=== PATIENT | female | born 1975 | race Caucasian/White ===

== ENCOUNTER 2021-02-22 12:15 | Emergency (ER) | payer MEDICARE, OTHER ==
[2021-02-22 12:39] VITALS: TEMP 98.5
[2021-02-22] MEDS ORDERED: SODIUM CHLORIDE 0.9% 1,000 ML IV STA (13:02)
[2021-02-22] MEDS ORDERED: KETOROLAC 15 MG/ML 1 ML VIAL IVP STA (13:16)
--- NOTE | 2021-02-22 13:18 | ED ---
General Adult HPI - General Chief complaint: Abdominal Pain Stated complaint: Abd Pain Time Seen by Provider: 02/22/21 13:02 Source: patient Mode of arrival: ambulatory Limitations: no limitations - History of Present Illness Initial comments: Dictation was produced using [employer] dictation software. please excuse any grammatical, word or spelling errors. Chief Complaint: 46-year-old female past medical history of kidney stones presen ts with left-sided flank pain. History of Present Illness: She is a 46-year-old female she was seen in [facility] emergency department for kidney stone 2 weeks ago. She states that after that appointment and her symptoms improved slowly the days after. She did schedule an appointment with her urologist for tomorrow. This morning her pain came back. She states that it's colicky located to left flank. Patient states that this is typical for her usual kidney stone pain. She was told that 2 weeks ago she had a small 2 mm stone The ROS documented in this emergency department record has been reviewed and confirmed by me. Those systems with pertinent positive or negative responses have been documented in the HPI. All other systems are other negative and/or noncontributory. PHYSICAL EXAM: General Impression: Alert and oriented x3, acute distress secondary to pain HEENT: Normocephalic atraumatic, extra-ocular movements intact, pupils equal and reactive to light bilaterally, mucous membranes moist. Cardiovascular: Heart regular rate and rhythm Chest: Able to complete full sentences, no retractions, no tachypnea Abdomen: abdomen soft, non-tender, non-distended, no organomegaly Musculoskeletal: Pulses present and equal in all extremities, no peripheral edema Motor: no focal deficits noted Neurological: CN II-XII grossly intact, no focal motor or sensory deficits noted Skin: Intact with no visualized rashes Psych: Normal affect and mood ED course: 46-year-old male presents to the emergency department for symptomatic nephrolithiasis. Vital signs upon arrival are within acceptable limits. Laboratory evaluation obtained. CBC, metabolic panel is unremarkable. Urinaly sis is negative. Ultrasound of the kidneys urinary bladder shows 0.5 cm right renal calculus without any bile or hydronephrosis. Patient reports clinically that her symptoms are the left side. At this point patient is well-appearing with stable vital signs and labs. Patient be discharged. She has an appointment with her urologist tomorrow. - Related Data Allergies Allergy/AdvReac Type Severity Reaction Status Date / Time No Known Allergies Allergy Verified 02/22/21 12:38 Review of Systems ROS Statement: Those systems with pertinent positive or pertinent negative responses have been documented in the HPI. ROS Other: All systems not noted in ROS Statement are negative. Past Medical History Additional Past Medical History / Comment(s): kidney stones History of Any Multi-Drug Resistant Organisms: None Reported Past Surgical History: Orthopedic Surgery, Uterine Ablation Additional Past Surgical History / Comment(s): eye surgery, rt foot Past Psychological History: No Psychological Hx Reported Smoking Status: Current every day smoker Past Alcohol Use History: None Reported Past Drug Use History: None Reported General Exam Limitations: no limitations Course Vital Signs 02/22/21 12:35 Temperature 98.5 F Pulse Rate 77 Respiratory 20 Rate Blood Pressure 129/73 O2 Sat by Pulse 97 Oximetry Medical Decision Making - Lab Data Result diagrams: 02/22/21 13:26 02/22/21 13:26 Lab Results 02/22/21 02/22/21 02/22/21 Range/Units 13:26 13:26 13:26 WBC 10.0 (3.8-10.6) k/uL RBC 4.23 (3.80-5.40) m/uL Hgb 13.2 (11.4-16.0) gm/dL Hct 38.7 (34.0-46.0) % MCV 91.5 (80.0-100.0) fL MCH 31.1 (25.0-35.0) pg MCHC 34.0 (31.0-37.0) g/dL RDW 12.9 (11.5-15.5) % Plt Count 290 (150-450) k/uL MPV 6.4 Neutrophils % 56 % Lymphocytes % 32 % Monocytes % 6 % Eosinophils % 4 % Basophils % 1 % Neutrophils # 5.6 (1.3-7.7) k/uL Lymphocytes # 3.2 (1.0-4.8) k/uL Monocytes # 0.6 (0-1.0) k/uL Eosinophils # 0.4 (0-0.7) k/uL Basophils # 0.1 (0-0.2) k/uL Sodium 139 (137-145) mmol/L Potassium 4.5 (3.5-5.1) mmol/L Chloride 110 H (98-107) mmol/L Carbon Dioxide 24 (22-30) mmol/L Anion Gap 5 mmol/L BUN 17 (7-17) mg/dL Creatinine 0.81 (0.52-1.04) mg/dL Est GFR (CKD-EPI)AfAm >90 (>60 ml/min/1.73 sqM) Est GFR (CKD-EPI)NonAf 89 (>60 ml/min/1.73 sqM) Glucose 89 (74-99) mg/dL Calcium 8.4 (8.4-10.2) mg/dL Urine Color Yellow Urine Appearance Clear (Clear) Urine pH 6.5 (5.0-8.0) Ur Specific [place] 1.024 (1.001-1.035) Urine Protein Negative (Negative) Urine Glucose (UA) Negative (Negative) Urine Ketones Negative (Negative) Urine Blood Negative (Negative) Urine Nitrite Negative (Negative) Urine Bilirubin Negative (Negative) Urine Urobilinogen <2.0 (<2.0) mg/dL Ur Leukocyte Esterase Negative (Negative) Disposition Clinical Impression: Kidney stone Disposition: HOME SELF-CARE Condition: Good Is patient prescribed a controlled substance at d/c from ED?: No Referrals: None,Stated [Primary Care Provider] - 1-2 days Time of Disposition: 15:43
[2021-02-22 13:49] LABS: Basophils # (A) 0.1 k/uL (0-0.2); Basophils % (A) 1 %; Eosinophils # (A) 0.4 k/uL (0-0.7); Eosinophils % (A) 4 %; HCT 38.7 % (34.0-46.0); HGB 13.2 gm/dL (11.4-16.0); Lymphocytes # (A) 3.2 k/uL (1.0-4.8); Lymphocytes % (A) 32 %; MCH 31.1 pg (25.0-35.0); MCV 91.5 fL (80.0-100.0); Mean Platelet Volume 6.4; Monocytes # (A) 0.6 k/uL (0-1.0); Monocytes % (A) 6 %; Neutrophils # (A) 5.6 k/uL (1.3-7.7); Neutrophils % (A) 56 %; Platelet Count 290 k/uL (150-450); RBC 4.23 m/uL (3.80-5.40); RDW 12.9 % (11.5-15.5)
[2021-02-22 13:59] LABS: African American GFR (CKD) >90 (>60 ml/min/1.73 sqM); Anion Gap 5 mmol/L; Blood Urea Nitrogen 17 mg/dL (7-17); Calcium 8.4 mg/dL (8.4-10.2); Carbon Dioxide 24 mmol/L (22-30); Chloride 110 mmol/L (98-107); Glucose 89 mg/dL (74-99); Non-African American GFR(CKD) 89 (>60 ml/min/1.73 sqM); Potassium 4.5 mmol/L (3.5-5.1); Sodium 139 mmol/L (137-145)
--- NOTE | 2021-02-22 14:10 | US ---
EXAMINATION TYPE: US kidneys/renal and bladder DATE OF EXAM: 02/22/2021 COMPARISON: NONE CLINICAL HISTORY: kidney stone pain. Right flank pain, midline pelvic and lower right pelvic pain; cailin lata stated has had prior renal stones EXAM MEASUREMENTS: Right Kidney: 10.9 x 6.2 x 4.9 cm Left Kidney: 11.4 x 5.6 x 6.4 cm Post Void Residual Volume: not assessed on EC patient Right Kidney: hyperechoic focus with posterior shadowing is noted mid pole = 0.4 x 0.5 x 0.3cm and co mpatible with renal calculus. No significant hydronephrosis. Left Kidney: No hydronephrosis or masses seen Bladder: wnl Bilateral Jets seen: yes IMPRESSION: 0.5 cm right renal calculus. No significant bilateral hydronephrosis.
[2021-02-22] MEDS ORDERED: MORPHINE SULFATE 4 MG/ML SYRINGE IVP STA (14:20)
[2021-02-22 15:38] LABS: Appearance,Urine Clear (Clear); Bilirubin,Urine Negative (Negative); Blood,Urine Negative (Negative); Color,Urine Yellow; Glucose,Urine (UA) Negative (Negative); Ketones,Urine Negative (Negative); Leukocyte Esterase,Urine Negative (Negative); Nitrite,Urine Negative (Negative); PH, Urine 6.5 (5.0-8.0); Protein,Urine Negative (Negative); Specific Gravity,Urine 1.024 (1.001-1.035); Urobilinogen,Urine <2.0 mg/dL (<2.0)
[2021-02-22 16:09] VITALS: BP 120/83; PULSE 74; RESP 16
== END 2021-02-22 16:09 | disposition home or self-care (01) ==
LOC: EC 12:15
DX: N20.0 Calculus of kidney (principal); F17.200 Nicotine dependence, unspecified, uncomplicated
CPT/HCPCS: 99284 ×2; 36415; 80048; 85025; 81003; 76770; J2270; J1885

== ENCOUNTER 2022-05-27 23:45 | Emergency (ER) | payer MEDICARE, OTHER ==
--- NOTE | 2022-05-28 00:18 | XR ---
EXAMINATION TYPE: XR KUB DATE OF EXAM: 05/28/2022 COMPARISON: NONE HISTORY: Left lower quadrant pain TECHNIQUE: 2 views FINDINGS: 2 views upright were obtained. No sign of intestinal obstruction or pneumoperitoneum. Fecal pattern is normal. No evidence of a mass. There are no pathologic calcifications over the kidneys. IMPRESSION: No acute
[2022-05-28 00:30] LABS: Basophils # (A) 0.1 k/uL (0-0.2); Basophils % (A) 1 %; Eosinophils # (A) 0.4 k/uL (0-0.7); Eosinophils % (A) 2 %; HCT 43.1 % (34.0-46.0); HGB 14.1 gm/dL (11.4-16.0); Lymphocytes # (A) 3.6 k/uL (1.0-4.8); Lymphocytes % (A) 21 %; MCH 30.4 pg (25.0-35.0); MCHC 32.6 g/dL (31.0-37.0); MCV 93.2 fL (80.0-100.0); Mean Platelet Volume 6.6; Monocytes % (A) 6 %; Neutrophils # (A) 11.5 k/uL (1.3-7.7); Neutrophils % (A) 69 %; Platelet Count 312 k/uL (150-450); RBC 4.63 m/uL (3.80-5.40); RDW 13.3 % (11.5-15.5); WBC 16.8 k/uL (3.8-10.6)
[2022-05-28 00:49] LABS: Albumin 4.3 g/dL (3.5-5.0); Potassium 4.5 mmol/L (3.5-5.1); Total Bilirubin 0.2 mg/dL (0.2-1.3); Total Protein 6.8 g/dL (6.3-8.2)
[2022-05-28] MEDS ORDERED: MORPHINE SULFATE 4 MG/ML SYRINGE IV STA ×2 (02:43→03:48)
--- NOTE | 2022-05-28 02:47 | ED ---
Abdominal Pain HPI - General Chief Complaint: Nausea/Vomiting/Diarrhea Stated Complaint: poss blockage Time Seen by Provider: 05/28/22 02:20 Source: patient Mode of arrival: ambulatory Limitations: no limitations - History of Present Illness MD Complaint: abdominal pain Onset/Timin -: hour(s) Location: [facility] Radiation: none Migration to: no migration Severity: moderate Quality: cramping, sharp Consistency: colicky Improves With: nothing Worsens With: nothing Associated Symptoms: nausea - Related Data Previous Rx's Medication Instructions Recorded Amoxic-Pot Clav 875-125Mg 1 tab PO Q12HR 1 Days #14 tab 05/28/22 [Augmentin 875-125] HYDROcodone/APAP 5-325MG [[place] 1 tab PO Q4HR PRN 3 Days #18 tab 05/28/22 5-325] Ondansetron Odt [Zofran ODT] 4 mg PO Q8HR PRN #10 tab 05/28/22 Allergies Allergy/AdvReac Type Severity Reaction Status Date / Time adhesive tape Allergy Unknown Verified 05/27/22 23:57 bacitracin Allergy Unknown Verified 05/27/22 23:57 [From Neosporin ([id number])] bee venom protein (honey bee) Allergy Unknown Verified 05/27/22 23:57 neomycin Allergy Unknown Verified 05/27/22 23:57 [From Neosporin ([id number])] polymyxin B Allergy Unknown Verified 05/27/22 23:57 [From Neosporin ([id number])] Review of Systems ROS Statement: Those systems with pertinent positive or pertinent negative responses have been documented in the HPI. ROS Other: All systems not noted in ROS Statement are negative. Constitutional: Denies: fever, chills Respiratory: Denies: cough, dyspnea Cardiovascular: Denies: chest pain, palpitations, edema Gastrointestinal: Reports: abdominal pain, nausea. Denies: vomiting, diarrhea, constipation, melena, hematochezia Genitourinary: Denies: dysuria, hematuria, abnormal menses Musculoskeletal: Denies: back pain Skin: Denies: rash Neurological: Denies: headache Past Medical History Additional Past Medical History / Comment(s): kidney stones, DIVERTICULITIS History of Any Multi-Drug Resistant Organisms: None Reported Past Surgical History: Orthopedic Surgery, Uterine Ablation Additional Past Surgical History / Comment(s): eye surgery, rt foot Past Psychological History: No Psychological Hx Reported Smoking Status: Current every day smoker Past Alcohol Use History: None Reported Past Drug Use History: None Reported General Exam Limitations: no limitations General appearance: alert, in no apparent distress Head exam: Present: atraumatic, normocephalic Eye exam: Present: normal appearance. Absent: scleral icterus, conjunctival injection Neck exam: Present: normal inspection Respiratory exam: Present: normal lung sounds bilaterally. Absent: respiratory distress, wheezes, rales, rhonchi, stridor Cardiovascular Exam: Present: regular rate, normal rhythm, normal heart sounds. Absent: systolic murmur, diastolic murmur, rubs, gallop GI/Abdominal exam: Present: soft, tenderness, normal bowel sounds. Absent: distended, guarding, rebound, rigid, mass, pulsatile mass, hernia Extremities exam: Present: normal inspection, normal capillary refill. Absent: pedal edema, calf tenderness Back exam: Present: normal inspection. Absent: CVA tenderness (R), CVA tenderness (L) Neurological exam: Present: alert Skin exam: Present: warm, dry, intact, normal color. Absent: rash Course Vital Signs 05/27/22 23:55 Temperature 98.0 F Pulse Rate 74 Respiratory 16 Rate Blood Pressure 104/64 O2 Sat by Pulse 98 Oximetry Medical Decision Making - Lab Data Result diagrams: 05/28/22 00:05 05/28/22 00:05 Lab Results 05/28/22 05/28/22 05/28/22 Range/Units 00:05 00:05 02:57 WBC 16.8 H (3.8-10.6) k/uL RBC 4.63 (3.80-5.40) m/uL Hgb 14.1 (11.4-16.0) gm/dL Hct 43.1 (34.0-46.0) % MCV 93.2 (80.0-100.0) fL MCH 30.4 (25.0-35.0) pg MCHC 32.6 (31.0-37.0) g/dL RDW 13.3 (11.5-15.5) % Plt Count 312 (150-450) k/uL MPV 6.6 Neutrophils % 69 % Lymphocytes % 21 % Monocytes % 6 % Eosinophils % 2 % Basophils % 1 % Neutrophils # 11.5 H (1.3-7.7) k/uL Lymphocytes # 3.6 (1.0-4.8) k/uL Monocytes # 1.0 (0-1.0) k/uL Eosinophils # 0.4 (0-0.7) k/uL Basophils # 0.1 (0-0.2) k/uL Sodium 136 L (137-145) mmol/L Potassium 4.5 (3.5-5.1) mmol/L Chloride 104 (98-107) mmol/L Carbon Dioxide 19 L (22-30) mmol/L Anion Gap 13 mmol/L BUN 18 H (7-17) mg/dL Creatinine 0.99 (0.52-1.04) mg/dL Est GFR (CKD-EPI)AfAm 79 (>60 ml/min/1.73 sqM) Est GFR (CKD-EPI)NonAf 69 (>60 ml/min/1.73 sqM) Glucose 84 (74-99) mg/dL Calcium 9.0 (8.4-10.2) mg/dL Total Bilirubin 0.2 (0.2-1.3) mg/dL AST 19 (14-36) U/L ALT 12 (4-34) U/L Alkaline Phosphatase 80 (38-126) U/L Total Protein 6.8 (6.3-8.2) g/dL Albumin 4.3 (3.5-5.0) g/dL Amylase 54 (30-110) U/L Lipase 175 (23-300) U/L Urine Color Yellow Urine Appearance Cloudy H (Clear) Urine pH 6.0 (5.0-8.0) Ur Specific [place] 1.032 (1.001-1.035) Urine Protein Trace H (Negative) Urine Glucose (UA) Negative (Negative) Urine Ketones Negative (Negative) Urine Blood Negative (Negative) Urine Nitrite Negative (Negative) Urine Bilirubin Negative (Negative) Urine Urobilinogen <2.0 (<2.0) mg/dL Ur Leukocyte Esterase Negative (Negative) Urine RBC 1 (0-5) /hpf Urine WBC 3 (0-5) /hpf Ur Squamous Epith Cells 5 H (0-4) /hpf Urine Bacteria Rare H (None) /hpf Urine Mucus Moderate H (None) /hpf Urine HCG, Qual (Not Detectd) 05/28/22 Range/Units 02:57 WBC (3.8-10.6) k/uL RBC (3.80-5.40) m/uL Hgb (11.4-16.0) gm/dL Hct (34.0-46.0) % MCV (80.0-100.0) fL MCH (25.0-35.0) pg MCHC (31.0-37.0) g/dL RDW (11.5-15.5) % Plt Count (150-450) k/uL MPV Neutrophils % % Lymphocytes % % Monocytes % % Eosinophils % % Basophils % % Neutrophils # (1.3-7.7) k/uL Lymphocytes # (1.0-4.8) k/uL Monocytes # (0-1.0) k/uL Eosinophils # (0-0.7) k/uL Basophils # (0-0.2) k/uL Sodium (137-145) mmol/L Potassium (3.5-5.1) mmol/L Chloride (98-107) mmol/L Carbon Dioxide (22-30) mmol/L Anion Gap mmol/L BUN (7-17) mg/dL Creatinine (0.52-1.04) mg/dL Est GFR (CKD-EPI)AfAm (>60 ml/min/1.73 sqM) Est GFR (CKD-EPI)NonAf (>60 ml/min/1.73 sqM) Glucose (74-99) mg/dL Calcium (8.4-10.2) mg/dL Total Bilirubin (0.2-1.3) mg/dL AST (14-36) U/L ALT (4-34) U/L Alkaline Phosphatase (38-126) U/L Total Protein (6.3-8.2) g/dL Albumin (3.5-5.0) g/dL Amylase (30-110) U/L Lipase (23-300) U/L Urine Color Urine Appearance (Clear) Urine pH (5.0-8.0) Ur Specific [place] (1.001-1.035) Urine Protein (Negative) Urine Glucose (UA) (Negative) Urine Ketones (Negative) Urine Blood (Negative) Urine Nitrite (Negative) Urine Bilirubin (Negative) Urine Urobilinogen (<2.0) mg/dL Ur Leukocyte Esterase (Negative) Urine RBC (0-5) /hpf Urine WBC (0-5) /hpf Ur Squamous Epith Cells (0-4) /hpf Urine Bacteria (None) /hpf Urine Mucus (None) /hpf Urine HCG, Qual Not Detected (Not Detectd) Disposition Clinical Impression: Diverticulitis Disposition: HOME SELF-CARE Condition: Good Instructions (If sedation given, give patient instructions): Diverticulitis ( ED) Prescriptions: Amoxic-Pot Clav 875-125Mg [Augmentin 875-125] 1 tab PO Q12HR 1 Days #14 tab HYDROcodone/APAP 5-325MG [[place] 5-325] 1 tab PO Q4HR PRN 3 Days #18 tab PRN Reason: Pain Ondansetron Odt [Zofran ODT] 4 mg PO Q8HR PRN #10 tab PRN Reason: Nausea Is patient prescribed a controlled substance at d/c from ED?: Yes When asked, does pt state using other controlled substances?: No If prescribed controlled substance>3 days was MAPS reviewed?: Prescribed <3 Days If opioid is for acute pain is fill amount 7 days or less?: Yes If Rx opioid, was Start Talking consent form obtained?: Yes Referrals: Ileana Rouse MD [Primary Care Provider] - 1-2 days Time of Disposition: 03:45
--- NOTE | 2022-05-28 03:39 | CT ---
EXAMINATION TYPE: CT abdomen pelvis wo con DATE OF EXAM: 05/28/2022 COMPARISON: None HISTORY: LLQ pain/ nausea CT DLP: 914.9 mGycm Automated exposure control for dose reduction was used. Images obtained from the diaphragm to the floor the pelvis with no contrast. Lung bases are clear. No pleural effusion. Heart size is normal. No pericardial effusion. Liver splee n and stomach pancreas appear intact. Gallbladder is contracted. The bile ducts are not dilated. There is no adrenal mass. Kidneys have normal size. There is no hydronephrosis. Ureters are not dilat ed. No retroperitoneal adenopathy. There is 1 mm calculus lateral left kidney. The bladder distends s moothly. No inguinal hernia. No free fluid in the pelvis. Uterus is anteverted. There is 4.8 cm cyst on the left ovary. Appendix not clearly seen. No sign of thickened appendix. There is some fat stranding and wall thickening of the proximal sigmoid colon. There are multiple sig moid diverticula. The lumbar vertebrae have normal alignment. No compression fracture. Bony pelvis is intact. The hip joints are intact. IMPRESSION: There is sigmoid diverticulitis. There are numerous colonic diverticula. No drainable fluid collectio n. Left ovarian cyst.
[2022-05-28 03:40] LABS: Appearance,Urine Cloudy (Clear); Bacteria,Urine Rare /hpf; Bilirubin,Urine Negative (Negative); Blood,Urine Negative (Negative); Color,Urine Yellow; Glucose,Urine (UA) Negative (Negative); Ketones,Urine Negative (Negative); Leukocyte Esterase,Urine Negative (Negative); Mucus,Urine Moderate /hpf; Nitrite,Urine Negative (Negative); Protein,Urine Trace (Negative); RBC,Urine 1 /hpf (0-5); Specific Gravity,Urine 1.032 (1.001-1.035); Squamous Epithelial Cell,Urine 5 /hpf (0-4); Urobilinogen,Urine <2.0 mg/dL (<2.0); WBC,Urine 3 /hpf (0-5)
[2022-05-28] MEDS ORDERED: AMOXIC-POT CLAV 875-125MG 1 EACH TAB PO STA (03:45)
[2022-05-28 03:56] VITALS: BP 133/83; PULSE 79; RESP 18; TEMP 98.7
== END 2022-05-28 04:08 | disposition home or self-care (01) ==
LOC: EC 23:45
DX: K57.92 Diverticulitis of intestine, part unspecified, without perforation or abscess without bleeding (principal); F17.200 Nicotine dependence, unspecified, uncomplicated; Z91.040 Latex allergy status; Z88.7 Allergy status to serum and vaccine; Z91.030 Bee allergy status; Z88.3 Allergy status to other anti-infective agents; Z88.8 Allergy status to other drugs, medicaments and biological substances
CPT/HCPCS: 36415; 80053; 82150; 83690; 85025; 81001; 81025; 74018; 74176; 99284; 96374; 96376; J2270

== ENCOUNTER 2022-08-06 14:26 | Emergency (ER) | payer MEDICARE, OTHER ==
[2022-08-06 14:30] VITALS: TEMP 98.4
--- NOTE | 2022-08-06 17:44 | US ---
EXAMINATION TYPE: US venous doppler duplex LE LT DATE OF EXAM: 08/06/2022 5:25 PM COMPARISON: NONE CLINICAL HISTORY: pain r/o dvt. Left lateral thigh pain. No redness or swelling. No hx dvt. Not on blood thinners. Patient states she had some veins cauterized. SIDE PERFORMED: Left TECHNIQUE: The lower extremity deep venous system is examined utilizing real time linear array sonog jonas with graded compression, doppler sonography and color-flow sonography. VESSELS IMAGED: Common Femoral Vein Deep Femoral Vein Greater Saphenous Vein * Femoral Vein Popliteal Vein Small Saphenous Vein * Proximal Calf Veins (* superficial vessels) Left Leg: Negative for DVT Grayscale, color doppler, spectral doppler imaging performed of the deep veins of the lower extremiti es. There is normal flow, compressibility, vascular waveforms. IMPRESSION: No evidence of deep vein thrombosis of the left lower extremity.
[2022-08-06] MEDS ORDERED: DEXAMETHASONE SOD PHOSPHATE 10 MG/ML 1 ML VIAL IM STA (18:06)
--- NOTE | 2022-08-06 18:16 | ED ---
Lower Extremity Injury HPI - General Chief Complaint: Extremity Injury, Lower Stated Complaint: DVT L leg-sent by PCP Time Seen by Provider: 08/06/22 17:53 Source: patient, RN notes reviewed, old records reviewed Mode of arrival: ambulatory Limitations: no limitations - History of Present Illness Initial Comments: Well-appearing 47-year-old female presents to the emergency room sent by her primary care doctor to rule out DVT left leg. Patient states she has a dull constant ache deep to the bone on her left thigh for past couple days, worse today. She states that she has had previous episodes of this pain months ago that resolved on its own. She has been using ice with some relief. Denies any fevers, swelling or injury. MD Complaint: other (left thigh pain) -: days(s) (2) Severity scale (1-10): 6 Treatments Prior to Arrival: cold therapy - Related Data Previous Rx's Medication Instructions Recorded Amoxic-Pot Clav 875-125Mg 1 tab PO Q12HR 1 Days #14 tab 05/28/22 [Augmentin 875-125] HYDROcodone/APAP 5-325MG [[place] 1 tab PO Q4HR PRN 3 Days #18 tab 05/28/22 5-325] Ondansetron Odt [Zofran ODT] 4 mg PO Q8HR PRN #10 tab 05/28/22 Allergies Allergy/AdvReac Type Severity Reaction Status Date / Time adhesive tape Allergy Unknown Verified 08/06/22 14:29 bacitracin Allergy Unknown Verified 08/06/22 14:29 [From Neosporin ([id number])] bee venom protein (honey bee) Allergy Unknown Verified 08/06/22 14:29 neomycin Allergy Unknown Verified 08/06/22 14:29 [From Neosporin ([id number])] polymyxin B Allergy Unknown Verified 08/06/22 14:29 [From Neosporin ([id number])] Review of Systems ROS Statement: Those systems with pertinent positive or pertinent negative responses have been documented in the HPI. ROS Other: All systems not noted in ROS Statement are negative. Past Medical History Past Medical History: Thyroid Disorder Additional Past Medical History / Comment(s): kidney stones, DIVERTICULITIS History of Any Multi-Drug Resistant Organisms: None Reported Past Surgical History: Orthopedic Surgery, Uterine Ablation Additional Past Surgical History / Comment(s): eye surgery, rt foot Past Psychological History: No Psychological Hx Reported Smoking Status: Current every day smoker Past Alcohol Use History: None Reported Past Drug Use History: None Reported General Exam Limitations: no limitations General appearance: alert, in no apparent distress Head exam: Present: atraumatic Eye exam: Present: normal appearance. Absent: scleral icterus, conjunctival in jection Neck exam: Present: full ROM. Absent: meningismus Respiratory exam: Absent: respiratory distress, accessory muscle use Cardiovascular Exam: Present: regular rate Left Hip exam: Absent: tenderness, swelling Upper Leg exam: Present: tenderness (Left lateral thigh). Absent: swelling, abrasion, ecchymosis, deformity, erythema Knee exam: Absent: tenderness, swelling Lower Leg exam: Absent: tenderness, swelling Ankle exam: Absent: tenderness, swelling Foot/Toe exam: Absent: tenderness, swelling Neurovascular tendon exam: Present: no vascular compromise. Absent: abnormal cap refill, motor deficit, sensory deficit, extremity cold to touch, pallor, abnormal 2-point discrimination, foot drop Gait: observed and normal Neurological exam: Present: alert, oriented X3, normal gait Psychiatric exam: Present: normal affect, normal mood Skin exam: Present: warm, dry, intact, normal color. Absent: cyanosis, diaphoretic Course Vital Signs 08/06/22 08/06/22 14:28 18:42 Temperature 98.4 F Pulse Rate 75 74 Respiratory 20 18 Rate Blood Pressure 120/74 122/74 O2 Sat by Pulse 98 96 Oximetry Medical Decision Making - Medical Decision Making Patient states has had similar mid lateral thigh pain in the past several months ago that resolved on its own. Pain returned two days ago and worse today. She denies any swelling. No injury. She is ambulatory with steady gait. No bowel or bladder incontinence. She does state she has occasional low back and left hip pain. She was sent from PCP office to rule out DVT. Ultrasound negative for DVT. Symptoms are more consistent with L4 radiculopathy. She was directed to take Tylenol and or Motrin as needed for pain, use topical pain relievers. She was given Decadron in the ER. Discharged to followup with primary care doctor for continuation of care. She is agreeable to this plan. Disposition Clinical Impression: Left thigh pain Disposition: HOME SELF-CARE Condition: Good Instructions (If sedation given, give patient instructions): Leg Pain (ED) Additional Instructions: Tylenol and Motrin for pain or discomfort. You can use topical pain relievers like icy hot or Biofreeze. Follow-up with your primary care doctor next week for continuation of care. Is patient prescribed a controlled substance at d/c from ED?: No Referrals: Ileana Rouse MD [Primary Care Provider] - 1-2 days Time of Disposition: 18:17
[2022-08-06 18:45] VITALS: BP 122/74; PULSE 74; RESP 18
== END 2022-08-06 18:45 | disposition home or self-care (01) ==
LOC: EC 14:26
DX: M79.652 Pain in left thigh (principal); E07.9 Disorder of thyroid, unspecified; F17.200 Nicotine dependence, unspecified, uncomplicated; L23.1 Allergic contact dermatitis due to adhesives; Z88.1 Allergy status to other antibiotic agents; Z91.030 Bee allergy status
CPT/HCPCS: 93971; 99283; 96372; J1100

== ENCOUNTER → 2022-08-18 | Outpatient (CLI) | payer MEDICARE, OTHER ==
--- NOTE | 2022-08-18 17:15 | P.HPBAR ---
Bariatric H&P - History & Physicial H&P Date: 08/18/22 History & Physicial: Visit/CC: Patient initial contact: Initial weight: Initial weight in pounds: Height: Initial BMI: Last weight: Current weight: Current weight in pounds: Current BMI: [place] body weight (based on NIH guidelines): Excess body weight loss: The patient is a 47 year-old F who presents for Bariatric Assessment. She wants to lose more weight. She is looking into the sleeve or the gastric bypass. She has tried adipex and working out. Highest weight is 235 pounds. She has lost up to 15 pounds in the past. She has family history of weight problems in entire family. She has history of ulcers and had emergency surgery for ulcers she was septic. Was laparoscopic surgery. She takes ibuprofen for arthritis. She has back pain, hip pain, and knees, ankle, and feet. She has rheumatoid arthritis. No family history of bloods. No heartburn. No dysphagia. No stomach or esophageal. No colon cancer. She has diverticulitis and had colonoscopy, 6 months ago. Colonscopy was done in [place]. EGD advised. Review CT scan with pandiverticulosis and recent itis from May. Past Medical History Past Medical History: Thyroid Disorder Additional Past Medical History / Comment(s): kidney stones, DIVERTICULITIS History of Any Multi-Drug Resistant Organisms: None Reported Past Surgical History: Orthopedic Surgery, Uterine Ablation Additional Past Surgical History / Comment(s): eye surgery, rt foot Past Psychological History: No Psychological Hx Reported Smoking Status: Current every day smoker Past Alcohol Use History: None Reported Past Drug Use History: None Reported Bariatric Checklist Checklist: Plan: Checklist: EGD: 1. Hiatal hernia: 2. H. Pylori: HgbA1c: Vitamin D: Smoking: Primary care physician referral: Psychiatry clearance: Cardiology clearance: Sleep study: Diet journal: VTE risk score: VTE risk level: Rehab needs at discharge:
[2022-08-18 17:31] VITALS: BP 118/79; PULSE 88; RESP 16; TEMP 98.9; BMI 37.5
== END | disposition home or self-care (01) ==
LOC: BARWHC3 16:22
PROVIDERS: ATTEND Surgery Plastic and Reconstructive Surgery
DX: Z48.815 Encounter for surgical aftercare following surgery on the digestive system (principal)
CPT/HCPCS: 99202

== ENCOUNTER → 2022-09-03 | Outpatient (CLI) | payer MEDICARE, OTHER ==
[2022-09-03 09:45] LABS: INR 0.9 (<1.2); Partial Thromboplastin Time 23.5 sec (22.0-30.0); Prothrombin Time 9.5 sec (9.0-12.0)
[2022-09-03 14:30] LABS: HCT 43.1 % (37.2-46.3); HGB 14.3 g/dL (12.0-15.0); MCH 30.6 pg (27.0-32.0); MCHC 33.2 g/dL (32.0-37.0); MCV 92.3 fL (80.0-97.0); NRBC Per 100 WBC 0 /100 WBCS (0.0-0.0); Platelet Count 396 X 10*3/uL (140-440); RBC 4.67 X 10*6/uL (4.10-5.20); RDW 13.2 % (11.5-14.5); WBC 14.83 X 10*3/uL (4.50-10.00)
[2022-09-03 15:37] LABS: Chol/HDL Ratio 3.84 Ratio; LDL Cholesterol,Calculated 160.4 mg/dL (0.0-131.0); Prealbumin 25.3 mg/dL (18.0-42.0); VLDL Calculation 19.34 mg/dL (5.00-40.00)
[2022-09-03 15:47] LABS: % Iron Saturation 18.53 (12.00-45.00); ALT 27 U/L (8-44); AST 62 U/L (13-35); Albumin 4.9 g/dL (3.8-4.9); Albumin/Globulin Ratio 1.58 (1.60-3.17); Alkaline Phosphatase 82 U/L (41-126); BUN/Creat Ratio 19.87 Ratio (12.00-20.00); Blood Urea Nitrogen 18.2 mg/dL (9.0-27.0); Calcium 10.1 mg/dL (8.7-10.3); Carbon Dioxide 21.9 mmol/L (20.0-27.5); Chloride 102 mmol/L (96-109); Globulin 3.1 g/dL (1.6-3.3); Glucose 84 mg/dL (70-110); Iron 68 ug/dL (50-170); Magnesium 2.2 mg/dL (1.5-2.4); Non-African American GFR(CKD) 75.1 (60.0-200.0); Phosphorus 4.6 mg/dL (2.4-5.1); Sodium 138 mmol/L (135-145); Total Iron Binding Capacity 365 ug/dL (228-460); Total Protein 7.9 g/dL (6.2-8.2)
== END | disposition home or self-care (01) ==
LOC: LABWHC1 07:45
PROVIDERS: ATTEND Surgery Plastic and Reconstructive Surgery
DX: E66.01 Morbid (severe) obesity due to excess calories (principal); E89.1 Postprocedural hypoinsulinemia; D50.8 Other iron deficiency anemias; K91.2 Postsurgical malabsorption, not elsewhere classified; E44.0 Moderate protein-calorie malnutrition; E45 Retarded development following protein-calorie malnutrition; E55.9 Vitamin D deficiency, unspecified; K74.1 Hepatic sclerosis; N19 Unspecified kidney failure; T56.894A Toxic effect of other metals, undetermined, initial encounter; K50.90 Crohn's disease, unspecified, without complications
CPT/HCPCS: 84255; 84134; 84425; 80061; 80053; 82607; 82728; 82525; 82746; 83540; 83550; 83735; 84100; 84443; 84590; 84630; 85027; 85610; 85730; 82306; 83970; 83036; 80307; 93005; 36415; G0480; G0482; 80323

== ENCOUNTER 2022-09-13 08:48 | Day surgery (SDC) | payer MEDICARE, OTHER ==
--- NOTE | 2022-09-13 08:43 | P.GSHP ---
History of Present Illness H&P Date: 09/13/22 CHIEF COMPLAINT: GERD HISTORY OF PRESENT ILLNESS: The patient is a 47-year-old female who presents reports gastroesophageal reflux disease. Upper endoscopy was offered for further evaluation and management. PAST MEDICAL HISTORY: Please see list. PAST SURGICAL HISTORY: Please see list. MEDICATIONS: Please see list. ALLERGIES: Please see list. SOCIAL HISTORY: No illicit drug use FAMILY HISTORY: No reports of Crohn disease or ulcerative colitis. REVIEW OF ORGAN SYSTEMS: CONSTITUTIONAL: No reports of fevers or chills. GI: Denies any blood in stools or constipation. PHYSICAL EXAM: VITAL SIGNS: Stable GENERAL: Well-developed and pleasant in no acute distress. HEENT: No scleral icterus. Extraocular movements grossly intact. Moist buccal mucosa. NECK: Supple without lymphadenopathy. CHEST: Unlabored respirations. Equal bilateral excursions. CARDIOVASCULAR: Regular rate and rhythm. Distal 2+ pulses. ABDOMEN: Soft, nondistended. MUSCULOSKELETAL: No clubbing, cyanosis, or edema. ASSESSMENT: 1. Gastroesophageal reflux disease PLAN: 1. Recommend proceeding with an upper endoscopy Past Medical History Past Medical History: Asthma, GERD/Reflux, Rheumatoid Arthritis (RA), Thyroid Disorder Additional Past Medical History / Comment(s): kidney stones, DIVERTICULITIS . low BP, recent upper stomach pain, POTS, sharp pains occasionally to ruq, seen in bariatric center History of Any Multi-Drug Resistant Organisms: None Reported Past Surgical History: Section, Orthopedic Surgery, Uterine Ablation Additional Past Surgical History / Comment(s): eye surgery, rt foot, colonoscopy Past Anesthesia/Blood Transfusion Reactions: Postoperative Nausea & Vomiting (PONV) Additional Past Anesthesia/Blood Transfusion Reaction / Comment(s): no blood transfusions Smoking Status: Vaper - Past Family History Father Family Medical History: Congestive Heart Failure (CHF) Mother Family Medical History: Rheumatoid Arthritis (RA), Thyroid Disorder Medications and Allergies Home Medications Medication Instructions Recorded Confirmed Type Ondansetron Odt [Zofran ODT] 4 mg PO Q8HR PRN #10 tab 05/28/22 09/10/22 Rx Albuterol Sulfate [Ventolin HFA] 2 puff INHALATION Q4H PRN 09/08/22 09/10/22 History Dextroamphetamine/Amphetamine 60 mg PO DAILY 09/08/22 09/10/22 History [Dextroamp-Amphetamin 15 mg Tab] Ibuprofen 800 mg PO Q8H PRN 09/08/22 09/10/22 History Midodrine HCl [ProAmantine] 2.5 mg PO BID 09/08/22 09/10/22 History Dicyclomine [Bentyl] 10 mg PO BID 09/10/22 09/10/22 History Levothyroxine Sodium [Synthroid] 125 mcg PO DAILY 09/10/22 09/10/22 History Metoprolol Tartrate [Lopressor] 12.5 mg PO DAILY 09/10/22 09/10/22 History lamoTRIgine 150 mg PO DAILY 09/10/22 09/10/22 History Allergies Allergy/AdvReac Type Severity Reaction Status Date / Time adhesive tape Allergy Unknown Verified 09/08/22 12:01 bacitracin Allergy Unknown Verified 09/08/22 12:01 [From Neosporin ([id number])] bee venom protein (honey bee) Allergy Swelling Verified 09/08/22 12:01 neomycin Allergy Rash/Hives Verified 09/08/22 12:01 [From Neosporin ([id number])] polymyxin B Allergy Rash/Hives Verified 09/08/22 12:01 [From Neosporin ([id number])]
[2022-09-13] MEDS ORDERED: LACTATED RINGERS 1,000 ML IV SCH (09:02)
[2022-09-13 09:17] VITALS: RESP 16; TEMP 98.7
[2022-09-13] MEDS ORDERED: LIDOCAINE 2% INJ 20 MG/ML (2 ML VIAL) ONE (10:01)
[2022-09-13] MEDS ORDERED: PROPOFOL 10 MG/ML 20 ML VIAL IV ONE (10:01)
--- NOTE | 2022-09-13 10:22 | P.PCN ---
Date of Procedure: 09/13/22 Description of Procedure: PREOPERATIVE DIAGNOSIS: Gastroesophageal reflux disease. Morbid obesity. POSTOPERATIVE DIAGNOSIS: Gastroesophageal reflux disease. Morbid obesity. Gastritis. OPERATION: Esophagogastroduodenoscopy with biopsies along antrum and duodenum SURGEON: Rosa Edwards MD ANESTHESIA: MAC. INDICATIONS: The patient is a 47-year-old female who presents with reflux disease. Benefits and risks of the procedure were described. Informed consent was obtained. DESCRIPTION: The patient was brought into the endoscopy suite and laid in the left lateral decubitus position. An Olympus gastroscope was passed along the posterior oropharynx down to the distal esophagus where the squamocolumnar junction was encountered at 40 cm from the incisors. The stomach was entered and no bile reflux was found. Additional findings are listed below. Biopsies with cold forceps were obtained of the antrum. The first through third portion of the duodenum was examined. Retroflexion of the scope confirmed Hill grade 2 lower esophageal valve. The squamocolumnar junction demonstrated LA grade A erosive esophagitis. The stomach was desufflated. The patient tolerated the procedure well. FINDINGS: Squamocolumnar junction 40 cm from the incisors. Diaphragmatic hiatus at 40 cm. Hill grade 2 lower esophageal valve. LA grade A erosive esophagitis. No active duodenitis. Chronic gastritis RECOMMENDATIONS: Upper endoscopy as needed. Plan - Discharge Summary Discharge Rx Participant: No New Discharge Prescriptions: Continue Ibuprofen 800 mg PO Q8H PRN PRN Reason: Pain Midodrine HCl [ProAmantine] 2.5 mg PO BID Dicyclomine [Bentyl] 10 mg PO BID Levothyroxine Sodium [Synthroid] 125 mcg PO DAILY lamoTRIgine 150 mg PO DAILY Ondansetron Odt [Zofran ODT] 4 mg PO Q8HR PRN #10 tab PRN Reason: Nausea Dextroamphetamine/Amphetamine [Dextroamp-Amphetamin 15 mg Tab] 60 mg PO DAILY Albuterol Sulfate [Ventolin HFA] 2 puff INHALATION Q4H PRN PRN Reason: Wheezing Metoprolol Tartrate [Lopressor] 12.5 mg PO DAILY Discharge Medication List Ondansetron Odt [Zofran ODT] 4 mg PO Q8HR PRN #10 tab 05/28/22 [Rx] Albuterol Sulfate [Ventolin HFA] 2 puff INHALATION Q4H PRN 09/08/22 [History] Dextroamphetamine/Amphetamine [Dextroamp-Amphetamin 15 mg Tab] 60 mg PO DAILY 09/08/22 [History] Ibuprofen 800 mg PO Q8H PRN 09/08/22 [History] Midodrine HCl [ProAmantine] 2.5 mg PO BID 09/08/22 [History] Dicyclomine [Bentyl] 10 mg PO BID 09/10/22 [History] Levothyroxine Sodium [Synthroid] 125 mcg PO DAILY 09/10/22 [History] Metoprolol Tartrate [Lopressor] 12.5 mg PO DAILY 09/10/22 [History] lamoTRIgine 150 mg PO DAILY 09/10/22 [History] Follow up Appointment(s)/Referral(s): Roas Edwards MD [STAFF PHYSICIAN] - 09/22/22 Patient Instructions/Handouts: Gastritis (DC), Diet for Stomach Ulcers and Gastritis (GEN) Discharge Disposition: HOME SELF-CARE
[2022-09-13 10:42] VITALS: PULSE 66
[2022-09-13 10:53] VITALS: BP 110/71
== END 2022-09-13 11:45 | disposition home or self-care (01) ==
LOC: ORWHC2ENDO 08:48
PROVIDERS: ATTEND Surgery Plastic and Reconstructive Surgery
DX: K29.50 Unspecified chronic gastritis without bleeding (principal); K21.9 Gastro-esophageal reflux disease without esophagitis; K31.89 Other diseases of stomach and duodenum; E66.01 Morbid (severe) obesity due to excess calories; J45.909 Unspecified asthma, uncomplicated; K20.80 Other esophagitis without bleeding; Z79.51 Long term (current) use of inhaled steroids; Z79.899 Other long term (current) drug therapy; Z79.890 Hormone replacement therapy; Z79.2 Long term (current) use of antibiotics; Z79.891 Long term (current) use of opiate analgesic; Z87.442 Personal history of urinary calculi; Z98.890 Other specified postprocedural states
CPT/HCPCS: 81025; 88305; 43239; J2704; J2001

== ENCOUNTER → 2022-10-11 | Outpatient (CLI) | payer MEDICARE, OTHER ==
[2022-10-11 11:19] VITALS: BMI 43.5
== END ==
LOC: BARWHC3 08:46
PROVIDERS: ATTEND Surgery Plastic and Reconstructive Surgery
DX: E66.01 Morbid (severe) obesity due to excess calories (principal); Z71.3 Dietary counseling and surveillance; Z68.41 Body mass index [BMI] 40.0-44.9, adult; Z91.048 Other nonmedicinal substance allergy status; Z88.1 Allergy status to other antibiotic agents; Z91.030 Bee allergy status
CPT/HCPCS: 97804

== ENCOUNTER 2022-12-13 07:30 | Inpatient (IN) | payer MEDICARE, OTHER ==
[~2022-12-13 07:30] MED LIST: CHLORHEXIDINE GLUCONATE 15 ML CUP MUCOUS MEM PRN; DEXAMETHASONE SOD PHOSPHATE 4 MG/ML 1 ML VIAL IV ONE; ENOXAPARIN 40 MG/0.4 ML SYRINGE SQ PRN; LIDOCAINE 1% (10MG/ML) FOR IV START INTRADERMA PRN; ONDANSETRON 4 MG/2 ML VIAL IVP PRN; PANTOPRAZOLE 40 MG/10 ML VIAL IVP PRN; SCOPOLAMINE 1 MG/72 HR PATCH TRANSDERM ONE
--- NOTE | 2022-12-13 09:36 | P.GSHP ---
History of Present Illness H&P Date: 12/13/22 CHIEF COMPLAINT: Morbid obesity HISTORY OF PRESENT ILLNESS: The patient is a 47-year-old female who comes with lifelong morbid obesity. As result of morbid obesity, she has developed hypertensive heart disease, osteoarthritis of the hips and knees. She has completed medical supervised weight loss. She completed medical including cardiac assessment. She has completed psychological risk assessment. All surgical options were reviewed. She elected for sleeve gastrectomy. At height of 5 feet 6 inches, her ideal body weight is 154 pounds. She comes in 230 pounds. Her body mass index is 37.1 She is 76 pounds overweight. PAST MEDICAL HISTORY: 1. Morbid obesity due to excess calories 2. Body mass index of 37.1 3. Osteoarthritis of the knees. 4. Osteoarthritis of the lower back. 5. Hypertensive heart disease. 6. Depressive disorder 7. Generalized anxiety disorder 8. Postoperative nausea or vomiting PAST SURGICAL HISTORY: Reviewed HOME MEDICATIONS: Reviewed ALLERGIES: Reviewed SOCIAL HISTORY: Reviewed FAMILY HISTORY: No family history of ulcerative colitis disease or Crohn's disease. Family history of morbid obesity. No lupus in the family. No reports of stomach or esophageal cancer. REVIEW OF ORGAN SYSTEMS: CONSTITUTIONAL: Height 5 foot 6 inches, weight 104.3 pounds. BMI 37.1 HEENT: Denies any active troubles with vision or hearing. ENDOCRINE: Denies diabetes. Denies hypothyroidism. CARDIOVASCULAR: Past reports of palpitations or heart attacks or chest pain. RESPIRATORY: Has daytime somnolence. GASTROINTESTINAL: Denies any bright red blood per rectum. Has gastroesophageal reflux disease. MUSCULOSKELETAL: Has lower back pain and joint pain. Has osteoarthritis of the knees. NEURO: No headaches. No seizure disorders. PSYCH: Has depression. No suicidal ideation. RHEUMATOLOGIC: No lupus. No rheumatoid arthritis. HEMATOLOGIC: Denies any abnormal bleeding or bruising. No personal history of DVTs. SKIN: Has rash. No skin cancer. PHYSICAL EXAM: VITAL SIGNS: Height 5 foot 6 inches, weight 104.3 pounds. BMI 37.1 GENERAL: Well-developed in no acute distress. HEENT: No scleral icterus. Extraocular movements grossly intact. Hears conversational speech. No nasal drainage. NECK: Supple without lymphadenopathy. CHEST: Nonlabored respirations with equal bilateral excursions. CARDIOVASCULAR: Regular rate and regular rhythm. Distal 2+ pulses. ABDOMEN: Obese, soft, nontender, nondistended. MUSCULOSKELETAL: No clubbing, cyanosis. NEURO: No focal or lateralizing signs. Cranial nerves 2 through 12 grossly within normal limits. PSYCH: Appropriate affect. Alert and oriented to person, place and time. SKIN: Good skin turgor. Well perfused. ASSESSMENT: 1. Morbid obesity due to excess calories 2. Body mass index of 37.1 3. Osteoarthritis of the knees. 4. Osteoarthritis of the lower back. 5. Hypertensive heart disease. 6. Depressive disorder 7. Generalized anxiety disorder 8. Postoperative nausea or vomiting PLAN: 1. Bariatric options between a sleeve, band and a Nina-en-Y gastric bypass were reviewed in detail. The patient elected for sleeve gastrectomy. Robotic assisted approach described. 2. The [place] [facility] Data was also reviewed with benefits and risks as described. 3. An 8 page second-generation bariatric consent form was reviewed in detail including potential of bleeding, infection, leaks, adequate weight loss, nutritional deficiencies which the patient demonstrated understanding of the risks. 4. A 2 week high-protein low caloric 800 kcal diet described to address hepatomegaly. 5. Preoperative labs including complete metabolic panel and CBC with type and screen recommended. 6. DVT prophylaxis per [place] [facility] collaborative. 7. Antibiotic prophylaxis. 8. Inpatient hospitalization anticipated for more than 2 nights. 9. All questions and concerns were addressed with the patient. 10. She is at elevated risk for perioperative complications secondary positive nausea or vomiting 11. Overall, patient has expressed understanding of bariatric care including postoperative diet and commitment of lifestyle. Patient should benefit from surgical intervention for correction of her morbid obesity. Past Medical History Past Medical History: Asthma, Osteoarthritis (OA), Thyroid Disorder Additional Past Medical History / Comment(s): kidney stones, DIVERTICULITIS. 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 POTS History of Any Multi-Drug Resistant Organisms: None Reported Past Surgical History: Section, Orthopedic Surgery, Tonsillectomy, Uterine Ablation Additional Past Surgical History / Comment(s): eye surgery, rt foot Past Anesthesia/Blood Transfusion Reactions: Postoperative Nausea & Vomiting (PONV) Smoking Status: Former smoker - Past Family History Sister(s) Family Medical History: Cancer Additional Family Medical History / Comment(s): uterine Mother Family Medical History: Cancer Additional Family Medical History / Comment(s): skin Medications and Allergies Home Medications Medication Instructions Recorded Confirmed Type Hilarioetron Odt [Zofran ODT] 4 mg PO Q8HR PRN #10 tab 05/28/22 12/07/22 Rx Albuterol Sulfate [Ventolin HFA] 2 puff INHALATION Q4H PRN 09/08/22 12/07/22 History Dextroamphetamine/Amphetamine 60 mg PO DAILY 09/08/22 12/07/22 History [Dextroamp-Amphetamin 15 mg Tab] Ibuprofen 800 mg PO Q8H PRN 09/08/22 12/07/22 History Midodrine HCl [ProAmantine] 2.5 mg PO BID 09/08/22 12/07/22 History Levothyroxine Sodium [Synthroid] 125 mcg PO DAILY 09/10/22 12/07/22 History Metoprolol Tartrate [Lopressor] 12.5 mg PO DAILY 09/10/22 12/07/22 History lamoTRIgine 150 mg PO DAILY 09/10/22 12/07/22 History Allergies Allergy/AdvReac Type Severity Reaction Status Date / Time adhesive tape Allergy Unknown Verified 12/07/22 13:37 bacitracin Allergy Unknown Verified 12/07/22 13:37 [From Neosporin ([id number])] bee venom protein (honey bee) Allergy Swelling Verified 12/07/22 13:37 neomycin Allergy Rash/Hives Verified 12/07/22 13:37 [From Neosporin ([id number])] polymyxin B Allergy Rash/Hives Verified 12/07/22 13:37 [From Neosporin ([id number])]
[2022-12-13] MEDS: LACTATED RINGERS 1,000 ML IV SCH (13:17)
[2022-12-13] MEDS ORDERED: LIDOCAINE 1% (10MG/ML) FOR IV START INTRADERMA ONE (13:31)
[2022-12-13 13:51] LABS: Basophils # (A) 0.1 k/uL (0-0.2); Basophils % (A) 1 %; Eosinophils # (A) 0.2 k/uL (0-0.7); Eosinophils % (A) 2 %; HCT 43.3 % (34.0-46.0); HGB 15.4 gm/dL (11.4-16.0); Lymphocytes # (A) 2.4 k/uL (1.0-4.8); Lymphocytes % (A) 22 %; MCH 31.9 pg (25.0-35.0); MCHC 35.6 g/dL (31.0-37.0); MCV 89.5 fL (80.0-100.0); Monocytes # (A) 0.5 k/uL (0-1.0); Monocytes % (A) 5 %; Neutrophils # (A) 7.8 k/uL (1.3-7.7); Neutrophils % (A) 70 %; Platelet Count 325 k/uL (150-450); RBC 4.84 m/uL (3.80-5.40); RDW 13.3 % (11.5-15.5); WBC 11.2 k/uL (3.8-10.6)
[2022-12-13 14:06] LABS: Albumin 4.6 g/dL (3.5-5.0); Calcium 8.9 mg/dL (8.4-10.2); Potassium 4.2 mmol/L (3.5-5.1); Total Bilirubin 0.6 mg/dL (0.2-1.3); Total Protein 7.7 g/dL (6.3-8.2)
[2022-12-13] MEDS ORDERED: HYDROmorphone (PF) 1 MG/ML ONE (14:09)
[2022-12-13] MEDS ORDERED: LIDOCAINE 2% INJ 20 MG/ML (2 ML VIAL) ONE (14:09)
[2022-12-13] MEDS ORDERED: SUCCINYLCHOLINE CHLORIDE 200 MG/10 ML VIAL IV ONE (14:09)
[2022-12-13] MEDS ORDERED: MIDAZOLAM 2 MG/2 ML VIAL ONE (14:09)
[2022-12-13] MEDS ORDERED: GLYCOPYRROLATE 0.2 MG/ML 2 ML VIAL ONE (14:09)
[2022-12-13] MEDS ORDERED: ROCURONIUM 10 MG/ML (5 ML VIAL) IV ONE (14:09)
[2022-12-13] MEDS ORDERED: NEOSTIGMINE 1 MG/ML 10 ML VIAL ONE (14:09)
[2022-12-13] MEDS ORDERED: fentaNYL (PF) 50 MCG/ML 2 ML AMP ONE (14:09)
[2022-12-13] MEDS ORDERED: KETOROLAC 15 MG/ML 1 ML VIAL ONE (14:09)
[2022-12-13] MEDS ORDERED: PROPOFOL 10 MG/ML 20 ML VIAL IV ONE (14:09)
[2022-12-13] MEDS ORDERED: BUPIVACAIN-EPI 0.25%-1:200,000 30 ML VIAL SQ ONE (14:14)
[2022-12-13] MEDS ORDERED: LACTATED RINGERS 1,000 ML IV ONE (15:15)
[2022-12-13] MEDS ORDERED: ALBUTEROL HFA INHALER INHALATION PRN (16:04)
[2022-12-13] MEDS ORDERED: HYOSCYAMINE ORAL DROPS 1.875 MG/15 ML BOTTLE PO PRN (16:04)
[2022-12-13] MEDS ORDERED: diphenhydrAMINE 50 MG/ML 1 ML VIAL IVP PRN (16:04)
[2022-12-13] MEDS ORDERED: NALOXONE 0.4 MG/ML 1 ML VIAL IV PRN ×2 (16:04→19:24)
[2022-12-13] MEDS ORDERED: HYDROmorphone 1 MG/ML 1 ML SYRINGE IVP PRN (16:04)
--- NOTE | 2022-12-13 16:10 | P.OP ---
Date of Procedure: 12/13/22 Description of Procedure: SURGEON: JUSTINO MALLOY MD PREOPERATIVE DIAGNOSES: 1. Morbid obesity due to excess calories 2. Body mass index of 37.1 3. Osteoarthritis of the knees. 4. Osteoarthritis of the lower back. 5. Hypertensive heart disease. 6. Depressive disorder 7. Generalized anxiety disorder 8. Postoperative nausea or vomiting 9. Pre-existing persistent leukocytosis POSTOPERATIVE DIAGNOSES: 1. Morbid obesity due to excess calories 2. Body mass index of 37.1 3. Osteoarthritis of the knees. 4. Osteoarthritis of the lower back. 5. Hypertensive heart disease. 6. Depressive disorder 7. Generalized anxiety disorder 8. Postoperative nausea or vomiting 9. Pre-existing persistent leukocytosis OPERATION: 1. Robotic assisted daVinci Xi laparoscopic sleeve gastrectomy with 40-Tongan bougie, multiport. 2. Intraoperative esophagogastroduodenoscopy. ANESTHESIA: Gen. local anesthetic ESTIMATED BLOOD LOSS: 5 mL SPECIMENS REMOVED: Sleeve gastrectomy COMPLICATIONS: None. FINDINGS: 1. Negative intraoperative esophagogastrojejunoscopy leak test. 2. No hepatomegaly and no large hiatus hernia. 3. Total of 6 staplers used including 2 - 60 mm green robot denisse and 4 - 60 mm blue robot loads used to create the gastric sleeve. 4. Sleeve gastrectomy, 27 x 6 cm INDICATIONS: The patient is a 47-year-old female who comes with lifelong morbid obesity. She is looking into the sleeve gastrectomy. She has comorbidities including hypertensive heart disease, osteoarthritis of the knees and back All surgical options for morbid obesity had been described using the [place] [facility]ariat[facility] collaborative comorbidity resolution including complication risk score. A second-generation bariatric consent form was described in detail including the possibility of protein malnutrition, leaks, gastric stricture, venous thrombosis, gastroesophageal reflux disease, need for further surgery for which she demonstrated understanding. Benefits and risks of the procedure were described at length. Informed consent was obtained. DESCRIPTION: The patient was brought into the operating room theater. Preoperatively she had received Lovenox subcutaneously for DVT prophylaxis. Additionally she had Peridex oral solution as an oral decontaminant. After general induction, the abdomen was prepped and draped in standard sterile fashion. An Ioban draping was placed along the abdomen. A robotic da Nina Xi system was prepped and primed. At 15 cm from the xiphoid, proposed port sites were marked with indelible marker along the anterior axillary line bilaterally, mid axillary line bilaterally with each ports were marked 10 to 15 cm from each other. The robotic stapler port was marked for the right midclavicular line. A 5 mm 0 degrees laparoscopic trocar entry was performed along the left upper quadrant. The abdomen was insufflated to 15 mmHg pressure was tolerated well. Diagnostic laparoscopy demonstrated no injury to bowel, viscera, or mesentery. No evidence of large hiatus hernia was identified. The liver edge was sharp consistent with 2 week low-carb high-protein diet. A 8 mm port was placed along the left upper abdominal wall after exchanging the 5 mm port. A separate 8 mm port was placed along the left lateral abdominal wal l. Please note that the ports were placed at least 20 cm away from the target anatomy. Care was taken to check each robotic arms were safely away from collision with the bed or the patient. At the epigastrium, a medium sized Barney liver retractor was placed under direct visualization with the Iron Gravity Prospector placed under the right shoulder of the patient. Next, 12-mm robot stapler port was placed along the right upper quadrant. The camera 8-mm port was maintained along the epigastrium. The patient was repositioned in reverse Trendelenburg position at 21-degrees after lowering the bed. The robot was docked along the left side of the patient. Using a grasper for arm 4, a vessel sealer for arm 3, including grasper for arm 1, the robotic system was docked and primed as described. Instruments were interchanged by the career services assistant for stapler loads. The camera was placed at 30- degrees down. I had sat at the console. The pylorus was identified and 6 cm proximally along the greater curvature of the stomach, the short gastrics were mobilized upwards to the angle of His using a vessel sealer. Hemostasis was excellent during this portion of the procedure. Next, the upper pole of the stomach was adherent to the left philip, which was gently dissected free using atraumatic grasper. I went to the head of the bed and placed 40-Tongan blunt bougie into the stomach. The bougie was readjusted by the nurse jai alai player. Robotic stapler green load 60 mm 2 followed by blue 60 mm x 4 loads were used to create the sleeve. Initial firing was across the antrum of the stomach towards the angle of His. The staple line was linear without corkscrewing. The space from the angularis incisura of the sleeve was approximately 4 cm. I then went to the head of the bed to perform the intraoperative esophagogastroduodenoscopy leak test. The bougie was withdrawn. The upper pole of the stomach was bathed using normal saline solution. The scope was withdrawn with careful inspection along the staple line for which no leaks were found along the entire length. Additionally,the sleeve was completely hemostatic without any encroachment along the angularis incisura. Its topology was a soft "J". No stricture was encountered upon placement of the scope. The GI tract was desufflated. The patient tolerated this portion of the procedure well. The scope was completely withdrawn. The robot was undocked. I then rescrubbed into case, whereby the irrigation fluid was aspirated from the abdominal cavity. Tisseel fibrin sealant was placed along the entire staple length. Once dried the Barney liver retractor was removed. Attention was now brought to removal of the specimen. The distal end of the sleeve gastrectomy specimen was brought out through the 12 mm port at the left upper quadrant. The specimen was gently removed en total. No contamination had occurred during this process. All instruments and pneumoperitoneum including irrigation fluid was removed from the abdominal cavity. The 12 mm port site was closed using 0-Vicryl and Christian Schwartz and irrigated with diluted hydrogen peroxide. The final incisions were closed using subcuticular interrupted suture of 4-0 Monocryl. Exofin was applied to the skin once the skin had been cleansed. OptiFoam dressing was placed along the stomach extraction site. The sleeve specimen was measured and checked also for leaks which none were found. At the end of the procedure, needle, sponge, and instrument count was verified correct by the audiology technician. The patient was taken to the postanesthesia care unit in stable condition. She had tolerated the procedure well. Intraoperative films and findings were reviewed with the patient's family.
[2022-12-13] MEDS: HYDROmorphone 0.5 MG/0.5 ML SYRINGE IVP PRN ×2 (16:32→17:15)
[2022-12-13] MEDS: KETOROLAC 15 MG/ML 1 ML VIAL IVP SCH ×2 (17:42→23:48)
[2022-12-13] MEDS: ACETAMINOPHEN IV (For NPO) 1,000 MG in EMPTY BAG 1 BAG IVPB SCH ×2 (18:18→23:17)
[2022-12-13] MEDS: 0.9% NACL WITH KCL 20 MEQ/L 1,000 ML IV SCH ×2 (18:18→23:49)
[2022-12-13] MEDS: ONDANSETRON 4 MG/2 ML VIAL IVP SCH ×2 (18:18→23:48)
[2022-12-13] MEDS: MIDODRINE 5 MG TAB PO SCH (18:19)
[2022-12-13] MEDS: SIMETHICONE 40 MG/0.6 ML DROPS 2,000 MG/30 ML BOTTLE PO SCH ×2 (18:29→21:54)
[2022-12-13] MEDS ORDERED: SODIUM CHLORIDE 0.9% 2,000 ML IV ONE (19:27)
[2022-12-13] MEDS: DEXAMETHASONE SOD PHOSPHATE 4 MG/ML 1 ML VIAL IVP SCH ×2 (19:54→23:48)
[2022-12-13] MEDS: PANTOPRAZOLE 40 MG/10 ML VIAL IV SCH (19:56)
[2022-12-13] MEDS ORDERED: ALBUTEROL HFA INHALER INHALATION SCH ×2 (20:00)
[2022-12-13] MEDS ORDERED: ALBUTEROL NEBULIZED 2.5 MG/3 ML INHALATION SCH (20:00)
[2022-12-13] MEDS: ALBUTEROL HFA INHALER INHALATION SCH (20:12)
[2022-12-13] MEDS: fentaNYL PCA 500 MCG/50 ML BAG IV SCH (20:47)
[2022-12-13] MEDS ORDERED: DEXAMETHASONE SOD PHOSPHATE 10 MG/ML 1 ML VIAL IVP ONE (21:00)
[2022-12-14] MEDS: KETOROLAC 15 MG/ML 1 ML VIAL IVP SCH ×3 (05:47→17:03)
[2022-12-14] MEDS: DEXAMETHASONE SOD PHOSPHATE 4 MG/ML 1 ML VIAL IVP SCH ×3 (05:47→17:04)
[2022-12-14] MEDS: ACETAMINOPHEN IV (For NPO) 1,000 MG in EMPTY BAG 1 BAG IVPB SCH ×3 (05:49→17:03)
[2022-12-14] MEDS: SIMETHICONE 40 MG/0.6 ML DROPS 2,000 MG/30 ML BOTTLE PO SCH ×5 (05:49→20:22)
[2022-12-14] MEDS: ONDANSETRON 4 MG/2 ML VIAL IVP SCH ×3 (05:49→17:04)
[2022-12-14] MEDS: 0.9% NACL WITH KCL 20 MEQ/L 1,000 ML IV SCH (05:50)
[2022-12-14] MEDS: LACTATED RINGERS 1,000 ML IV SCH (06:24)
[2022-12-14] MEDS: MIDODRINE 5 MG TAB PO SCH ×2 (07:26→17:00)
[2022-12-14] MEDS: PANTOPRAZOLE 40 MG/10 ML VIAL IV SCH ×2 (07:27→20:22)
[2022-12-14] MEDS: LEVOTHYROXINE 125 MCG TAB PO SCH (07:27)
[2022-12-14] MEDS: METOPROLOL TARTRATE 12.5 MG TAB PO SCH (07:27)
[2022-12-14] MEDS: ENOXAPARIN 40 MG/0.4 ML SYRINGE SQ SCH (07:28)
[2022-12-14] MEDS ORDERED: 0.9% NACL WITH KCL 20 MEQ/L 1,000 ML IV SCH (08:00)
[2022-12-14 09:13] LABS: Basophils # (A) 0.01 X 10*3/uL (0.00-0.10); Basophils % (A) 0.1 %; Eosinophils # (A) 0 X 10*3/uL (0.04-0.35); Eosinophils % (A) 0 %; HGB 13.9 g/dL (12.0-15.0); Immature Grans, Automated 0.4 %; Lymphocytes # (A) 0.94 X 10*3/uL (0.90-5.00); Lymphocytes % (A) 7.6 %; MCHC 32.3 g/dL (32.0-37.0); MCV 92.7 fL (80.0-97.0); Monocytes # (A) 0.11 X 10*3/uL (0.20-1.00); Monocytes % (A) 0.9 %; NRBC Per 100 WBC 0 /100 WBCS (0.0-0.0); Neutrophils # (A) 11.18 X 10*3/uL (1.80-7.70); Platelet Count 296 X 10*3/uL (140-440); RBC 4.64 X 10*6/uL (4.10-5.20); RDW 12.9 % (11.5-14.5); WBC 12.29 X 10*3/uL (4.50-10.00)
[2022-12-14] MEDS: ALBUTEROL HFA INHALER INHALATION SCH ×4 (09:23→20:35)
[2022-12-14 10:13] LABS: African American GFR (CKD) 102.5 (60.0-200.0); Anion Gap 16.1 mmol/L (10.00-18.00); Blood Urea Nitrogen 12.6 mg/dL (9.0-27.0); Calcium 8.3 mg/dL (8.7-10.3); Carbon Dioxide 15.9 mmol/L (20.0-27.5); Non-African American GFR(CKD) 88.4 (60.0-200.0); Phosphorus 4.1 mg/dL (2.4-5.1); Potassium 5.1 mmol/L (3.5-5.5)
[2022-12-14 10:38] LABS: Magnesium 2.1 mg/dL (1.5-2.4)
--- NOTE | 2022-12-14 12:03 | FL ---
EXAMINATION TYPE: FL UGI DATE OF EXAM: 12/14/2022 COMPARISON: CT abdomen pelvis 05/28/2022 HISTORY: Postoperative gastric sleeve TECHNIQUE: A single contrast UGI study is performed. Isovue-370 utilized. A total of 42 seconds of fluoroscopic time was utilized during procedure and 36 images obtained. FINDINGS: The esophagus shows normal motility and emptying into the stomach. No evidence of hiatal hernia or s tricture noted. Postsurgical changes from gastric sleeve. No evidence for obstruction or leak. Spontaneous gastroesop hageal reflux demonstrated. IMPRESSION: 1. Postsurgical changes from gastric sleeve without evidence for obstruction or leak. 2. Gastroesophageal reflux.
[2022-12-14 14:12] VITALS: BMI 36.6
--- NOTE | 2022-12-14 14:41 | P.PN ---
Subjective Progress Note Date: 12/14/22 CHIEF COMPLAINT: Morbid obesity HISTORY OF PRESENT ILLNESS: Patient's postop day #1 status post robotic-assisted laparoscopic sleeve gastrectomy. Patient is complaining that the liquids sit heavy and she has pain after drinking. She does report occasional nausea. No vomiting. She did have a small amount of flatus. She has been up and ambulating. Upper GI shows no evidence of leak or obstruction. Afebrile. WBC 11.2 up to 12.29 Hgb 13.9 platelets 296 sodium 137 potassium is 5.1 and creatinine 0.8 and he seemed to 0.1 phosphorus 4.1 PHYSICAL EXAM: VITAL SIGNS: Reviewed GENERAL: Well-developed in no acute distress. HEENT: No sclera icterus. Extraocular movements grossly intact. Moist buccal mucosa. Head is atraumatic, normocephalic. Hears conversational speech. No nasal drainage. NECK: Supple without lymphadenopathy. CHEST: Non-labored respirations and equal bilateral excursions. CARDIOVASCULAR: Palpable 2+ radial pulses. ABDOMEN: Soft. Nondistended. Abdominal binder in place MUSCULOSKELETAL: No clubbing or cyanosis. NEUROLOGIC: No focal or lateralizing signs. Cranial nerves II through XII grossly intact. PSYCH: Appropriate affect. Alert and oriented to person, place and time. SKIN: Well perfused. Good skin turgor. ASSESSMENT: 1. Morbid obesity due to excess calories 2. Body mass index of 37.1 3. Osteoarthritis of the knees. 4. Osteoarthritis of the lower back. 5. Hypertensive heart disease. 6. Depressive disorder 7. Generalized anxiety disorder 8. Postoperative nausea or vomiting 9. Pre-existing persistent leukocytosis PLAN: -Continue Bariatric clear liquid diet -Encouraged patient to take smaller sips over a longer period of time -Continue IV fluids. We'll remove potassium from IV fluids due to elevated potassium -Continue IV Decadron -Continue pain management -Encouraged patient ambulates -Encouraged patient to use incentive spirometer -GI prophylaxis Protonix and DVT prophylaxis Lovenox Physician Call Center Representative note has been reviewed by physician. Signing provider agrees with the documented findings, assessment, and plan of care. Objective - Vital Signs Vital signs: Vital Signs Temp 97.9 F 12/14/22 13:17 Pulse 58 L 12/14/22 13:17 Resp 16 12/14/22 13:17 BP 99/62 12/14/22 13:17 Pulse Ox 96 12/14/22 13:17 FiO2 Intake & Output 12/13/22 12/14/22 12/14/22 18:59 06:59 18:59 Intake Total 1600 Output Total 5 Balance 1595 Weight 102.9 kg 102.9 kg Intake: IV 1600 Output: Estimated Blood Loss 5 Other: # Voids 1 1 - Labs CBC & Chem 7: 12/14/22 04:48 12/14/22 04:48 Labs: Abnormal Lab Results - Last 24 Hours (Table) 12/14/22 12/14/22 Range/Units 04:48 04:48 WBC 12.29 H (4.50-10.00) X 10*3/uL Immature Gran # 0.05 H (0.00-0.04) X 10*3/uL Neutrophils # 11.18 H (1.80-7.70) X 10*3/uL Monocytes # 0.11 L (0.20-1.00) X 10*3/uL Eosinophils # 0 L (0.04-0.35) X 10*3/uL Carbon Dioxide 15.9 L (20.0-27.5) mmol/L Calcium 8.3 L (8.7-10.3) mg/dL
[2022-12-14] MEDS: SODIUM CHLORIDE 0.9% 1,000 ML IV SCH (14:52)
[2022-12-14] MEDS: fentaNYL PCA 500 MCG/50 ML BAG IV SCH (14:53)
--- NOTE | 2022-12-14 15:17 | P.DS ---
Providers Date of admission: 12/13/22 13:04 Expected date of discharge: 12/14/22 Attending physician: Rosa Edwards Consults: 12/13/22 09:36 Consult Physician Routine Consulting Provider: [facility] Consult Reason/Comments: Regional abdominal block Do you want consulting provider notified?: Yes Primary care physician: Davon Rouse MD Hospital Course: Discharge diagnosis 1. Morbid obesity due to excess calories 2. Body mass index of 37.1 3. Osteoarthritis of the knees. 4. Osteoarthritis of the lower back. 5. Hypertensive heart disease. 6. Depressive disorder 7. Generalized anxiety disorder 8. Postoperative nausea or vomiting 9. Pre-existing persistent leukocytosis Hospital course The patient is a 47-year-old female who comes with lifelong morbid obesity. Patient is status post robotic-assisted laparoscopic sleeve gastrectomy. She tolerated surgery well. She does report that the liquids sit heavy after drinking. But she is able to tolerate the liquids. Upper GI shows no evidence of leak or obstruction. Did reveal GERD. Patient is having flatus. She has been up and ambulating. Her pain is controlled. She is afebrile. Patient educated to take smaller sips of liquids and spread out over a longer time frame. Continue antiacid medication and Mylicon gas drops. She is stable for discharge. 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 Signing provider agrees with the documented findings, assessment, and plan of care. Patient Condition at Discharge: Stable Plan - Discharge Summary Discharge Rx Participant: No New Discharge Prescriptions: New bisacodyL [Dulcolax] 5 mg PO DAILY PRN #10 tab PRN Reason: Constipation Simethicone 40 mg/0.6 ml Drops [Mylicon Drops] 40 mg PO PCHS PRN #30 ml PRN Reason: Gas Omeprazole [PriLOSEC] 40 mg PO DAILY #30 cap Ondansetron Odt [Zofran Odt] 4 mg PO Q8HR PRN #9 tab PRN Reason: Nausea Acetaminophen Tab [Tylenol] 1,000 mg PO Q6HR PRN #30 tablet PRN Reason: Pain Continue Midodrine HCl [ProAmantine] 2.5 mg PO BID Levothyroxine Sodium [Synthroid] 125 mcg PO DAILY lamoTRIgine 150 mg PO DAILY Dextroamphetamine/Amphetamine [Dextroamp-Amphetamin 15 mg Tab] 60 mg PO DAILY Albuterol Sulfate [Ventolin HFA] 2 puff INHALATION Q4H PRN PRN Reason: Wheezing Metoprolol Tartrate [Lopressor] 12.5 mg PO DAILY Discontinued Ibuprofen 800 mg PO Q8H PRN PRN Reason: Pain No Action Ondansetron Odt [Zofran ODT] 4 mg PO Q8HR PRN #10 tab PRN Reason: Nausea Discharge Medication List Ondansetron Odt [Zofran ODT] 4 mg PO Q8HR PRN #10 tab 05/28/22 [Rx] Albuterol Sulfate [Ventolin HFA] 2 puff INHALATION Q4H PRN 09/08/22 [History] Dextroamphetamine/Amphetamine [Dextroamp-Amphetamin 15 mg Tab] 60 mg PO DAILY 09/08/22 [History] Midodrine HCl [ProAmantine] 2.5 mg PO BID 09/08/22 [History] Levothyroxine Sodium [Synthroid] 125 mcg PO DAILY 09/10/22 [History] Metoprolol Tartrate [Lopressor] 12.5 mg PO DAILY 09/10/22 [History] lamoTRIgine 150 mg PO DAILY 09/10/22 [History] Acetaminophen Tab [Tylenol] 1,000 mg PO Q6HR PRN #30 tablet 12/14/22 [Rx] Omeprazole [PriLOSEC] 40 mg PO DAILY #30 cap 12/14/22 [Rx] Ondansetron Odt [Zofran Odt] 4 mg PO Q8HR PRN #9 tab 12/14/22 [Rx] Simethicone 40 mg/0.6 ml Drops [Mylicon Drops] 40 mg PO PCHS PRN #30 ml 12/14/22 [Rx] bisacodyL [Dulcolax] 5 mg PO DAILY PRN #10 tab 12/14/22 [Rx] [facility]ment(s[facility] [place] [facility] [place] 12[facility]17/22 9:00 am Patient Instructions/Handouts: Nutrition after Bariatric Surgery (DC), Nutrition after Bariatric Surgery (GEN), Laparoscopic Sleeve Gastrectomy (DC), Laparoscopic Sleeve Gastrectomy (GEN) Activity/Diet/Wound Care/Special Instructions: Liquid diet only for 2 weeks No lifting over 4 pounds in 4 weeks May Shower. No soaking in bath tubs for 2 weeks Please notify your surgeon if you develop nausea and vomiting including new onset of abdominal pain. Continue to use incentive spirometry to prevent pneumonias. Please continue to ambulate at home to prevent blood clots in legs. Follow-up at the bariatric center. May shower. Dressings to be discontinued by surgeon in the office. Drink 64 oz of fluid daily. Start protein shakes on . Notify bariatric center for temp over 101.0, increased pain, drainage from incisions. No straws or carbonated beverages. Liquid diet only. Sugar content should be less than 6 g to avoid dumping syndrome. Take MOM for constipation. CRUSH, OPEN, OR CUT TABLETS LARGER THAN A SIZE OF A TIC TAC Discharge Disposition: HOME SELF-CARE
[2022-12-14] MEDS: HYOSCYAMINE ORAL DROPS 1.875 MG/15 ML BOTTLE PO SCH (18:59)
--- NOTE | 2022-12-14 20:35 | P.PN ---
Progress Note - Text Progress Note Date: 12/14/22 She reports persistent epigastric pain and pressure despite protonix and simethicone. Recommend Levsin and scheduled increased dose of simethicone due to severe epigastric pain. Recommend continued hospitalization.
[2022-12-15] MEDS: KETOROLAC 15 MG/ML 1 ML VIAL IVP SCH ×2 (00:18→06:17)
[2022-12-15] MEDS: DEXAMETHASONE SOD PHOSPHATE 4 MG/ML 1 ML VIAL IVP SCH ×2 (00:19→06:17)
[2022-12-15] MEDS: ACETAMINOPHEN IV (For NPO) 1,000 MG in EMPTY BAG 1 BAG IVPB SCH ×2 (00:19→06:18)
[2022-12-15] MEDS: HYOSCYAMINE ORAL DROPS 1.875 MG/15 ML BOTTLE PO SCH ×2 (00:19→06:22)
[2022-12-15] MEDS: ONDANSETRON 4 MG/2 ML VIAL IVP SCH ×2 (00:19→06:17)
[2022-12-15] MEDS: SODIUM CHLORIDE 0.9% 1,000 ML IV SCH (00:24)
[2022-12-15 07:31] VITALS: BP 97/59; PULSE 55; RESP 16; TEMP 98.1
[2022-12-15] MEDS: ALBUTEROL HFA INHALER INHALATION SCH (07:45)
[2022-12-15] MEDS ORDERED: bisacodyL 5 MG TABLET.DR PO PRN (08:00)
[2022-12-15] MEDS: SIMETHICONE 40 MG/0.6 ML DROPS 2,000 MG/30 ML BOTTLE PO SCH (08:42)
[2022-12-15] MEDS: METOPROLOL TARTRATE 12.5 MG TAB PO SCH (08:43)
[2022-12-15] MEDS: ENOXAPARIN 40 MG/0.4 ML SYRINGE SQ SCH (08:43)
[2022-12-15] MEDS: LEVOTHYROXINE 125 MCG TAB PO SCH (08:43)
[2022-12-15] MEDS: PANTOPRAZOLE 40 MG/10 ML VIAL IV SCH (08:43)
[2022-12-15] MEDS: MIDODRINE 5 MG TAB PO SCH (08:43)
--- NOTE | 2022-12-15 10:31 | P.DS ---
Providers Date of admission: 12/13/22 13:04 Expected date of discharge: 12/15/22 Attending physician: Rosa Edwards Consults: 12/13/22 09:36 Consult Physician Routine Consulting Provider: [facility] Consult Reason/Comments: Regional abdominal block Do you want consulting provider notified?: Yes Primary care physician: Davon Rouse MD Hospital Course: Patient clinically doing better. Expected postoperative symptoms reviewed. Patient stable for discharge. Patient Condition at Discharge: Stable Plan - Discharge Summary Discharge Rx Participant: Yes New Discharge Prescriptions: New bisacodyL [Dulcolax] 5 mg PO DAILY PRN #10 tab PRN Reason: Constipation Simethicone 40 mg/0.6 ml Drops [Mylicon Drops] 40 mg PO PCHS PRN #30 ml PRN Reason: Gas Omeprazole [PriLOSEC] 40 mg PO DAILY #30 cap Hyoscyamine Oral Drops [Levsin Drops] 0.125 mg PO Q6HR ml Ondansetron Odt [Zofran Odt] 4 mg PO Q8HR PRN #9 tab PRN Reason: Nausea Acetaminophen Tab [Tylenol] 1,000 mg PO Q6HR PRN #30 tablet PRN Reason: Pain Simethicone 40 mg/0.6 ml Drops [Mylicon Drops] 80 mg PO QID ml Continue Midodrine HCl [ProAmantine] 2.5 mg PO BID Levothyroxine Sodium [Synthroid] 125 mcg PO DAILY lamoTRIgine 150 mg PO DAILY Ondansetron Odt [Zofran ODT] 4 mg PO Q8HR PRN #10 tab PRN Reason: Nausea Dextroamphetamine/Amphetamine [Dextroamp-Amphetamin 15 mg Tab] 60 mg PO DAILY Albuterol Sulfate [Ventolin HFA] 2 puff INHALATION Q4H PRN PRN Reason: Wheezing Metoprolol Tartrate [Lopressor] 12.5 mg PO DAILY Discontinued Ibuprofen 800 mg PO Q8H PRN PRN Reason: Pain Discharge Medication List Ondansetron Odt [Zofran ODT] 4 mg PO Q8HR PRN #10 tab 05/28/22 [Rx] Albuterol Sulfate [Ventolin HFA] 2 puff INHALATION Q4H PRN 09/08/22 [History] Dextroamphetamine/Amphetamine [Dextroamp-Amphetamin 15 mg Tab] 60 mg PO DAILY 09/08/22 [History] Midodrine HCl [ProAmantine] 2.5 mg PO BID 09/08/22 [History] Levothyroxine Sodium [Synthroid] 125 mcg PO DAILY 09/10/22 [History] Metoprolol Tartrate [Lopressor] 12.5 mg PO DAILY 09/10/22 [History] lamoTRIgine 150 mg PO DAILY 09/10/22 [History] Acetaminophen Tab [Tylenol] 1,000 mg PO Q6HR PRN #30 tablet 12/14/22 [Rx] Omeprazole [PriLOSEC] 40 mg PO DAILY #30 cap 12/14/22 [Rx] Ondansetron Odt [Zofran Odt] 4 mg PO Q8HR PRN #9 tab 12/14/22 [Rx] Simethicone 40 mg/0.6 ml Drops [Mylicon Drops] 40 mg PO PCHS PRN #30 ml 12/14/22 [Rx] bisacodyL [Dulcolax] 5 mg PO DAILY PRN #10 tab 12/14/22 [Rx] Hyoscyamine Oral Drops [Levsin Drops] 0.125 mg PO Q6HR ml 12/15/22 [Rx] Simethicone 40 mg/0.6 ml Drops [Mylicon Drops] 80 mg PO QID ml 12/15/22 [Rx] Follow up Appointment(s[facility] [place] [facility] - 12/17/22 9:00 am Patient Instructions/Handouts: Nutrition after Bariatric Surgery (DC), Laparoscopic Sleeve Gastrectomy (DC) Activity/Diet/Wound Care/Special Instructions: Liquid diet only for 2 weeks until December 27 May Shower. No soaking in bath tubs 2 weeks until December 27 Continue to use incentive spirometry to prevent pneumonias. Please continue to ambulate at home to prevent blood clots in legs. Please notify your surgeon if you develop nausea and vomiting including new onset of abdominal pain. No lifting over 4 pounds in 4 weeks, January 13 Drink 64 oz of fluid daily. Start protein shakes on . Notify bariatric center for temp over 101.0, increased pain, drainage from incisions. No straws or carbonated beverages. Liquid diet only. Sugar content should be less than 6 g to avoid dumping syndrome. Take MOM for constipation. CRUSH, OPEN, OR CUT TABLETS LARGER THAN A SIZE OF A TIC TAC Discharge Disposition: HOME SELF-CARE
== END 2022-12-15 11:00 | disposition home or self-care (01) | DRG 621 ==
LOC: 2ORMAIN 13:04 → 4SSUR 17:08
PROVIDERS: ADMIT Surgery Plastic and Reconstructive Surgery; ATTEND Surgery Plastic and Reconstructive Surgery
PROC: 8E0W4CZ Robotic Assisted Procedure of Trunk Region, Percutaneous Endoscopic Approach (ICD-10-PCS; 2022-12-13)
PROC: 0DJ08ZZ Inspection of Upper Intestinal Tract, Via Natural or Artificial Opening Endoscopic (ICD-10-PCS; 2022-12-13)
PROC: 0DB64Z3 Excision of Stomach, Percutaneous Endoscopic Approach, Vertical (ICD-10-PCS; principal; 2022-12-13 14:45)
DX: E66.01 Morbid (severe) obesity due to excess calories (principal); Z68.41 Body mass index [BMI] 40.0-44.9, adult; M16.0 Bilateral primary osteoarthritis of hip; M17.0 Bilateral primary osteoarthritis of knee; F32.A Depression, unspecified; F41.1 Generalized anxiety disorder; I10 Essential (primary) hypertension; Z68.37 Body mass index [BMI] 37.0-37.9, adult; D72.829 Elevated white blood cell count, unspecified; R11.2 Nausea with vomiting, unspecified; J45.909 Unspecified asthma, uncomplicated; K21.9 Gastro-esophageal reflux disease without esophagitis; M47.9 Spondylosis, unspecified; Z79.890 Hormone replacement therapy; Z79.899 Other long term (current) drug therapy; Z87.891 Personal history of nicotine dependence; Z87.442 Personal history of urinary calculi; Z91.041 Radiographic dye allergy status; Z91.030 Bee allergy status; Z88.1 Allergy status to other antibiotic agents
CPT/HCPCS: 74240; 80051; 80053; 81025; 82310; 82565; 83735; 84100; 84520; 85025; 86850; 86900; 86901; 88307; 94640; 94760

== ENCOUNTER → 2022-12-17 | Outpatient (CLI) | payer MEDICARE, OTHER ==
[2022-12-17 09:15] VITALS: BP 129/79; PULSE 65; TEMP 97.9; BMI 38.2
--- NOTE | 2022-12-17 12:43 | P.BASOAP ---
Subjective Progress Note Date: 12/17/22 Patient reports chronic dehydration with dark urine and moderately decreased urine output and oral intake. Findings consistent with dehydration. Recommend IV fluid hydration. Incisions clean intact without infection. Recommend IV fluids today. Possible repeat IV fluid hydration Tuesday. Dietary guidelines reviewed with start her protein shakes. Objective - Vital Signs Vital signs: Vital Signs Temp 97.9 F 12/17/22 09:09 Pulse 65 12/17/22 09:09 Resp BP 129/79 12/17/22 09:09 Pulse Ox FiO2 Intake & Output 12/16/22 12/17/22 12/17/22 18:59 06:59 18:59 Weight 105.233 kg Assessment/Plan Plan: Date: 12/17/22 Initial Weight: 102.965 kg Initial BMI: 37.5 Current Weight: 105.233 kg Current BMI: 38.2 Type of Surgery: Total Volume in Band: Previous Volume: Volume Removed: Volume Added: Band Size:
== END ==
LOC: BARWHC3 08:58
PROVIDERS: ATTEND Surgery Plastic and Reconstructive Surgery
DX: E66.01 Morbid (severe) obesity due to excess calories (principal); Z71.3 Dietary counseling and surveillance; Z68.38 Body mass index [BMI] 38.0-38.9, adult; Z91.048 Other nonmedicinal substance allergy status; Z88.1 Allergy status to other antibiotic agents; Z91.02 Food additives allergy status
CPT/HCPCS: 99211

== ENCOUNTER → 2022-12-22 | Outpatient (CLI) | payer MEDICARE, OTHER ==
[2022-12-22 14:47] VITALS: BP 112/75; PULSE 86; TEMP 98.4; BMI 36.3
--- NOTE | 2022-12-22 15:13 | P.BASOAP ---
Subjective Progress Note Date: 12/22/22 She is having dehydration. She has epigastric pain. She has dehydration. She has omeprazole bid now and reports some improvement. Recommend gas drops. She reports pre-existing gallbladder problems. Recommend US and HIDA Objective - Vital Signs Vital signs: Vital Signs Temp 98.4 F 12/22/22 14:42 Pulse 86 12/22/22 14:42 Resp BP 112/75 12/22/22 14:42 Pulse Ox FiO2 Intake & Output 12/21/22 12/22/22 12/22/22 18:59 06:59 18:59 Weight 99.79 kg Assessment/Plan Plan: Date: 12/22/22 Initial Weight: 102.965 kg Initial BMI: 37.5 Current Weight: 99.79 kg Current BMI: 36.3 Type of Surgery: Total Volume in Band: Previous Volume: Volume Removed: Volume Added: Band Size:
== END ==
LOC: BARWHC3 13:34
PROVIDERS: ATTEND Surgery Plastic and Reconstructive Surgery
DX: E66.01 Morbid (severe) obesity due to excess calories (principal); Z68.36 Body mass index [BMI] 36.0-36.9, adult; Z91.048 Other nonmedicinal substance allergy status; Z88.1 Allergy status to other antibiotic agents; Z91.030 Bee allergy status
CPT/HCPCS: 97802; G0463; 99211

== ENCOUNTER → 2022-12-24 | Outpatient (CLI) | payer MEDICARE, OTHER ==
[~2022-12-24] MED LIST changes: -CHLORHEXIDINE GLUCONATE 15 ML CUP MUCOUS MEM PRN; -DEXAMETHASONE SOD PHOSPHATE 4 MG/ML 1 ML VIAL IV ONE; -ENOXAPARIN 40 MG/0.4 ML SYRINGE SQ PRN; -LIDOCAINE 1% (10MG/ML) FOR IV START INTRADERMA PRN; -ONDANSETRON 4 MG/2 ML VIAL IVP PRN; -PANTOPRAZOLE 40 MG/10 ML VIAL IVP PRN; -SCOPOLAMINE 1 MG/72 HR PATCH TRANSDERM ONE; +SODIUM CHLORIDE 0.9% 2,000 ML IV SCH; +SODIUM CHLORIDE 0.9% 500 ML 500 ML in EMPTY BAG 1 BAG IV PRN
[2022-12-24 10:49] VITALS: BP 114/78; PULSE 83; RESP 15; TEMP 97.5
== END ==
LOC: PROCWHC3 10:43
PROVIDERS: ATTEND Surgery Plastic and Reconstructive Surgery
DX: E86.0 Dehydration (principal); Z91.048 Other nonmedicinal substance allergy status; Z88.1 Allergy status to other antibiotic agents; Z88.8 Allergy status to other drugs, medicaments and biological substances; Z91.02 Food additives allergy status
CPT/HCPCS: 96360; 96361

== ENCOUNTER → 2022-12-28 | Outpatient (CLI) | payer MEDICARE, OTHER ==
[~2022-12-28] MED LIST changes: -SODIUM CHLORIDE 0.9% 2,000 ML IV SCH
[2022-12-28] MEDS: SODIUM CHLORIDE 0.9% 1,000 ML IV SCH ×2 (08:15→09:15)
[2022-12-28 08:22] VITALS: BP 97/62; PULSE 80; RESP 16; TEMP 98.1
== END ==
LOC: PROCWHC3 08:02
PROVIDERS: ATTEND Surgery Plastic and Reconstructive Surgery
DX: E86.0 Dehydration (principal); Z91.048 Other nonmedicinal substance allergy status; Z88.1 Allergy status to other antibiotic agents; Z91.02 Food additives allergy status
CPT/HCPCS: 96360; 96361

== ENCOUNTER → 2022-12-31 | Outpatient (CLI) | payer MEDICARE, OTHER ==
[2022-12-31 09:00] VITALS: BP 106/75; PULSE 87; RESP 16; TEMP 98.1
[2022-12-31] MEDS: SODIUM CHLORIDE 0.9% 1,000 ML IV SCH ×2 (09:01→10:03)
== END ==
LOC: PROCWHC3 08:35
PROVIDERS: ATTEND Surgery Plastic and Reconstructive Surgery
DX: E86.0 Dehydration (principal); Z91.048 Other nonmedicinal substance allergy status; Z88.1 Allergy status to other antibiotic agents; Z91.02 Food additives allergy status
CPT/HCPCS: 96360; 96361

== ENCOUNTER → 2022-12-31 | Outpatient (CLI) | payer MEDICARE, OTHER ==
[2022-12-31 12:47] LABS: Partial Thromboplastin Time 24.2 sec (22.0-30.0); Prothrombin Time 10.2 sec (9.0-12.0)
[2022-12-31 18:53] LABS: HCT 44.1 % (37.2-46.3); HGB 14.3 g/dL (12.0-15.0); MCH 30.3 pg (27.0-32.0); MCHC 32.4 g/dL (32.0-37.0); MCV 93.4 fL (80.0-97.0); Mean Platelet Volume 9.8 fL (9.5-12.2); NRBC Per 100 WBC 0 /100 WBCS (0.0-0.0); Platelet Count 336 X 10*3/uL (140-440); RBC 4.72 X 10*6/uL (4.10-5.20); RDW 13.4 % (11.5-14.5); WBC 10.65 X 10*3/uL (4.50-10.00)
[2022-12-31 19:40] LABS: % Iron Saturation 27.04 (12.00-45.00); ALT 20 U/L (8-44); AST 13 U/L (13-35); African American GFR (CKD) 95.6 (60.0-200.0); Albumin 4.2 g/dL (3.8-4.9); Albumin/Globulin Ratio 1.93 (1.60-3.17); Alkaline Phosphatase 67 U/L (41-126); BUN/Creat Ratio 20.19 Ratio (12.00-20.00); Blood Urea Nitrogen 17.1 mg/dL (9.0-27.0); Calcium 8.7 mg/dL (8.7-10.3); Carbon Dioxide 22.7 mmol/L (20.0-27.5); Chloride 110 mmol/L (96-109); Ferritin 76.5 ng/mL (10.0-291.0); Globulin 2.2 g/dL (1.6-3.3); Glucose 89 mg/dL (70-110); Iron 80 ug/dL (50-170); Magnesium 2.1 mg/dL (1.5-2.4); Non-African American GFR(CKD) 82.5 (60.0-200.0); Phosphorus 3.6 mg/dL (2.4-5.1); Potassium 4.5 mmol/L (3.5-5.5); Sodium 141 mmol/L (135-145); Total Iron Binding Capacity 294 ug/dL (228-460); Total Protein 6.4 g/dL (6.2-8.2)
[2022-12-31 19:42] LABS: LDL Cholesterol,Calculated 124.3 mg/dL (0.0-131.0); Prealbumin 24.8 mg/dL (18.0-42.0)
== END | disposition home or self-care (01) ==
LOC: LABWHC1 11:10
PROVIDERS: ATTEND Surgery Plastic and Reconstructive Surgery
DX: E66.01 Morbid (severe) obesity due to excess calories (principal); E89.1 Postprocedural hypoinsulinemia; D50.8 Other iron deficiency anemias; K91.2 Postsurgical malabsorption, not elsewhere classified; E44.0 Moderate protein-calorie malnutrition; E44.1 Mild protein-calorie malnutrition; E45 Retarded development following protein-calorie malnutrition; E55.9 Vitamin D deficiency, unspecified; K74.1 Hepatic sclerosis; N19 Unspecified kidney failure; T56.894A Toxic effect of other metals, undetermined, initial encounter; K50.90 Crohn's disease, unspecified, without complications
CPT/HCPCS: 36415; 80053; 80061; 82306; 82525; 82607; 82728; 82746; 83540; 83550; 83735; 83970; 84100; 84134; 84255; 84425; 84443; 84590; 84630; 85027; 85610; 85730

== ENCOUNTER → 2023-01-03 | Outpatient (CLI) | payer MEDICARE, OTHER ==
--- NOTE | 2023-01-03 08:53 | US ---
EXAMINATION TYPE: US gallbladder DATE OF EXAM: 01/03/2023 COMPARISON: CT, Renal US CLINICAL HISTORY: R10.11 EPIGASTRIC PAIN. Epigastric and RUQ pain. Hx Chron's disease, recent bariatr ic surgery, diverticulitis. TECHNIQUE: Multiple sonographic images of the right upper quadrant are obtained. 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 Pancreas: Not well seen Liver: *Measures mildly prominent. Gallbladder: Appears anechoic. Evidence for sonographic Whiteside's sign: No CBD: Portions seen appear wnl Right Kidney: Complex cystic area seen: 1.8 x 1.6 x 1.6 cm. Mid inferior pole right kidney IMPRESSION: 1. 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 2. Mild hepatomegaly
== END | disposition home or self-care (01) ==
LOC: RADUSWWP 08:10
PROVIDERS: ATTEND Surgery Plastic and Reconstructive Surgery
DX: N28.1 Cyst of kidney, acquired (principal); R16.0 Hepatomegaly, not elsewhere classified; R10.13 Epigastric pain
CPT/HCPCS: 76705

== ENCOUNTER → 2023-01-04 | Outpatient (CLI) | payer MEDICARE, OTHER ==
--- NOTE | 2023-01-04 10:08 | NM ---
EXAMINATION TYPE: NM hepatobiliary w EF DATE OF EXAM: 01/04/2023 COMPARISON: NONE HISTORY: R10.13 TECHNIQUE: After the intravenous administration of 4.9 mCi Tc 99m Mebrofenin hepatobiliary scintigrap hy is performed. Immediate images post injection. FINDINGS: There is satisfactory initial accumulation of tracer by the liver. The gallbladder is visualized wit hin 24 minutes. The small bowel activity is noted within 16 minutes. At one hour 8 ounces of oral e nsure plus is given to mimic CCK and gallbladder ejection fraction is calculated at 87%. IMPRESSION: Elevated ejection fraction may reflect hypercontractile state
== END | disposition home or self-care (01) ==
LOC: RADNMMAIN 06:58
PROVIDERS: ATTEND Surgery Plastic and Reconstructive Surgery
DX: R10.13 Epigastric pain (principal)
CPT/HCPCS: 78226; A9537

== ENCOUNTER → 2023-01-26 | Outpatient (CLI) | payer MEDICARE, OTHER ==
[2023-01-26 15:44] VITALS: BP 114/73; PULSE 80; TEMP 98.1; BMI 34.4
--- NOTE | 2023-01-26 15:58 | P.BASOAP ---
Subjective Progress Note Date: 01/26/23 SHe has troubles with drinking liquids. She SHe needs sips to do okay. She has troubles with drinking and has constant dehydration. She had symptoms prior to sleeve. Recommend yogurts. She can tolerates soap and pureed. Chilis. REcommd labs. Objective - Vital Signs Vital signs: Vital Signs Temp 98.1 F 01/26/23 15:40 Pulse 80 01/26/23 15:40 Resp BP 114/73 01/26/23 15:40 Pulse Ox FiO2 Intake & Output 01/25/23 01/26/23 01/26/23 18:59 06:59 18:59 Weight 94.801 kg Assessment/Plan Plan: Date: 01/26/23 Initial Weight: 102.965 kg Initial BMI: 37.5 Current Weight: 94.801 kg Current BMI: 34.4 Type of Surgery: Total Volume in Band: Previous Volume: Volume Removed: Volume Added: Band Size:
[2023-01-26 17:40] LABS: INR 0.9 (<1.2); Partial Thromboplastin Time 24.2 sec (22.0-30.0); Prothrombin Time 9.6 sec (9.0-12.0)
[2023-01-27 01:15] LABS: HCT 44.6 % (37.2-46.3); HGB 14.5 g/dL (12.0-15.0); MCH 29.9 pg (27.0-32.0); MCHC 32.5 g/dL (32.0-37.0); Mean Platelet Volume 9.9 fL (9.5-12.2); NRBC Per 100 WBC 0 /100 WBCS (0.0-0.0); Platelet Count 328 X 10*3/uL (140-440); RBC 4.85 X 10*6/uL (4.10-5.20); RDW 13.7 % (11.5-14.5); WBC 9.24 X 10*3/uL (4.50-10.00)
[2023-01-27 03:59] LABS: % Iron Saturation 16.06 (12.00-45.00); ALT 11 U/L (8-44); AST 15 U/L (13-35); Albumin 4.6 g/dL (3.8-4.9); Alkaline Phosphatase 78 U/L (41-126); BUN/Creat Ratio 19.81 Ratio (12.00-20.00); Blood Urea Nitrogen 16.3 mg/dL (9.0-27.0); Calcium 9.1 mg/dL (8.7-10.3); Chloride 106 mmol/L (96-109); Ferritin 97.8 ng/mL (10.0-291.0); Globulin 2.2 g/dL (1.6-3.3); Glucose 87 mg/dL (70-110); Iron 46 ug/dL (50-170); Magnesium 2.4 mg/dL (1.5-2.4); Non-African American GFR(CKD) 85.4 (60.0-200.0); Phosphorus 3.5 mg/dL (2.4-5.1); Potassium 4.5 mmol/L (3.5-5.5); Sodium 142 mmol/L (135-145); Total Iron Binding Capacity 287 ug/dL (228-460); Total Protein 6.8 g/dL (6.2-8.2)
[2023-01-27 04:42] LABS: Chol/HDL Ratio 3.54 Ratio; LDL Cholesterol,Calculated 117.2 mg/dL (0.0-131.0); Prealbumin 23.3 mg/dL (18.0-42.0); VLDL Calculation 19.82 mg/dL (5.00-40.00)
[2023-01-28 11:50] LABS: Vitamin A 53 ug/dL (38-106)
== END ==
LOC: BARWHC3 14:33
PROVIDERS: ATTEND Surgery Plastic and Reconstructive Surgery
DX: E66.01 Morbid (severe) obesity due to excess calories (principal); E89.1 Postprocedural hypoinsulinemia; D50.8 Other iron deficiency anemias; D50.9 Iron deficiency anemia, unspecified; E44.0 Moderate protein-calorie malnutrition; E44.1 Mild protein-calorie malnutrition; E46 Unspecified protein-calorie malnutrition; E45 Retarded development following protein-calorie malnutrition; E55.9 Vitamin D deficiency, unspecified; K74.1 Hepatic sclerosis; N19 Unspecified kidney failure; T56.894A Toxic effect of other metals, undetermined, initial encounter; Z68.34 Body mass index [BMI] 34.0-34.9, adult; Z91.048 Other nonmedicinal substance allergy status; Z88.1 Allergy status to other antibiotic agents; Z88.8 Allergy status to other drugs, medicaments and biological substances; Z91.02 Food additives allergy status
CPT/HCPCS: 84255; 84134; 84425; 80061; 80053; 82607; 82728; 82525; 82746; 83540; 83550; 83735; 84100; 84443; 84590; 84630; 85027; 85610; 85730; 82306; 83970; 97803; G0463; 83036; 99211

== ENCOUNTER → 2023-03-16 | Outpatient (CLI) | payer MEDICARE, OTHER ==
[2023-03-16 15:18] VITALS: BP 126/77; PULSE 79; TEMP 98.7; BMI 32.7
--- NOTE | 2023-03-16 15:52 | P.BASOAP ---
Subjective Progress Note Date: 03/16/23 She has fatigue. She has easy brusing. Keep it 80! Proten 70 g. Get down to 150. TSH is needing help. Iron correct for fatigue. No moderate dysphagia. Cannot tolerate diary. Meats hurts her stomach. Objective - Vital Signs Vital signs: Vital Signs Temp 98.7 F 03/16/23 15:13 Pulse 79 03/16/23 15:13 Resp BP 126/77 03/16/23 15:13 Pulse Ox FiO2 Intake & Output 03/15/23 03/16/23 03/16/23 18:59 06:59 18:59 Weight 89.811 kg Assessment/Plan Plan: Date: 03/16/23 Initial Weight: 102.965 kg Initial BMI: 37.5 Current Weight: 89.811 kg Current BMI: 32.7 Type of Surgery: Total Volume in Band: Previous Volume: Volume Removed: Volume Added: Band Size:
[2023-03-16 17:48] LABS: INR 0.9 (<1.2); Partial Thromboplastin Time 23.8 sec (22.0-30.0)
[2023-03-17 02:03] LABS: Prealbumin 24.8 mg/dL (18.0-42.0)
[2023-03-17 02:56] LABS: % Iron Saturation 18.15 (12.00-45.00); ALT 15 U/L (8-44); AST 17 U/L (13-35); Albumin 4.8 d/dL (3.8-4.9); Alkaline Phosphatase 92 U/L (41-126); BUN/Creat Ratio 18.62 Ratio (12.00-20.00); Blood Urea Nitrogen 14.9 mg/dL (9.0-27.0); Carbon Dioxide 23.3 mmol/L (21.6-31.8); Chloride 105 mmol/L (96-109); Chol/HDL Ratio 4.61 Ratio; Ferritin 83.7 ng/mL (10.0-291.0); Globulin 2.4 d/dL (1.6-3.3); Glucose 88 mg/dL (70-110); Iron 59 UG/DL (50-170); LDL Cholesterol,Calculated 150.2 mg/dL (0.0-131.0); Magnesium 2.4 mg/dL (1.5-2.4); Phosphorus 3.7 mg/dL (2.4-5.1); Potassium 4.2 mmol/L (3.5-5.5); Sodium 143 mmol/L (135-145); Total Bilirubin 0.3 mg/dL (0.3-1.2); Total Iron Binding Capacity 325 UG/DL (228-460); Total Protein 7.2 d/dL (6.2-8.2)
[2023-03-17 03:20] LABS: HCT 47.3 % (37.2-46.3); HGB 15.2 d/dL (12.0-15.0); MCH 29.6 pg (27.0-32.0); MCHC 32.1 d/dL (32.0-37.0); MCV 92.2 FL (80.0-97.0); Mean Platelet Volume 9.5 FL (9.5-12.2); NRBC Per 100 WBC 0 X 10*3/uL (0.00-0.01); Platelet Count 358 X 10*3/uL (140-440); RBC 5.13 X 10*6/uL (4.10-5.20); RDW 14.4 % (11.5-14.5); WBC 11.86 X 10*3/uL (4.50-10.00)
[2023-03-18 07:07] LABS: Vit B1(Thiamine) 98 ug/L (38-122)
[2023-03-18 07:56] LABS: Vitamin A 43 ug/dL (38-106)
== END ==
LOC: BARWHC3 14:29
PROVIDERS: ATTEND Surgery Plastic and Reconstructive Surgery
DX: E66.01 Morbid (severe) obesity due to excess calories (principal); E89.1 Postprocedural hypoinsulinemia; D50.8 Other iron deficiency anemias; E44.0 Moderate protein-calorie malnutrition; E44.1 Mild protein-calorie malnutrition; E45 Retarded development following protein-calorie malnutrition; E46 Unspecified protein-calorie malnutrition; E55.9 Vitamin D deficiency, unspecified; K74.1 Hepatic sclerosis; N19 Unspecified kidney failure; T56.894A Toxic effect of other metals, undetermined, initial encounter; Z68.32 Body mass index [BMI] 32.0-32.9, adult; Z91.048 Other nonmedicinal substance allergy status; Z88.1 Allergy status to other antibiotic agents; Z91.030 Bee allergy status; Z88.8 Allergy status to other drugs, medicaments and biological substances
CPT/HCPCS: 84255; 84134; 84425; 80061; 80053; 82607; 82728; 82525; 82746; 83540; 83550; 83735; 84100; 84443; 84590; 84630; 85027; 85610; 85730; 82306; 83970; 83036; 97803; G0463; 99211

== ENCOUNTER 2023-10-04 00:14 | Observation (INO) | payer MEDICARE, OTHER ==
[2023-10-04] MEDS ORDERED: SODIUM CHLORIDE 0.9% 1,000 ML IV ONE (00:45)
--- NOTE | 2023-10-04 01:03 | ED ---
General Adult HPI - General Chief complaint: Neuro Symptoms/Deficit Stated complaint: Dizziness Time Seen by Provider: 10/04/23 00:31 Source: patient, RN notes reviewed, old records reviewed Mode of arrival: wheelchair Limitations: no limitations - History of Present Illness Initial comments: 48 yo female with symptoms of fatigue, lightheadedness, over the past one week. Patient has history of pots syndrome. She denies central chest pain. Denies me asured fever. She's had some associated nausea. No focal numbness or weakness. Patient states she is confused at times over the past week. Patient slow to respond during history. Denies illicit drugs. - Related Data Home Medications Medication Instructions Recorded Confirmed Albuterol Sulfate [Ventolin HFA] 2 puff INHALATION Q4H PRN 09/08/22 03/16/23 Dextroamphetamine/Amphetamine 60 mg PO DAILY 09/08/22 03/16/23 [Dextroamp-Amphetamin 15 mg Tab] Levothyroxine Sodium [Synthroid] 125 mcg PO DAILY 09/10/22 03/16/23 lamoTRIgine 150 mg PO DAILY 09/10/22 03/16/23 Ergocalciferol [Vitamin D2 (1250 50,000 unit PO WEEKLY 02/01/23 03/16/23 Mcg = 32170 Iu)] Previous Rx's Medication Instructions Recorded Omeprazole [PriLOSEC] 40 mg PO DAILY #30 cap 12/14/22 Hyoscyamine Elixir [Levsin 0.125 mg PO Q6HR PRN #10 ml 12/22/22 0.125MG/ML Drops] Levothyroxine Sodium 150 mcg PO DAILY #90 tab 03/31/23 Allergies Allergy/AdvReac Type Severity Reaction Status Date / Time adhesive tape Allergy Unknown Verified 10/04/23 00:25 bacitracin Allergy Unknown Verified 10/04/23 00:25 [From Neosporin ([id number])] bee venom protein (honey bee) Allergy Swelling Verified 10/04/23 00:25 neomycin Allergy Rash/Hives Verified 10/04/23 00:25 [From Neosporin ([id number])] polymyxin B Allergy Rash/Hives Verified 10/04/23 00:25 [From Neosporin ([id number])] Review of Systems ROS Statement: Those systems with pertinent positive or pertinent negative responses have been documented in the HPI. ROS Other: All systems not noted in ROS Statement are negative. Past Medical History Past Medical History: Asthma, Osteoarthritis (OA), Thyroid Disorder Additional Past Medical History / Comment(s): kidney stones, DIVERTICULITIS. 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 POTS History of Any Multi-Drug Resistant Organisms: None Reported Past Surgical History: Bariatric Surgery, Section, Orthopedic Surgery, Tonsillectomy, Uterine Ablation Additional Past Surgical History / Comment(s): eye surgery, rt foot, gastric sleeve 12/14/22 Past Anesthesia/Blood Transfusion Reactions: Postoperative Nausea & Vomiting (PONV) Past Psychological History: Anxiety, Depression Smoking Status: Former smoker, Vaper Past Alcohol Use History: None Reported Past Drug Use History: None Reported - Past Family History Father Family Medical History: Congestive Heart Failure (CHF) Mother Family Medical History: Rheumatoid Arthritis (RA), Thyroid Disorder Sister(s) Family Medical History: Cancer Additional Family Medical History / Comment(s): uterine General Exam Limitations: no limitations General appearance: in no apparent distress, lethargic Head exam: Present: atraumatic, normocephalic Eye exam: Present: normal appearance, PERRL ENT exam: Present: normal exam Neck exam: Present: normal inspection. Absent: tenderness, meningismus Respiratory exam: Present: normal lung sounds bilaterally. Absent: respiratory distress, wheezes Cardiovascular Exam: Present: regular rate, normal rhythm GI/Abdominal exam: Present: soft. Absent: distended, tenderness, guarding Extremities exam: Present: normal inspection, normal capillary refill. Absent: pedal edema Back exam: Present: normal inspection Neurological exam: Present: alert, oriented X3 Psychiatric exam: Present: flat affect Skin exam: Present: warm, dry, intact Course Vital Signs 10/04/23 10/04/23 00:22 02:20 Temperature 99 F Pulse Rate 75 61 Respiratory 18 18 Rate Blood Pressure 124/85 120/82 O2 Sat by Pulse 99 97 Oximetry Medical Decision Making - Medical Decision Making Was pt. sent in by a medical professional or institution (, PA, [employer], urgent care, hospital, or fpc...) When possible be specific @ -No Did you speak to anyone other than the patient for history (EMS, parent, family, police, friend...)? What history was obtained from this source @ -No Did you review nursing and triage notes (agree or disagree)? Why? @ -I reviewed and agree with nursing and triage notes Were old charts reviewed (outside hosp., previous admission, EMS record, old EKG, old radiological studies, urgent care reports/EKG's, fpc records)? Report findings @ -No old charts were reviewed Differential Diagnosis (chest pain, altered mental status, abdominal pain women, abdominal pain men, vaginal bleeding, weakness, fever, dyspnea, syncope, headache, dizziness, GI bleed, back pain, seizure, CVA, palpatations, mental health, musculoskeletal)? @ -[Differential Altered Mental Status: Hypoglycemia, DKA, hypercapnia, ETOH, overdose, CO poisoning, trauma, myxedema coma, HTN encephalopathy, infection, encephalitis, psychosis, intercranial hemorrhage, hepatic encephalopathy, meningitis, CVA, this is not meant to be an all-inclusive list EKG interpreted by me (3pts min.). @ -Sinus rhythm rate of 68, CT interval 129, QRS duration 86, QTC 4:[address] segment elevation. X-rays interpreted by me (1pt min.). @Chest x-ray negative for acute cardiopulmonary findings CT interpreted by me (1pt min.). @ -None done U/S interpreted by me (1pt. min.). @ -None done What testing was considered but not performed or refused? (CT, X-rays, U/S, labs)? Why? @ -None What meds were considered but not given or refused? Why? @ -None Did you discuss the management of the patient with other professionals (professionals i.e. , PA, [employer], lab, RT, psych nurse, social sciences professor, frame opener, teacher, production officer, case preparer and liner)? Give summary @ -EMH Was smoking cessation discussed for >3mins.? @ -No Was critical care preformed (if so, how long)? @ -No Were there social determinants of health that impacted care today? How? (Homelessness, low income, unemployed, alcoholism, drug addiction, transportation, low edu. Level, literacy, decrease access to med. care, usp, rehab)? @ -No Was there de-escalation of care discussed even if they declined (Discuss DNR or withdrawal of care, Hospice)? DNR status @ -No What co-morbidities impacted this encounter? (DM, HTN, Smoking, COPD, CAD, Cancer, CVA, ARF, Chemo, Hep., AIDS, mental health diagnosis, sleep apnea, morbid obesity)? @ Hypothyroidism Was patient admitted / discharged? Hospital course, mention meds given and route, prescriptions, significant lab abnormalities, going to OR and other pertinent info. @ -48-year-old female presenting with lightheadedness, dizziness, confusion. Patient has a very flat affect and is slow to respond. She denies alcohol or illicit drugs. Denies focal numbness or weakness. Patient is in sinus rhythm with stable vitals. She has normal CBC, normal CMP, normal TSH, negative troponin. Urinalysis and urine drug screen is pending. Head CT is negative for intracranial hemorrhage or mass effect. This patient is reporting an acute change although the cause has not been identified in the emergency department she will benefit from monitoring on telemetry and neurology consultation. Undiagnosed new problem with uncertain prognosis? @ -No Drug Therapy requiring intensive monitoring for toxicity (Heparin, Nitro, Insulin, Cardizem)? @ -No Were any procedures done? @ -No Diagnosis/symptom? @ Dizziness, confusion Acute, or Chronic, or Acute on Chronic? @ -acute Uncomplicated (without systemic symptoms) or Complicated (systemic symptoms)? @ -default Side effects of treatment? @ -No Exacerbation, Progression, or Severe Exacerbation? @ -No Poses a threat to life or bodily function? How? (Chest pain, [place], [place], pneumonia, PE, COPD, DKA, ARF, appy, cholecystitis, CVA, Diverticulitis, Homicidal, Suicidal, threat to staff... and all critical care pts) @ -Moderate risk - Lab Data Result diagrams: 10/04/23 01:02 10/04/23 01:02 Lab Results 10/04/23 10/04/23 10/04/23 Range/Units 01:02 01:02 01:02 WBC 10.0 (3.8-10.6) k/uL RBC 4.47 (3.80-5.40) m/uL Hgb 13.9 (11.4-16.0) gm/dL Hct 41.0 (34.0-46.0) % MCV 91.6 (80.0-100.0) fL MCH 31.1 (25.0-35.0) pg MCHC 33.9 (31.0-37.0) g/dL RDW 13.7 (11.5-15.5) % Plt Count 343 (150-450) k/uL MPV 7.4 Neutrophils % 56 % Lymphocytes % 34 % Monocytes % 5 % Eosinophils % 2 % Basophils % 1 % Neutrophils # 5.6 (1.3-7.7) k/uL Lymphocytes # 3.4 (1.0-4.8) k/uL Monocytes # 0.5 (0-1.0) k/uL Eosinophils # 0.2 (0-0.7) k/uL Basophils # 0.1 (0-0.2) k/uL PT 9.8 L (10.0-12.5) sec INR 0.9 (<1.2) APTT 25.5 (22.0-30.0) sec Sodium 141 (137-145) mmol/L Potassium 4.1 (3.5-5.1) mmol/L Chloride 105 (98-107) mmol/L Carbon Dioxide 23 (22-30) mmol/L Anion Gap 13 mmol/L BUN 18 H (7-17) mg/dL Creatinine 0.77 (0.52-1.04) mg/dL Est GFR (CKD-EPI)AfAm >90 (>60 ml/min/1.73 sqM) Est GFR (CKD-EPI)NonAf >90 (>60 ml/min/1.73 sqM) Glucose 104 H (74-99) mg/dL Plasma Lactic Acid Rajeev (0.7-2.0) mmol/L Calcium 8.8 (8.4-10.2) mg/dL Magnesium 2.1 (1.6-2.3) mg/dL Total Bilirubin 0.3 (0.2-1.3) mg/dL AST 29 (14-36) U/L ALT 24 (4-34) U/L Alkaline Phosphatase 78 (38-126) U/L Troponin I (0.000-0.034) ng/mL Total Protein 6.6 (6.3-8.2) g/dL Albumin 4.0 (3.5-5.0) g/dL TSH 3.700 (0.465-4.680) mIU/L Serum Alcohol <10 mg/dL Influenza Type A (PCR) (Not Detectd) Influenza Type B (PCR) (Not Detectd) RSV (PCR) (Not Detectd) SARS-CoV-2 (PCR) (Not Detectd) 10/04/23 10/04/23 10/04/23 Range/Units 01:02 01:02 01:02 WBC (3.8-10.6) k/uL RBC (3.80-5.40) m/uL Hgb (11.4-16.0) gm/dL Hct (34.0-46.0) % MCV (80.0-100.0) fL MCH (25.0-35.0) pg MCHC (31.0-37.0) g/dL RDW (11.5-15.5) % Plt Count (150-450) k/uL MPV Neutrophils % % Lymphocytes % % Monocytes % % Eosinophils % % Basophils % % Neutrophils # (1.3-7.7) k/uL Lymphocytes # (1.0-4.8) k/uL Monocytes # (0-1.0) k/uL Eosinophils # (0-0.7) k/uL Basophils # (0-0.2) k/uL PT (10.0-12.5) sec INR (<1.2) APTT (22.0-30.0) sec Sodium (137-145) mmol/L Potassium (3.5-5.1) mmol/L Chloride (98-107) mmol/L Carbon Dioxide (22-30) mmol/L Anion Gap mmol/L BUN (7-17) mg/dL Creatinine (0.52-1.04) mg/dL Est GFR (CKD-EPI)AfAm (>60 ml/min/1.73 sqM) Est GFR (CKD-EPI)NonAf (>60 ml/min/1.73 sqM) Glucose (74-99) mg/dL Plasma Lactic Acid Rajeev 1.1 (0.7-2.0) mmol/L Calcium (8.4-10.2) mg/dL Magnesium (1.6-2.3) mg/dL Total Bilirubin (0.2-1.3) mg/dL AST (14-36) U/L ALT (4-34) U/L Alkaline Phosphatase (38-126) U/L Troponin I <0.012 (0.000-0.034) ng/mL Total Protein (6.3-8.2) g/dL Albumin (3.5-5.0) g/dL TSH (0.465-4.680) mIU/L Serum Alcohol mg/dL Influenza Type A (PCR) Not Detected (Not Detectd) Influenza Type B (PCR) Not Detected (Not Detectd) RSV (PCR) Not Detected (Not Detectd) SARS-CoV-2 (PCR) Not Detected (Not Detectd) Disposition Clinical Impression: AMS (altered mental status), Dizziness Disposition: ADMITTED IP TO THIS HOSP Condition: Stable Is patient prescribed a controlled substance at d/c from ED?: No Referrals: Dayana Rouse MD [Primary Care Provider] - 1-2 days Time of Disposition: 03:20
[2023-10-04 01:14] LABS: Basophils # (A) 0.1 k/uL (0-0.2); Basophils % (A) 1 %; Eosinophils # (A) 0.2 k/uL (0-0.7); Eosinophils % (A) 2 %; HGB 13.9 gm/dL (11.4-16.0); Lymphocytes # (A) 3.4 k/uL (1.0-4.8); Lymphocytes % (A) 34 %; MCH 31.1 pg (25.0-35.0); MCHC 33.9 g/dL (31.0-37.0); MCV 91.6 fL (80.0-100.0); Mean Platelet Volume 7.4; Monocytes # (A) 0.5 k/uL (0-1.0); Monocytes % (A) 5 %; Neutrophils # (A) 5.6 k/uL (1.3-7.7); Neutrophils % (A) 56 %; Platelet Count 343 k/uL (150-450); RBC 4.47 m/uL (3.80-5.40); RDW 13.7 % (11.5-15.5)
[2023-10-04 01:24] LABS: ALT 24 U/L (4-34); AST 29 U/L (14-36); African American GFR (CKD) >90 (>60 ml/min/1.73 sqM); Alcohol <10 mg/dL; Alkaline Phosphatase 78 U/L (38-126); Anion Gap 13 mmol/L; Blood Urea Nitrogen 18 mg/dL (7-17); Calcium 8.8 mg/dL (8.4-10.2); Carbon Dioxide 23 mmol/L (22-30); Chloride 105 mmol/L (98-107); Glucose 104 mg/dL (74-99); Magnesium 2.1 mg/dL (1.6-2.3); Non-African American GFR(CKD) >90 (>60 ml/min/1.73 sqM); Potassium 4.1 mmol/L (3.5-5.1); Sodium 141 mmol/L (137-145); Total Bilirubin 0.3 mg/dL (0.2-1.3); Total Protein 6.6 g/dL (6.3-8.2)
[2023-10-04 01:32] LABS: INR 0.9 (<1.2); Partial Thromboplastin Time 25.5 sec (22.0-30.0); Prothrombin Time 9.8 sec (10.0-12.5)
--- NOTE | 2023-10-04 03:09 | CT ---
EXAM: CT Head Without Intravenous Contrast CLINICAL HISTORY: ITS.REASON CT Reason: weakness TECHNIQUE: Axial computed tomography images of the head/brain without intravenous contrast. CTDI is 49.2 mGy and DLP is 1153.4 mGy-cm. This CT exam was performed using one or more of the following dose reduction techniques: automated exposure control, adjustment of the mA and/or kV according to patient size, and/or use of iterative reconstruction technique. COMPARISON: No relevant prior studies available. FINDINGS: Brain: No hemorrhage or mass effect. Ventricles: No hydrocephalus. Bones/joints: Unremarkable. Soft tissues: Unremarkable. Sinuses: No air fluid level. Mastoid air cells: Clear. IMPRESSION: No acute hemorrhage, hydrocephalus, or mass effect.
[2023-10-04] MEDS ORDERED: ACETAMINOPHEN TAB 325 MG TAB PO PRN (03:15)
[2023-10-04] MEDS ORDERED: NALOXONE 0.4 MG/ML 1 ML VIAL IV PRN (03:15)
[2023-10-04] MEDS ORDERED: ASPIRIN 325 MG TAB PO STA (03:21)
--- NOTE | 2023-10-04 03:22 | XR ---
EXAM: XR Chest, 2 Views CLINICAL HISTORY: ITS.REASON XR Reason: Weakness TECHNIQUE: Frontal and lateral views of the chest. COMPARISON: No relevant prior studies available. FINDINGS: Lungs: No consolidation or mass. Pleural space: No effusion. Heart: No cardiomegaly. Bones/joints: No acute findings. IMPRESSION: No acute cardiopulmonary process.
[2023-10-04] MEDS: SODIUM CHLORIDE 0.9% 1,000 ML IV SCH ×2 (03:25→18:06)
[2023-10-04 06:01] LABS: Amorphous Sediment,Urine Few /hpf; Appearance,Urine Cloudy (Clear); Bilirubin,Urine Negative (Negative); Blood,Urine Negative (Negative); Color,Urine Yellow; Glucose,Urine (UA) Negative (Negative); Ketones,Urine Negative (Negative); Leukocyte Esterase,Urine Negative (Negative); Mucus,Urine Many /hpf; Nitrite,Urine Negative (Negative); PH, Urine 6.5 (5.0-8.0); Protein,Urine Negative (Negative); RBC,Urine 2 /hpf (0-5); Specific Gravity,Urine 1.028 (1.001-1.035); Squamous Epithelial Cell,Urine 5 /hpf (0-4); Urobilinogen,Urine <2.0 mg/dL (<2.0); WBC,Urine 1 /hpf (0-5)
[2023-10-04 06:33] LABS: Amphetamine Screen,Urine Detected (NotDetected); Cocaine Screen,Urine Not Detected (NotDetected); Opiate Screen,Urine Not Detected (NotDetected); Phencyclidine Screen,Urine Not Detected (NotDetected); Urn Cannabinoid Scrn Detected (NotDetected)
[2023-10-04 06:34] LABS: Barbiturate Screen,Urine Not Detected (NotDetected); Benzodiazepines Screen,Urine Not Detected (NotDetected); Methadone Screen, Urine Not Detected (NotDetected); Oxycodone Screen, Urine Not Detected (NotDetected); Tricyclic Antidepressant,Urine Not Detected (NotDetected)
[2023-10-04] MEDS: lamoTRIgine 100 MG TAB PO SCH (09:14)
[2023-10-04] MEDS: METOPROLOL TARTRATE 12.5 MG TAB PO SCH ×2 (09:14→21:32)
[2023-10-04] MEDS: PANTOPRAZOLE 40 MG TABLET PO SCH (09:14)
[2023-10-04] MEDS: LEVOTHYROXINE 137 MCG TAB PO SCH (09:15)
--- NOTE | 2023-10-04 10:37 | P.HPIM ---
History of Present Illness H&P Date: 10/04/23 Patient is a 48-year-old female with history of POTS, bipolar disorder, GERD, ADHD, Graves' disease status post thyroidectomy, presenting with weakness, lightheadedness, altered mentation. She claims that she has not been feeling "well" over the last 1 week. She claims that she's been feeling weak. Has not been eating well. She has also been having abdominal pain with occasional nausea. She also has occasional urinary symptoms including urinary frequency. However, yesterday evening she felt even more lethargic, lightheaded, and her son noticed speech changes including slurring of words. She denies any recent fevers, chills, palpitations, chest pain. She denies any recent medication changes. She denies any recent sick contacts or travel history. She claims that it is very similar to her POTS flare up. She denies any alcohol use, but smokes cigs 3 packs/week, smokes marijuana. In the ED, temperature was 99, pulse 75, respiratory rate 18, blood pressure 124/85, saturating at 99% on room air. WBC 10, hemoglobin 13.9, creatinine 0.77, glucose 104, troponin negative, TSH 2.7, urinalysis negative, toxicology positive for amphetamine and marijuana. Respiratory viral panel negative. EKG independently interpreted, shows sinus rhythm. Brain CT does not show any acute process. Chest x-ray was interpreted, no opacities. Patient admitted for further workup. Neurology consulted. Pertinent positives and negatives as discussed in HPI, a complete review of systems was performed and all other systems are negative. Patient seen and examined at bedside. Vital signs reviewed General: nontoxic, no distress, appears at stated age, appears lethargic Derm: warm, dry Head: atraumatic, normocephalic, symmetric Eyes: EOMI, no lid lag, anicteric sclera, pupils equal round reactive to light ENT: Nose and ears atraumatic Neck: No thyromegaly, supple Mouth: no lip lesion, mucus membranes moist Cardiovascular: S1S2 reg, no murmur, no edema Lungs: clear to auscultation bilateral, no rhonchi, no rales, no wheeze, no accessory muscle use Abdominal: soft, nontender to palpation, no guarding, no appreciable organomegaly Ext: no gross muscle atrophy, muscle strength muscle strength 5 out of 5 in all 4 extremities, no contractures Neuro: CN II-XII grossly intact Psych: Alert, oriented, appropriate affect Assessment/Plan: Active: Generalized weakness Acute metabolic encephalopathy - unlikle to be related to POTS as symptoms were not secondary to postural changes, and are too persistent - possible dehydration - continue NS 75 cc/hr, encourage oral intake - check orthostatic vitals - continue tele - TSH normal, UA unremarkable - no recent medications changes - pending neurology consult - PT/OT Bipolar - continue lamictal 150 daily Hx of Graves, s/p thyroidectomy, now hypothyroid - continue synthroid 137 mcg daily POTS - on metoprolol 12.5 BID, continue The patient is admitted with an anticipated less than 2 midnight stay as observation status for evaluation of encephalopathy. Surrogate decision-maker: sibling CODE STATUS:FC DVT prophylaxis: lovenox Anticipated discharge date: 1-[address]: pending clinical course A total of 55 minutes was spent on the care of this complex patient more than 50% of the time was spent in counseling and care coordination. Past Medical History Past Medical History: Asthma, Osteoarthritis (OA), Thyroid Disorder Additional Past Medical History / Comment(s): kidney stones, DIVERTICULITIS. 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 POTS History of Any Multi-Drug Resistant Organisms: None Reported Past Surgical History: Bariatric Surgery, Section, Orthopedic Surgery, Tonsillectomy, Uterine Ablation Additional Past Surgical History / Comment(s): eye surgery, rt foot, gastric sleeve 12/14/22 Past Anesthesia/Blood Transfusion Reactions: Postoperative Nausea & Vomiting (PONV) Past Psychological History: Anxiety, Depression Smoking Status: Former smoker, Vaper Past Alcohol Use History: None Reported Past Drug Use History: None Reported - Past Family History Father Family Medical History: Congestive Heart Failure (CHF) Mother Family Medical History: Rheumatoid Arthritis (RA), Thyroid Disorder Sister(s) Family Medical History: Cancer Additional Family Medical History / Comment(s): uterine Medications and Allergies Home Medications Medication Instructions Recorded Confirmed Type Albuterol Sulfate [Ventolin HFA] 2 puff INHALATION RT-Q4H PRN 09/08/22 10/04/23 History lamoTRIgine 150 mg PO DAILY 09/10/22 10/04/23 History Dextroamphetamine/Amphetamine 30 mg PO BID 10/04/23 10/04/23 History [Adderall] Ibuprofen [Motrin] 800 mg PO TID PRN 10/04/23 10/04/23 History Levothyroxine Sodium [Synthroid] 137 mcg PO DAILY 10/04/23 10/04/23 History Metoprolol Tartrate [Lopressor] 12.5 mg PO BID 10/04/23 10/04/23 History Pantoprazole [Protonix] 40 mg PO DAILY 10/04/23 10/04/23 History Pnv,Calcium 72/Iron/Folic Acid 1 tab PO DAILY 10/04/23 10/04/23 History [[place] Plus Tablet] Allergies Allergy/AdvReac Type Severity Reaction Status Date / Time adhesive tape Allergy Unknown Verified 10/04/23 07:09 bacitracin Allergy Unknown Verified 10/04/23 07:09 [From Neosporin ([id number])] bee venom protein (honey bee) Allergy Swelling Verified 10/04/23 07:09 neomycin Allergy Rash/Hives Verified 10/04/23 07:09 [From Neosporin ([id number])] polymyxin B Allergy Rash/Hives Verified 10/04/23 07:09 [From Neosporin ([id number])] Physical Exam Vitals: Vital Signs Temp Pulse Resp BP Pulse Ox 10/04/23 06:04 64 18 127/79 97 10/04/23 02:20 61 18 120/82 97 10/04/23 00:22 99 F 75 18 124/85 99 Intake and Output 10/03/23 10/04/23 10/04/23 22:59 06:59 14:59 Other: Weight 74.843 kg Results CBC & Chem 7: 10/04/23 01:02 10/04/23 01:02 Labs: Abnormal Lab Results - Last 24 Hours (Table) 10/04/23 10/04/23 10/04/23 Range/Units 01:02 01:02 01:02 PT 9.8 L (10.0-12.5) sec BUN 18 H (7-17) mg/dL Glucose 104 H (74-99) mg/dL Urine Appearance Cloudy H (Clear) Ur Squamous Epith Cells 5 H (0-4) /hpf Amorphous Sediment Few H (None) /hpf Urine Mucus Many H (None) /hpf Ur Amphetamines Screen (NotDetected) U Marijuana (THC) Screen (NotDetected) 10/04/23 Range/Units 03:17 PT (10.0-12.5) sec BUN (7-17) mg/dL Glucose (74-99) mg/dL Urine Appearance (Clear) Ur Squamous Epith Cells (0-4) /hpf Amorphous Sediment (None) /hpf Urine Mucus (None) /hpf Ur Amphetamines Screen Detected H (NotDetected) U Marijuana (THC) Screen Detected H (NotDetected)
--- NOTE | 2023-10-04 17:13 | P.CNNES ---
History of Present Illness Consult date: 10/04/23 Requesting physician: Don Bueno Reason for Consult: dizzy, confusion History of Present Illness: This is a 48-year-old woman who presented emergency department because of episode of confusion bilateral jaw pain, generalized weakness. She dates that since yesterday p.m. she's been confused with jaw numbness blurry vision both eyes lately. She notified me that the she is on distress. It seems that she notified the primary team that she has generalized weakness for the last 1 week. She'll notify me that that she is on Adderall for ADHD. She was notified that she has early onset MS while she was living in [place] and has not followed up with a neurologist in 5 years. She notes that she had MRI the brain in the past but does not remember what other neurological workup for MS she had. She was not sure on the disease modifying therapy and again as stated the she has not followed up with a neurologist in 5 years. She was notified the nurse that she lost custody of her grandchild that she was taking care of for 18 months as well as she is under a lot of stress. She stated that she has POTS syndrome. Some of the workup during his hospital visit consisted of: CBC with differential is unremarkable Chemistry panel seems unremarkable TSH is 3.70.. UDS is positive for amphetamine and marijuana. CT of the head is reported as no acute hemorrhage, hydrocephalus or mass effect. I personally reviewed the CT and agree with the report. Review of Systems Review of system: The 12 point system was reviewed and apparent positive and negative per HPI. Past Medical History Past Medical History: Asthma, Osteoarthritis (OA), Thyroid Disorder Additional Past Medical History / Comment(s): kidney stones, DIVERTICULITIS. 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 POTS History of Any Multi-Drug Resistant Organisms: None Reported Past Surgical History: Bariatric Surgery, Section, Orthopedic Surgery, Tonsillectomy, Uterine Ablation Additional Past Surgical History / Comment(s): eye surgery, rt foot, gastric sleeve 12/14/22 Past Anesthesia/Blood Transfusion Reactions: Postoperative Nausea & Vomiting (PONV) Past Psychological History: Anxiety, Depression Smoking Status: Former smoker, Vaper Past Alcohol Use History: None Reported Past Drug Use History: None Reported - Past Family History Father Family Medical History: Congestive Heart Failure (CHF) Mother Family Medical History: Rheumatoid Arthritis (RA), Thyroid Disorder Sister(s) Family Medical History: Cancer Additional Family Medical History / Comment(s): uterine Medications and Allergies Home Medications Medication Instructions Recorded Confirmed Type Albuterol Sulfate [Ventolin HFA] 2 puff INHALATION RT-Q4H PRN 09/08/22 10/04/23 History lamoTRIgine 150 mg PO DAILY 09/10/22 10/04/23 History Dextroamphetamine/Amphetamine 30 mg PO BID 10/04/23 10/04/23 History [Adderall] Ibuprofen [Motrin] 800 mg PO TID PRN 10/04/23 10/04/23 History Levothyroxine Sodium [Synthroid] 137 mcg PO DAILY 10/04/23 10/04/23 History Metoprolol Tartrate [Lopressor] 12.5 mg PO BID 10/04/23 10/04/23 History Pantoprazole [Protonix] 40 mg PO DAILY 10/04/23 10/04/23 History Pnv,Calcium 72/Iron/Folic Acid 1 tab PO DAILY 10/04/23 10/04/23 History [Westab Plus Tablet] Allergies Allergy/AdvReac Type Severity Reaction Status Date / Time adhesive tape Allergy Unknown Verified 10/04/23 07:09 bacitracin Allergy Unknown Verified 10/04/23 07:09 [From Neosporin ([id number])] bee venom protein (honey bee) Allergy Swelling Verified 10/04/23 07:09 neomycin Allergy Rash/Hives Verified 10/04/23 07:09 [From Neosporin ([id number])] polymyxin B Allergy Rash/Hives Verified 10/04/23 07:09 [From Neosporin ([id number])] Physical Examination - Vital Signs Vital Signs: Vital Signs Temp Pulse Pulse Pulse Pulse Pulse Resp 10/04/23 14:21 97.5 F L 54 L 16 10/04/23 11:00 54 L 54 L 44 L 10/04/23 07:25 97.7 F 54 L 16 10/04/23 06:04 64 18 10/04/23 02:20 61 18 10/04/23 00:22 99 F 75 18 BP BP BP BP BP Pulse Ox 10/04/23 14:21 112/64 100 10/04/23 11:00 119/79 114/78 107/70 100 10/04/23 07:25 125/79 98 10/04/23 06:04 127/79 97 10/04/23 02:20 120/82 97 10/04/23 00:22 124/85 99 Intake and Output 10/04/23 10/04/23 10/04/23 06:59 14:59 22:59 Intake Total 718 Balance 718 Intake: Intake, IV Titration 600 Amount Sodium Chloride 0.9% 1, 600 000 ml @ 75 mls/hr IV . [id number] LOUIE Rx#:[id number] Oral 118 Other: Weight 74.843 kg GENERAL: The patient is lying in bed and is not in acute distress. NEUROLOGICAL: Higher mental function: The patient is awake, alert, oriented to self, place and time. She is somewhat slow with hypophonia responding. Patient is following commands. No aphasia and no neglect. Cranial nerves: The pupils are round, equal and reactive to light and accommodation. Visual bernal are full to confrontation throughout. Extraocular movement is intact no nystagmus is noted. Facial sensation is normal to touch throughout. The facial strength is normal throughout. Hearing is normal bilaterally to hand rub. Tongue is midline and moved [id number] without any d ifficulty. No dysarthria is noted. Shoulder shrug is normal bilaterally. Motor: The strength is 5 over 5 throughout. Normal tone and bulk. Cerebellum: Normal finger to nose heel to damon bilaterally. Sensation: Sensation is normal to touch throughout. Reflexes (right/left): 2+ throughout. Plantars are downgoing bilaterally. Results - Laboratory Findings CBC and BMP: 10/04/23 01:02 10/04/23 01:02 Abnormal Lab Findings: Abnormal Labs 10/04/23 10/04/23 10/04/23 01:02 01:02 01:02 PT 9.8 L BUN 18 H Glucose 104 H Urine Appearance Cloudy H Ur Squamous Epith Cells 5 H Amorphous Sediment Few H Urine Mucus Many H Ur Amphetamines Screen U Marijuana (THC) Screen 10/04/23 03:17 PT BUN Glucose Urine Appearance Ur Squamous Epith Cells Amorphous Sediment Urine Mucus Ur Amphetamines Screen Detected H U Marijuana (THC) Screen Detected H Assessment and Plan Assessment: This is a 48-year-old woman who presented emergency department because of confusion, bilateral jaw numbness, blurry vision, generalized weakness for the last 1 day but states having generalized weakness for the last 1 week. She feels she is under stress and she notified the nurse that she lost custody of her grandchild. She states she has history of MS early onset about 15 years ago and has not followed up with a neurologist within 5 years. Transient episode of confusion with jaw numbness blurry vision and generalized weakness unsure exactly etiology if it's central versus psychiatric. Reported MS about 15 years ago that early onset but has not followed up with a neurologist for at least 5 years and is not on disease modifying therapy POTS syndrome Graves' disease status post thyroidectomy on Synthroid TSH is unremarkable Bipolar Plan: Notified the primary team to pursue with the MRI the brain as well as routine EEG I ordered ammonia level, vitamin B-12, folate Notified the patient to follow-up with a neurologist as an outpatient regarding her history of MS will defer further neurological workup as well as the disease modifying therapy as an outpatient neurologist. Recommend follow-up with a neurologist within 1-2 weeks as an outpatient. PT and OT are consulted We'll defer the rest of the medical management to primary team The plan was discussed with the patient and primary attending Thank you for the consultation Time with Patient: Greater than 30
[2023-10-04] MEDS: ALBUTEROL HFA INHALER INHALATION PRN (20:12)
--- NOTE | 2023-10-05 02:10 | EEG ---
ELECTROENCEPHALOGRAM REPORT CLINICAL HISTORY: This is a 48-year-old woman with altered mental status. The video EEG is obtained to evaluate for seizure epileptiform activity. RELEVANT MEDICATIONS: Lamictal. EEG TYPE: A routine 21-channel EEG with video using the 10/20 electrode system. DESCRIPTION: Predominantly, the patient is in a drowsy state, brief wakefulness. During the awake state, it is hard to ascertain the posterior-dominant rhythm because of the very low voltage, but appears possibly 10 hertz activity. As stated above, the patient is predominantly in a drowsy state. There is no physiological stage 2 sleep architecture. There is no focal slowing. Interictal and ictal, none. ACTIVATION PROCEDURE: Photic stimulation did evoke a posterior driving response at 14 hertz and 16 hertz flash frequency. There is no abnormality during the photic stimulation. Hyperventilation is not performed. CLINICAL INTERPRETATION: This is a normal routine EEG. There is no focal slowing, epileptiform discharge, or seizure on the EEG. A normal routine EEG does not rule out underlying epilepsy. Clinical correlation is recommended. OLEKSANDR / ROSANNE: [id number] / MTDDominic
[2023-10-05] MEDS: PANTOPRAZOLE 40 MG TABLET PO SCH (06:03)
[2023-10-05] MEDS: LEVOTHYROXINE 137 MCG TAB PO SCH (06:03)
[2023-10-05] MEDS: SODIUM CHLORIDE 0.9% 1,000 ML IV SCH (06:47)
[2023-10-05 07:41] VITALS: RESP 18; TEMP 97.7
[2023-10-05] MEDS: ALBUTEROL HFA INHALER INHALATION PRN ×2 (07:47→11:25)
[2023-10-05] MEDS ORDERED: ENOXAPARIN 40 MG/0.4 ML SYRINGE SQ SCH (09:00)
[2023-10-05] MEDS: lamoTRIgine 100 MG TAB PO SCH (10:05)
[2023-10-05] MEDS: METOPROLOL TARTRATE 12.5 MG TAB PO SCH (10:06)
[2023-10-05 10:07] VITALS: BP 104/61; PULSE 60
--- NOTE | 2023-10-05 10:57 | P.DS ---
Providers Date of admission: 10/04/23 03:17 Expected date of discharge: 10/05/23 Attending physician: Inna Parham DO Consults: 10/04/23 03:15 Consult Physician Routine Consulting Provider: Jorge Reyes Consult Reason/Comments: Dizzy, confusion Do you want consulting provider notified?: Yes Primary care physician: Dayana Rouse [facility] Course: Discharge Diagnosis: Acute metabolic encephalopathy Generalized weakness Bipolar disorder History of Graves' status post thyroidectomy now hypothyroidism POTS History of MS diagnosis History of RA diagnosis ADHD Hospital Course: Patient is a 48-year-old female with history of POTS, bipolar disorder, possible MS, possible rheumatoid arthritis, GERD, ADHD, Graves' disease status post thyroidectomy, presenting with weakness, lightheadedness, altered mentation. In the ED, temperature was 99, pulse 75, respiratory rate 18, blood pressure 124/85, saturating at 99% on room air. WBC 10, hemoglobin 13.9, creatinine 0. 77, glucose 104, troponin negative, TSH 2.7, urinalysis negative, toxicology positive for amphetamine and marijuana. Respiratory viral panel negative. EKG independently interpreted, shows sinus rhythm. Brain CT does not show any acute process. Chest x-ray was interpreted, no opacities. Patient admitted for further workup. Neurology consulted. EEG within normal limits. Unable to get an MRI given loop recorder. Symptoms improved and the time of discharge. Orthostatic vitals were negative. Patient being discharged home and follow-up with neurology. Patient seen and examined at bedside. Vital signs reviewed and stable. General: nontoxic, no distress, appears at stated age Derm: warm, dry Head: atraumatic, normocephalic, symmetric Eyes: EOMI, no lid lag, anicteric sclera Mouth: no lip lesion, mucus membranes moist Cardiovascular: S1S2 reg, no murmur Lungs: CTA bilateral, no rhonchi, no rales , no accessory muscle use Abdominal: soft, nontender to palpation, no guarding, no appreciable organomegaly Ext: no gross muscle atrophy, no edema, no contractures Neuro: CN II-XI grossly intact, no focal neuro deficits Psych: Alert, oriented, appropriate affect A total of 33 minutes of time were spent preparing this complex discharge summary. Patient was discharged on 10/05/23 at 1051. Patient Condition at Discharge: Stable Plan - Discharge Summary Discharge Rx Participant: No New Discharge Prescriptions: Continue lamoTRIgine 150 mg PO DAILY Pantoprazole [Protonix] 40 mg PO DAILY Metoprolol Tartrate [Lopressor] 12.5 mg PO BID Pnv,Calcium 72/Iron/Folic Acid [Westab Plus Tablet] 1 tab PO DAILY Albuterol Sulfate [Ventolin HFA] 2 puff INHALATION RT-Q4H PRN PRN Reason: Wheezing Dextroamphetamine/Amphetamine [Adderall] 30 mg PO BID Levothyroxine Sodium [Synthroid] 137 mcg PO DAILY Ibuprofen [Motrin] 800 mg PO TID PRN PRN Reason: Pain Discharge Medication List Albuterol Sulfate [Ventolin HFA] 2 puff INHALATION RT-Q4H PRN 09/08/22 [History] lamoTRIgine 150 mg PO DAILY 09/10/22 [History] Dextroamphetamine/Amphetamine [Adderall] 30 mg PO BID 10/04/23 [History] Ibuprofen [Motrin] 800 mg PO TID PRN 10/04/23 [History] Levothyroxine Sodium [Synthroid] 137 mcg PO DAILY 10/04/23 [History] Metoprolol Tartrate [Lopressor] 12.5 mg PO BID 10/04/23 [History] Pantoprazole [Protonix] 40 mg PO DAILY 10/04/23 [History] Pnv,Calcium 72/Iron/Folic Acid [Westab Plus Tablet] 1 tab PO DAILY 10/04/23 [History] Follow up Appointment(s)/Referral(s): Dayana Rouse MD [Primary Care Provider] - 1-2 days Patient Instructions/Handouts: Weakness (DC), Encephalopathy (DC) Activity/Diet/Wound Care/Special Instructions: Please see a neurologist. You may need to get an MRI. Discharge Disposition: HOME SELF-CARE
--- NOTE | 2023-10-05 13:06 | P.PN ---
Subjective Progress Note Date: 10/05/23 I am following-up with patient and she feels back to baseline. Has has old ptosis of left eyes from her thyroid issues. Cannot obtain MRI Brain since has loop recorder. Objective - Vital Signs Vital signs: Vital Signs Temp 97.7 F 10/05/23 07:00 Pulse 60 10/05/23 09:56 Resp 18 10/05/23 07:00 BP 104/61 10/05/23 09:56 Pulse Ox 96 10/05/23 07:00 FiO2 Intake & Output 10/04/23 10/05/23 10/05/23 18:59 06:59 18:59 Intake Total 718 Balance 718 Intake: Intake, IV Titration 600 Amount Sodium Chloride 0.9% 1, 600 000 ml @ 75 mls/hr IV . [id number] LOUIE Rx#:[id number] Oral 118 Other: # Voids 3 - Exam GENERAL: The patient is sitting up in bed and is not in acute distress. NEUROLOGICAL: Higher mental function: The patient is awake, alert, oriented to self, place and time. Patient is following commands. No aphasia and no neglect. Cranial nerves: The pupils are round, equal and reactive to light and accommodation. Has ptosis of left eye (old). Visual bernal are full to confrontation throughout. Extraocular movement is intact no nystagmus is noted. Facial sensation is normal to touch throughout. The facial strength is normal throughout. Hearing is normal bilaterally to hand rub. Tongue is midline and moved [id number] without any difficulty. No dysarthria is noted. Shoulder shrug is normal bilaterally. Motor: The strength is 5 over 5 throughout. Normal tone and bulk. Cerebellum: Normal finger to nose heel to damon bilaterally. Sensation: Sensation is normal to touch throughout. Reflexes (right/left): 2+ throughout. Plantars are downgoing bilaterally. Some of the workup during his hospital visit consisted of: CBC with differential is unremarkable Chemistry panel seems unremarkable TSH is 3.70. Vitamin B12: 363 Ammonia <9 Folate: 7.20 Plama lactic acid vein: 1.1 UDS is positive for amphetamine and marijuana. CT of the head is reported as no acute hemorrhage, hydrocephalus or mass effect. I personally reviewed the CT and agree with the report. Routine EEG is normal. - Labs CBC & Chem 7: 10/04/23 01:02 10/04/23 01:02 Assessment and Plan Assessment: This is a 48-year-old woman who presented emergency department because of confusion, bilateral jaw numbness, blurry vision, generalized weakness for the last 1 day but states having generalized weakness for the last 1 week. She feels she is under stress and she notified the nurse that she lost custody of her grandchild. She states she has history of MS early onset about 15 years ago and has not followed up with a neurologist within 5 years. Transient episode of confusion with jaw numbness blurry vision and generalized weakness unsure exactly etiology if it's central versus psychiatric vs ?thyroid issues. CT head is negative. Routine EEG is normal. TSH is normal. Reported MS about 15 years ago that early onset but has not followed up with a neurologist for at least 5 years and is not on disease modifying therapy POTS syndrome Graves' disease status post thyroidectomy on Synthroid. TSH is unremarkable Bipolar Plan: Cannot obtain MRI Brain since has loop recorder. Recommend outpatient MRI Brain and this is to be coordinated by neurologist or primary team as outpatient. She has slight low normal B-12, folate and recommend repeating levels as outpatient within 4-6 weeks and if deficient or borderline low recommend supplementation. Notified the patient to follow-up with a neurologist as an outpatient regarding her history of MS will defer further neurological workup as well as the disease modifying therapy as an outpatient neurologist. Recommend follow-up with a art rologist within 1-2 weeks as an outpatient. PT and OT are consulted We'll defer the rest of the medical management to primary team The plan was discussed with the patient and primary attending There is no further neurological work-up. Time with Patient: Less than 30
== END 2023-10-05 12:15 | disposition home or self-care (01) ==
LOC: EC 00:14 → 6NMEDSUR 03:17
PROVIDERS: ADMIT Internal Medicine; ATTEND Internal Medicine
DX: G93.41 Metabolic encephalopathy (principal); R53.1 Weakness; F31.9 Bipolar disorder, unspecified; E05.00 Thyrotoxicosis with diffuse goiter without thyrotoxic crisis or storm; E89.0 Postprocedural hypothyroidism; G90.A Postural orthostatic tachycardia syndrome [POTS]; J45.909 Unspecified asthma, uncomplicated; F41.9 Anxiety disorder, unspecified; F90.9 Attention-deficit hyperactivity disorder, unspecified type; G35 Multiple sclerosis; M06.9 Rheumatoid arthritis, unspecified; F17.210 Nicotine dependence, cigarettes, uncomplicated; F17.290 Nicotine dependence, other tobacco product, uncomplicated; Z20.822 Contact with and (suspected) exposure to COVID-19; Z79.890 Hormone replacement therapy; Z79.899 Other long term (current) drug therapy; Z88.1 Allergy status to other antibiotic agents
CPT/HCPCS: 96361 ×3; 96360; 99285; 36415; 94640 ×3; 95816; 93005; 80053; 82607; 82140; 82746; 83605; 83735; 84443; 84484; 85025; 85610; 85730; 81001; 80306; 87636; 71046; 70450; G0378 ×2; G0480; 80320

== ENCOUNTER 2023-11-10 15:52 | Emergency (ER) | payer MEDICARE, OTHER ==
[2023-11-10 17:06] LABS: Basophils % (A) 1 %; Eosinophils # (A) 0.2 k/uL (0-0.7); Eosinophils % (A) 2 %; HGB 14.4 gm/dL (11.4-16.0); Lymphocytes # (A) 3.4 k/uL (1.0-4.8); Lymphocytes % (A) 39 %; MCH 30.3 pg (25.0-35.0); MCHC 32.8 g/dL (31.0-37.0); MCV 92.3 fL (80.0-100.0); Mean Platelet Volume 6.9; Monocytes # (A) 0.4 k/uL (0-1.0); Monocytes % (A) 4 %; Neutrophils # (A) 4.6 k/uL (1.3-7.7); Neutrophils % (A) 53 %; Platelet Count 361 k/uL (150-450); RBC 4.76 m/uL (3.80-5.40); WBC 8.8 k/uL (3.8-10.6)
[2023-11-10 17:21] LABS: ALT 13 U/L (4-34); AST 18 U/L (14-36); African American GFR (CKD) >90 (>60 ml/min/1.73 sqM); Albumin 4.1 g/dL (3.5-5.0); Alkaline Phosphatase 88 U/L (38-126); Amylase 51 U/L (30-110); Anion Gap 3 mmol/L; Blood Urea Nitrogen 14 mg/dL (7-17); Calcium 8.8 mg/dL (8.4-10.2); Carbon Dioxide 28 mmol/L (22-30); Chloride 107 mmol/L (98-107); Glucose 95 mg/dL (74-99); Lipase 121 U/L (23-300); Magnesium 2.1 mg/dL (1.6-2.3); Non-African American GFR(CKD) >90 (>60 ml/min/1.73 sqM); Potassium 4.1 mmol/L (3.5-5.1); Sodium 138 mmol/L (137-145); Total Bilirubin 0.3 mg/dL (0.2-1.3); Total Protein 6.8 g/dL (6.3-8.2)
[2023-11-10 17:32] LABS: INR 0.8 (<1.2); Partial Thromboplastin Time 23.9 sec (22.0-30.0); Prothrombin Time 9.5 sec (10.0-12.5)
--- NOTE | 2023-11-10 17:42 | XR ---
EXAMINATION: XR chest 2V: 11/10/2023 5:36 PM CLINICAL INDICATION: dysrhythmia TECHNIQUE: Departmental protocol COMPARISON: CXR 10/04/2023 FINDINGS: The lungs are clear. The pleural spaces are negative. Cardiac conduction device noted. The cardiac silhouette is not enlarged. The remainder of the mediast inal silhouette is unremarkable. The skeletal structures and soft tissues are negative for acute findings. IMPRESSION: No acute radiographic process.
--- NOTE | 2023-11-10 18:08 | ED ---
Arrhythmia/Palpitations HPI - General Chief Complaint: Arrhythmia/Palpitations Stated Complaint: Low heart rate, chest pain, vomiting Time Seen by Provider: 11/10/23 17:35 Source: patient, RN notes reviewed, old records reviewed Mode of arrival: ambulatory Limitations: no limitations - History of Present Illness Initial Comments: This is a 48-year-old female with change in heart rate abdominal pain abdominal cramping palpitations positive nausea no vomiting concern for chest pain. Patient is atrociously context no history of similar symptoms. Patient still feels her heart beating in her chest. Patient is no medical history takes no medications denies drugs or alcohol MD Complaint: rapid heart beat, "heart racing", palpitations -: hour(s) Associated Symptoms: chest pain, other Treatments Prior to Arrival: other (0) - Related Data Home Medications Medication Instructions Recorded Confirmed Albuterol Sulfate [Ventolin HFA] 2 puff INHALATION RT-Q4H PRN 09/08/22 10/04/23 lamoTRIgine 150 mg PO DAILY 09/10/22 10/04/23 Dextroamphetamine/Amphetamine 30 mg PO BID 10/04/23 10/04/23 [Adderall] Ibuprofen [Motrin] 800 mg PO TID PRN 10/04/23 10/04/23 Levothyroxine Sodium [Synthroid] 137 mcg PO DAILY 10/04/23 10/04/23 Metoprolol Tartrate [Lopressor] 12.5 mg PO BID 10/04/23 10/04/23 Pantoprazole [Protonix] 40 mg PO DAILY 10/04/23 10/04/23 Pnv,Calcium 72/Iron/Folic Acid 1 tab PO DAILY 10/04/23 10/04/23 [Westab Plus Tablet] Allergies Allergy/AdvReac Type Severity Reaction Status Date / Time adhesive tape Allergy Unknown Verified 11/10/23 16:26 bacitracin Allergy Unknown Verified 11/10/23 16:26 [From Neosporin ([id number])] bee venom protein (honey bee) Allergy Swelling Verified 11/10/23 16:26 neomycin Allergy Rash/Hives Verified 11/10/23 16:26 [From Neosporin ([id number])] polymyxin B Allergy Rash/Hives Verified 11/10/23 16:26 [From Neosporin ([id number])] Review of Systems ROS Statement: Those systems with pertinent positive or pertinent negative responses have been documented in the HPI. ROS Other: All systems not noted in ROS Statement are negative. Past Medical History Past Medical History: Asthma, Osteoarthritis (OA), Thyroid Disorder Additional Past Medical History / Comment(s): kidney stones, DIVERTICULITIS. 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 POTS History of Any Multi-Drug Resistant Organisms: None Reported Past Surgical History: Bariatric Surgery, Section, Orthopedic Surgery, Tonsillectomy, Uterine Ablation Additional Past Surgical History / Comment(s): eye surgery, rt foot, gastric sleeve 12/14/22 Past Anesthesia/Blood Transfusion Reactions: Postoperative Nausea & Vomiting (PONV) Past Psychological History: Anxiety, Depression Smoking Status: Former smoker, Vaper Past Alcohol Use History: None Reported Past Drug Use History: None Reported - Past Family History Father Family Medical History: Congestive Heart Failure (CHF) Mother Family Medical History: Rheumatoid Arthritis (RA), Thyroid Disorder Sister(s) Family Medical History: Cancer Additional Family Medical History / Comment(s): uterine General Exam Limitations: no limitations General appearance: anxious Head exam: Present: atraumatic, normocephalic, normal inspection Eye exam: Present: normal appearance, PERRL, EOMI. Absent: scleral icterus, conjunctival injection, periorbital swelling ENT exam: Present: normal exam, mucous membranes moist Neck exam: Present: normal inspection. Absent: tenderness, meningismus, lymphadenopathy Respiratory exam: Present: normal lung sounds bilaterally. Absent: respiratory distress, wheezes, rales, rhonchi, stridor Cardiovascular Exam: Present: regular rate, normal rhythm, normal heart sounds. Absent: systolic murmur, diastolic murmur, rubs, gallop, clicks GI/Abdominal exam: Present: soft, normal bowel sounds. Absent: distended, tenderness, guarding, rebound, rigid Extremities exam: Present: normal inspection, full ROM, normal capillary refill. Absent: tenderness, pedal edema, joint swelling, calf tenderness Back exam: Present: normal inspection Neurological exam: Present: alert, oriented X3, CN II-XII intact Psychiatric exam: Present: normal affect, normal mood Skin exam: Present: warm, dry, intact, normal color. Absent: rash Course Vital Signs 11/10/23 11/10/23 11/10/23 16:20 18:11 20:00 Temperature 98.5 F 98.2 F Pulse Rate 90 78 72 Respiratory 18 16 18 Rate Blood Pressure 120/78 115/68 105/70 O2 Sat by Pulse 99 96 97 Oximetry - Reevaluation(s) Reevaluation #1: Medical records reviewed Reevaluation #2: Patient symptoms unchanged Reevaluation #3: Patient informed of results and questions answered Reevaluation #4: Was pt. sent in by a medical professional or institution (, ANNA[facility]LLA, WEBFED OFFSET PRESS OPERATOR, urgent care, hospital, or skilled nursing...) When possible be specific @ -no Did you speak to anyone other than the patient for history (EMS, parent, family, police, friend...)? What history was obtained from this source @ -no Did you review nursing and triage notes (agree or disagree)? Why? @ -agree Are old charts reviewed (outside hosp., previous admission, EMS record, old EKG, old radiological studies, urgent care reports/EKG's, skilled nursing records)? Report findings @ -yes Differential Diagnosis (chest pain, altered mental status, abdominal pain women, abdominal pain men, vaginal bleeding, weakness, fever, dyspnea, syncope, headach e, dizziness, GI bleed, back pain, seizure, CVA, palpatations, mental health, musculoskeletal)? @ -prior EKG interpreted by me (3pts min.). @ -yes X-rays interpreted by me (1pt min.). @ -yes negative for acute disease CT interpreted by me (1pt min.). @ -Yes negative for acute disease U/S interpreted by me (1pt. min.). @ -no What testing was considered but not performed or refused? (CT, X-rays, U/S, labs)? Why? @ -none What meds were considered but not given or refused? Why? @ -none Did you discuss the management of the patient with other professionals (professionals i.e. ANNABELLA Jackson, WEBFED OFFSET PRESS OPERATOR, lab, RT, psych nurse, psychiatric social worker supervisor, feed mill supervisor, teacher, loan workout officer, case work aide)? Give summary @ -no Was smoking cessation discussed for >3mins.? @ -no Was critical care preformed (if so, how long)? @ -no Were there social determinants of health that impacted care today? How? (Homelessness, low income, unemployed, alcoholism, drug addiction, transportation, low edu. Level, literacy, decrease access to med. care, usp, rehab)? @ -none Was there de-escalation of care discussed even if they declined (Discuss DNR or withdrawal of care, Hospice)? DNR status @ -no What co-morbidities impacted this encounter? (DM, HTN, Smoking, COPD, CAD, Cancer, CVA, ARF, Chemo, Hep., AIDS, mental health diagnosis, sleep apnea, morbid obesity)? @ -none Was patient admitted / discharged? Hospital course, mention meds given and route, prescriptions, significant lab abnormalities, going to OR and other pe rtinent info. @ - 48 female to the ER for evaluation today. Patient presents today with palpable possible palpitations or arrhythmia, patient has no acute findings here in the ER and can be discharged home Discharge Undiagnosed new problem with uncertain prognosis? @ -no Drug Therapy requiring intensive monitoring for toxicity (Heparin, Nitro, Insulin, Cardizem)? @ -no Were any procedures done? @ -no Diagnosis/symptom? @ -Palpitations abdominal pain and chest pain Acute, or Chronic, or Acute on Chronic? @ -Acute Uncomplicated (without systemic symptoms) or Complicated (systemic symptoms)? @ -Complicated Side effects of treatment? @ -no Exacerbation, Progression, or Severe Exacerbation? @ -exacerbation Poses a threat to life or bodily function? How? (Chest pain, USA, VT, pneumonia, PE, COPD, DKA, ARF, appy, cholecystitis, CVA, Diverticulitis, Homicidal, Suicidal, threat to staff... and all critical care pts) @ -yes with significant arrhythmia Reevaluation #5: Differential Palpitations Ventricular arrhythmias, atrial arrhythmias, myocardial infarction, anemia, thyrotoxicosis, electrolyte imbalance, hypokalemia, pulmonary embolism, pulmonary disease, drugs, alcohol, anxiety, stress.... This is not meant to be an all-inclusive list. EKG Findings - EKG Comments: EKG Findings:: EKG is sinus 69 SD 124 QRS 83 QTc 407 - EKG Results: EKG: interpreted by [facility]CU[facility] Medical Decision Making - Medical Decision Making 48 female to the ER for evaluation today. Patient presents today with palpable possible palpitations or arrhythmia, patient has no acute findings here in the ER and can be discharged home - Lab Data Result diagrams: 11/10/23 16:46 02/08/24 16:46 Lab Results 11/10/23 11/10/23 11/10/23 Range/Units 16:46 16:46 16:46 WBC 8.8 (3.8-10.6) k/uL RBC 4.76 (3.80-5.40) m/uL Hgb 14.4 (11.4-16.0) gm/dL Hct 44.0 (34.0-46.0) % MCV 92.3 (80.0-100.0) fL MCH 30.3 (25.0-35.0) pg MCHC 32.8 (31.0-37.0) g/dL RDW 13.0 (11.5-15.5) % Plt Count 361 (150-450) k/uL MPV 6.9 Neutrophils % 53 % Lymphocytes % 39 % Monocytes % 4 % Eosinophils % 2 % Basophils % 1 % Neutrophils # 4.6 (1.3-7.7) k/uL Lymphocytes # 3.4 (1.0-4.8) k/uL Monocytes # 0.4 (0-1.0) k/uL Eosinophils # 0.2 (0-0.7) k/uL Basophils # 0.0 (0-0.2) k/uL PT 9.5 L (10.0-12.5) sec INR 0.8 (<1.2) APTT 23.9 (22.0-30.0) sec Sodium 138 (137-145) mmol/L Potassium 4.1 (3.5-5.1) mmol/L Chloride 107 (98-107) mmol/L Carbon Dioxide 28 (22-30) mmol/L Anion Gap 3 mmol/L BUN 14 (7-17) mg/dL Creatinine 0.58 (0.52-1.04) mg/dL Est GFR (CKD-EPI)AfAm >90 (>60 ml/min/1.73 sqM) Est GFR (CKD-EPI)NonAf >90 (>60 ml/min/1.73 sqM) Glucose 95 (74-99) mg/dL Calcium 8.8 (8.4-10.2) mg/dL Magnesium 2.1 (1.6-2.3) mg/dL Total Bilirubin 0.3 (0.2-1.3) mg/dL AST 18 (14-36) U/L ALT 13 (4-34) U/L Alkaline Phosphatase 88 (38-126) U/L Troponin I (0.000-0.034) ng/mL Total Protein 6.8 (6.3-8.2) g/dL Albumin 4.1 (3.5-5.0) g/dL Amylase 51 (30-110) U/L Lipase 121 (23-300) U/L 11/10/23 Range/Units 16:46 WBC (3.8-10.6) k/uL RBC (3.80-5.40) m/uL Hgb (11.4-16.0) gm/dL Hct (34.0-46.0) % MCV (80.0-100.0) fL MCH (25.0-35.0) pg MCHC (31.0-37.0) g/dL RDW (11.5-15.5) % Plt Count (150-450) k/uL MPV Neutrophils % % Lymphocytes % % Monocytes % % Eosinophils % % Basophils % % Neutrophils # (1.3-7.7) k/uL Lymphocytes # (1.0-4.8) k/uL Monocytes # (0-1.0) k/uL Eosinophils # (0-0.7) k/uL Basophils # (0-0.2) k/uL PT (10.0-12.5) sec INR (<1.2) APTT (22.0-30.0) sec Sodium (137-145) mmol/L Potassium (3.5-5.1) mmol/L Chloride (98-107) mmol/L Carbon Dioxide (22-30) mmol/L Anion Gap mmol/L BUN (7-17) mg/dL Creatinine (0.52-1.04) mg/dL Est GFR (CKD-EPI)AfAm (>60 ml/min/1.73 sqM) Est GFR (CKD-EPI)NonAf (>60 ml/min/1.73 sqM) Glucose (74-99) mg/dL Calcium (8.4-10.2) mg/dL Magnesium (1.6-2.3) mg/dL Total Bilirubin (0.2-1.3) mg/dL AST (14-36) U/L ALT (4-34) U/L Alkaline Phosphatase (38-126) U/L Troponin I <0.012 (0.000-0.034) ng/mL Total Protein (6.3-8.2) g/dL Albumin (3.5-5.0) g/dL Amylase (30-110) U/L Lipase (23-300) U/L - EKG Data -: EKG Interpreted by Me - Radiology Data Radiology results: report reviewed (Chest x-ray CT abdomen pelvis negative for acute disease), image reviewed Disposition Clinical Impression: Tachycardia, Palpitations, Abdominal pain Disposition: HOME SELF-CARE Condition: Good Instructions (If sedation given, give patient instructions): Abdominal Pain (ED) Is patient prescribed a controlled substance at d/c from ED?: No Referrals: None,Stated [Primary Care Provider] - 1-2 days Time of Disposition: 19:35
[2023-11-10] MEDS: SODIUM CHLORIDE 0.9% 1,000 ML IV STA (18:20)
[2023-11-10] MEDS: ONDANSETRON 4 MG/2 ML VIAL IVP STA (18:21)
[2023-11-10] MEDS: HYDROmorphone 1 MG/ML 1 ML SYRINGE IVP STA (18:22)
--- NOTE | 2023-11-10 19:28 | CT ---
EXAMINATION TYPE: CT abdomen pelvis w con DATE OF EXAM: 11/10/2023 HISTORY: Epigastric sternal pain that radiates towards right side x [address] DLP: 797.5mGycm Automated Exposure Control for Dose Reduction was Utilized. CONTRAST:CT scan of the abdomen and pelvis is performed with IV Contrast, patient injected with 100 m L of Isovue 300. COMPARISON: CT 05/28/2022 FINDINGS: LUNG BASES: No acute findings. LIVER/GB: No significant abnormality is appreciated. PANCREAS: Unremarkable. SPLEEN: Unremarkable. ADRENALS: No findings. KIDNEYS: No acute findings. BOWEL: No bowel dilation or inflammatory change. Colonic stool volume is normal. PERITONEAL CAVITY: No fluid or pneumoperitoneum. ANTERIOR ABDOMINAL WALL: Intact. UTERUS/ADNEXA: No gross abnormality seen. LYMPH NODES: No greater than 1cm abdominal or pelvic lymph nodes are appreciated. OSSEOUS STRUCTURES: No significant abnormality is seen. OTHER: No acute vascular findings. IMPRESSION: No significant acute finding is seen to account for patient's clinical symptoms.
[2023-11-10 20:13] VITALS: BP 105/70; PULSE 72; RESP 18; TEMP 98.2
== END 2023-11-10 20:00 | disposition home or self-care (01) ==
LOC: EC 15:52
DX: R00.2 Palpitations (principal); R00.0 Tachycardia, unspecified; R10.9 Unspecified abdominal pain; J45.909 Unspecified asthma, uncomplicated; E07.9 Disorder of thyroid, unspecified; Z79.890 Hormone replacement therapy; F17.290 Nicotine dependence, other tobacco product, uncomplicated; Z79.899 Other long term (current) drug therapy; Z91.030 Bee allergy status; Z88.8 Allergy status to other drugs, medicaments and biological substances; Z88.1 Allergy status to other antibiotic agents
CPT/HCPCS: 99285 ×2; 96374 ×2; 96375 ×2; 96361 ×3; 36415; 93005; 80053; 82150; 83690; 83735; 84484; 85025; 85610; 85730; 71046; 74177; J2405; J1170; Q9967

== ENCOUNTER 2024-01-27 14:56 | Emergency (ER) | payer MEDICARE, OTHER ==
--- NOTE | 2024-01-27 15:14 | ED ---
Weakness HPI - General Source: patient, RN notes reviewed - History of Present Illness MD Complaint: generalized weakness <Santa Petersen - Last Filed: 01/27/24 15:11> <Cem Multani - Last Filed: 01/27/24 20:57> - General Stated complaint: Dehydration Time Seen by Provider: 01/27/24 15:10 - History of Present Illness Initial comments: Quick noteis a 48-year-old female with a past medical history of Graves disease and Crohn's who presents emergency department chief complaint of nausea/vomiting and dehydration. Patient states symptoms started this morning. Endorses feelings of hot and cold, no reported fevers. (Santa Petersen) Dictation was produced using [employer] dictation software. please excuse any grammatical, word or spelling errors. Chief Complaint: 48-year-old female presents emergency department for chief complaint of dehydration History of Present Illness: Patient is 48-year-old female presents to the emergency department for chief complaint of dehydration. Patient states that she feels nauseated and has not been drinking as much water as she should. Patient feeling weak generally. She has extensive history of autoimmune disease. Patient denies any vomiting. H significant other at the bedside states that patient has not urinated for several hours. Patient has an abdominal pain. Denies any diarrhea. Patient has no pain complaints. Patient reports significant autoimmune diseases. The ROS documented in this emergency department record has been reviewed and confirmed by me. Those systems with pertinent positive or negative responses have been documented in the HPI. All other systems are other negative and/or noncontributory. (Cem Multani) - Related Data Home Medications Medication Instructions Recorded Confirmed Albuterol Sulfate [Ventolin HFA] 2 puff INHALATION RT-Q4H PRN 09/08/22 01/27/24 lamoTRIgine 150 mg PO DAILY 09/10/22 01/27/24 Dextroamphetamine/Amphetamine 30 mg PO BID 10/04/23 01/27/24 [Adderall] Ibuprofen [Motrin] 800 mg PO TID PRN 10/04/23 01/27/24 Pnv,Calcium 72/Iron/Folic Acid 1 tab PO DAILY 10/04/23 01/27/24 [Westab Plus Tablet] Levothyroxine Sodium [Synthroid] 125 mcg PO DAILY 01/27/24 01/27/24 cycloSPORINE [Restasis Multidose] 1 drop BOTH EYES BID 01/27/24 01/27/24 Allergies Allergy/AdvReac Type Severity Reaction Status Date / Time adhesive tape Allergy Rash/Hives Verified 01/27/24 17:56 bacitracin Allergy Rash/Hives Verified 01/27/24 17:56 [From Neosporin ([id number])] bee venom protein (honey bee) Allergy Swelling Verified 01/27/24 17:56 neomycin Allergy Rash/Hives Verified 01/27/24 17:56 [From Neosporin ([id number])] polymyxin B Allergy Rash/Hives Verified 01/27/24 17:56 [From Neosporin ([id number])] ondansetron [From Zofran] AdvReac Intermediate Rash/Hives Verified 01/27/24 19:04 Review of Systems ROS Other: All systems not noted in ROS Statement are negative. <Santa Petersen - Last Filed: 01/27/24 15:11> ROS Other: All systems not noted in ROS Statement are negative. <Cem Multani - Last Filed: 01/27/24 20:57> ROS Statement: Those systems with pertinent positive or pertinent negative responses have been documented in the HPI. Past Medical History Past Medical History: Asthma, Osteoarthritis (OA), Thyroid Disorder Additional Past Medical History / Comment(s): kidney stones, DIVERTICULITIS. 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 POTS History of Any Multi-Drug Resistant Organisms: None Reported Past Surgical History: Bariatric Surgery, Section, Orthopedic Surgery, Tonsillectomy, Uterine Ablation Additional Past Surgical History / Comment(s): eye surgery, rt foot, gastric sleeve 12/14/22 Past Anesthesia/Blood Transfusion Reactions: Postoperative Nausea & Vomiting (PONV) Past Psychological History: Anxiety, Depression Smoking Status: Former smoker, Vaper Past Alcohol Use History: None Reported Past Drug Use History: None Reported - Past Family History Father Family Medical History: Congestive Heart Failure (CHF) Mother Family Medical History: Rheumatoid Arthritis (RA), Thyroid Disorder Sister(s) Family Medical History: Cancer Additional Family Medical History / Comment(s): uterine <Santa Petersen - Last Filed: 01/27/24 15:11> General Exam <Santa Petersen - Last Filed: 01/27/24 15:11> <Cem Multani - Last Filed: 01/27/24 20:57> - General Exam Comments Initial Comments: Visual Physical Exam Vital signs reviewed General: Well-appearing, nontoxic, no acute distress. Head: Normocephalic, atraumatic Eyes: PERRLA, EOMI ENT: Airway patent Chest: Nonlabored breathing Skin: No visual rash, normal skin tone Neuro: Alert and oriented 3 Musculoskeletal: No gross abnormalities (Santa Petersen) PHYSICAL EXAM: General Impression: Alert and oriented x3, not in acute distress HEENT: Normocephalic atraumatic, extra-ocular movements intact, pupils equal and reactive to light bilaterally, mucous membranes moist. Cardiovascular: Heart regular rate and rhythm Chest: Able to complete full sentences, no retractions, no tachypnea Abdomen: abdomen soft, non-tender, non-distended, no organomegaly Musculoskeletal: Pulses present and equal in all extremities, no peripheral edema Motor: no focal deficits noted Neurological: CN II-XII grossly intact, no focal motor or sensory deficits noted Skin: Intact with no visualized rashes Psych: Normal affect and mood (Cem Multani) Course Vital Signs 01/27/24 01/27/24 15:16 18:53 Temperature 96.2 F L Pulse Rate 47 L 45 L Respiratory 18 16 Rate Blood Pressure 117/60 96/58 O2 Sat by Pulse 99 97 Oximetry Medical Decision Making <Santa Petersen - Last Filed: 01/27/24 15:11> - Lab Data Result diagrams: 01/27/24 15:31 01/27/24 15:31 <Cem Multani - Last Filed: 01/27/24 20:57> - Medical Decision Making I completed the quick note portion of this chart signed Santa Petersen PA-C (Santa Petersen) Was pt. sent in by a medical professional or institution (ANNABELLA Jackson, HIM CODER, urgent care, hospital, or group home...) When possible be specific @ -No Did you speak to anyone other than the patient for history (EMS, parent, family, police, friend...)? What history was obtained from this source @ -No Did you review nursing and triage notes (agree or disagree)? Why? @ -I reviewed and agree with nursing and triage notes Were old charts reviewed (outside hosp., previous admission, EMS record, old EKG, old radiological studies, urgent care reports/EKG's, group home records)? Report findings @ -No old charts were reviewed Differential Diagnosis (chest pain, altered mental status, abdominal pain women, abdominal pain men, vaginal bleeding, musculoskeletal, weakness, fever, dyspnea, syncope, headache, dizziness, GI bleed, back pain, seizure, CVA, palpatations, mental health)? @ -Differential Weakness: Hypoglycemia, shock, sepsis, hyponatremia, anemia, infection, [place], ETOH, adverse medicine reaction, overdose, stroke, this is not meant to be an all-inclusive list. EKG interpreted by me (3pts min.). @ -None done X-rays interpreted by me (1pt min.). @ -None done CT interpreted by me (1pt min.). @ -None done U/S interpreted by me (1pt. min.). @ -None done What testing was considered but not performed or refused? (CT, X-rays, U/S, labs)? Why? @ -None What meds were considered but not given or refused? Why? @ -None Did you discuss the management of the patient with other professionals (professionals i.e. , PA, HIM CODER, lab, RT, psych nurse, social science research assistant, double end sewer, teacher, adult parole officer, case management assistant)? Give summary @ -No Was smoking cessation discussed for >3mins.? @ -No Was critical care preformed (if so, how long)? @ -No Were there social determinants of health that impacted care today? How? (Homelessness, low income, unemployed, alcoholism, drug addiction, transportation, low edu. Level, literacy, decrease access to med. care, [facility], rehab)? @ -No Was there de-escalation of care discussed even if they declined (Discuss DNR or withdrawal of care, Hospice)? DNR status @ -No What co-morbidities impacted this encounter? (DM, HTN, Smoking, COPD, CAD, Cancer, CVA, ARF, Chemo, Hep., AIDS, mental health diagnosis, sleep apnea, morbid obesity)? @ -None Was patient admitted / discharged? Hospital course, mention meds given and route, prescriptions, significant lab abnormalities, going to OR and other pertinent info. @ -48-year-old well-appearing female presents to the emergency department for reported chief complaint of dehydration. Vital signs upon arrival are within acceptable limits. Patient no acute distress. Physical examination is benign. Laboratory evaluation is unremarkable. Patient given IV fluids observed in emergency department for couple hours. Patient reevaluated at 8:57 PM found in stable medical addition. Patient agreeable to discharge. Undiagnosed new problem with uncertain prognosis? @ -No Drug Therapy requiring intensive monitoring for toxicity (Heparin, Nitro, Insulin, Cardizem)? @ -No Were any procedures done? @ -No Diagnosis/symptom? Acute, or Chronic, or Acute on Chronic? Uncomplicated (without systemic symptoms) or Complicated (systemic symptoms)? @ -Generalized weakness Side effects of treatment? @ -No Exacerbation, Progression, or Severe Exacerbation? @ -No Poses a threat to life or bodily function? How? (Chest pain, [place], [place], pneumonia, PE, COPD, DKA, ARF, appy, cholecystitis, CVA, Diverticulitis, Homicidal, Suicidal, threat to staff... and all critical care pts) @ -No (Cem Multani) - Lab Data Lab Results 01/27/24 01/27/24 01/27/24 Range/Units 15:31 15:31 15:31 WBC 10.5 (3.8-10.6) k/uL RBC 4.82 (3.80-5.40) m/uL Hgb 14.4 (11.4-16.0) gm/dL Hct 45.6 (34.0-46.0) % MCV 94.7 (80.0-100.0) fL MCH 29.9 (25.0-35.0) pg MCHC 31.6 (31.0-37.0) g/dL RDW 13.3 (11.5-15.5) % Plt Count 335 (150-450) k/uL MPV 7.1 Neutrophils % 74 % Lymphocytes % 19 % Monocytes % 4 % Eosinophils % 1 % Basophils % 1 % Neutrophils # 7.8 H (1.3-7.7) k/uL Lymphocytes # 2.0 (1.0-4.8) k/uL Monocytes # 0.4 (0-1.0) k/uL Eosinophils # 0.1 (0-0.7) k/uL Basophils # 0.1 (0-0.2) k/uL Sodium 139 (137-145) mmol/L Potassium 4.9 (3.5-5.1) mmol/L Chloride 109 H (98-107) mmol/L Carbon Dioxide 24 (22-30) mmol/L Anion Gap 6 mmol/L BUN 21 H (7-17) mg/dL Creatinine 0.62 (0.52-1.04) mg/dL Est GFR (CKD-EPI)AfAm >90 (>60 ml/min/1.73 sqM) Est GFR (CKD-EPI)NonAf >90 (>60 ml/min/1.73 sqM) Glucose 105 H (74-99) mg/dL Calcium 9.0 (8.4-10.2) mg/dL Magnesium 2.0 (1.6-2.3) mg/dL Total Bilirubin 0.5 (0.2-1.3) mg/dL AST 20 (14-36) U/L ALT 15 (4-34) U/L Alkaline Phosphatase 77 (38-126) U/L Troponin I <0.012 (0.000-0.034) ng/mL Total Protein 7.4 (6.3-8.2) g/dL Albumin 4.7 (3.5-5.0) g/dL Amylase 46 (30-110) U/L Lipase 89 (23-300) U/L TSH 2.650 (0.465-4.680) mIU/L Urine Color Urine Appearance (Clear) Urine pH (5.0-8.0) Ur Specific [place] (1.001-1.035) Urine Protein (Negative) Urine Glucose (UA) (Negative) Urine Ketones (Negative) Urine Blood (Negative) Urine Nitrite (Negative) Urine Bilirubin (Negative) Urine Urobilinogen (<2.0) mg/dL Ur Leukocyte Esterase (Negative) Urine RBC (0-5) /hpf Urine WBC (0-5) /hpf Ur Squamous Epith Cells (0-4) /hpf Hyaline Casts (0-2) /lpf Urine Mucus (None) /hpf 01/27/24 Range/Units 20:05 WBC (3.8-10.6) k/uL RBC (3.80-5.40) m/uL Hgb (11.4-16.0) gm/dL Hct (34.0-46.0) % MCV (80.0-100.0) fL MCH (25.0-35.0) pg MCHC (31.0-37.0) g/dL RDW (11.5-15.5) % Plt Count (150-450) k/uL MPV Neutrophils % % Lymphocytes % % Monocytes % % Eosinophils % % Basophils % % Neutrophils # (1.3-7.7) k/uL Lymphocytes # (1.0-4.8) k/uL Monocytes # (0-1.0) k/uL Eosinophils # (0-0.7) k/uL Basophils # (0-0.2) k/uL Sodium (137-145) mmol/L Potassium (3.5-5.1) mmol/L Chloride (98-107) mmol/L Carbon Dioxide (22-30) mmol/L Anion Gap mmol/L BUN (7-17) mg/dL Creatinine (0.52-1.04) mg/dL Est GFR (CKD-EPI)AfAm (>60 ml/min/1.73 sqM) Est GFR (CKD-EPI)NonAf (>60 ml/min/1.73 sqM) Glucose (74-99) mg/dL Calcium (8.4-10.2) mg/dL Magnesium (1.6-2.3) mg/dL Total Bilirubin (0.2-1.3) mg/dL AST (14-36) U/L ALT (4-34) U/L Alkaline Phosphatase (38-126) U/L Troponin I (0.000-0.034) ng/mL Total Protein (6.3-8.2) g/dL Albumin (3.5-5.0) g/dL Amylase (30-110) U/L Lipase (23-300) U/L TSH (0.465-4.680) mIU/L Urine Color Colorless Urine Appearance Turbid H (Clear) Urine pH 5.5 (5.0-8.0) Ur Specific [place] 1.019 (1.001-1.035) Urine Protein Negative (Negative) Urine Glucose (UA) Negative (Negative) Urine Ketones 2+ H (Negative) Urine Blood Negative (Negative) Urine Nitrite Negative (Negative) Urine Bilirubin Negative (Negative) Urine Urobilinogen <2.0 (<2.0) mg/dL Ur Leukocyte Esterase Negative (Negative) Urine RBC <1 (0-5) /hpf Urine WBC 2 (0-5) /hpf Ur Squamous Epith Cells 2 (0-4) /hpf Hyaline Casts 1 (0-2) /lpf Urine Mucus Few H (None) /hpf Disposition <Santa Petersen - Last Filed: 01/27/24 15:11> Is patient prescribed a controlled substance at d/c from ED?: No Time of Disposition: 20:56 <Cem Multani - Last Filed: 01/27/24 20:57> Clinical Impression: Generalized weakness Disposition: HOME SELF-CARE Condition: Good Instructions (If sedation given, give patient instructions): Dehydration (ED) Referrals: Davon Rouse MD [Primary Care Provider] - 1-2 days
[2024-01-27 16:21] LABS: Basophils # (A) 0.1 k/uL (0-0.2); Basophils % (A) 1 %; Eosinophils # (A) 0.1 k/uL (0-0.7); Eosinophils % (A) 1 %; HCT 45.6 % (34.0-46.0); HGB 14.4 gm/dL (11.4-16.0); Lymphocytes % (A) 19 %; MCH 29.9 pg (25.0-35.0); MCHC 31.6 g/dL (31.0-37.0); MCV 94.7 fL (80.0-100.0); Mean Platelet Volume 7.1; Monocytes # (A) 0.4 k/uL (0-1.0); Monocytes % (A) 4 %; Neutrophils # (A) 7.8 k/uL (1.3-7.7); Neutrophils % (A) 74 %; Platelet Count 335 k/uL (150-450); RBC 4.82 m/uL (3.80-5.40); RDW 13.3 % (11.5-15.5); WBC 10.5 k/uL (3.8-10.6)
[2024-01-27 16:33] LABS: ALT 15 U/L (4-34); AST 20 U/L (14-36); African American GFR (CKD) >90 (>60 ml/min/1.73 sqM); Albumin 4.7 g/dL (3.5-5.0); Alkaline Phosphatase 77 U/L (38-126); Amylase 46 U/L (30-110); Anion Gap 6 mmol/L; Blood Urea Nitrogen 21 mg/dL (7-17); Carbon Dioxide 24 mmol/L (22-30); Chloride 109 mmol/L (98-107); Glucose 105 mg/dL (74-99); Lipase 89 U/L (23-300); Non-African American GFR(CKD) >90 (>60 ml/min/1.73 sqM); Potassium 4.9 mmol/L (3.5-5.1); Sodium 139 mmol/L (137-145); Total Bilirubin 0.5 mg/dL (0.2-1.3); Total Protein 7.4 g/dL (6.3-8.2)
[2024-01-27] MEDS: ONDANSETRON 4 MG/2 ML VIAL IVP STA (17:47)
[2024-01-27] MEDS: SODIUM CHLORIDE 0.9% 2,000 ML IV STA (17:48)
[2024-01-27 19:00] VITALS: RESP 16
[2024-01-27] MEDS: SODIUM CHLORIDE 0.9% 1,000 ML IV ONE (19:11)
[2024-01-27 20:24] LABS: Appearance,Urine Turbid (Clear); Bilirubin,Urine Negative (Negative); Blood,Urine Negative (Negative); Color,Urine Colorless; Glucose,Urine (UA) Negative (Negative); Hyaline Casts,Urine 1 /lpf (0-2); Leukocyte Esterase,Urine Negative (Negative); Mucus,Urine Few /hpf; Nitrite,Urine Negative (Negative); PH, Urine 5.5 (5.0-8.0); Protein,Urine Negative (Negative); RBC,Urine <1 /hpf (0-5); Specific Gravity,Urine 1.019 (1.001-1.035); Squamous Epithelial Cell,Urine 2 /hpf (0-4); Urobilinogen,Urine <2.0 mg/dL (<2.0); WBC,Urine 2 /hpf (0-5)
[2024-01-27 20:51] LABS: Ketones,Urine 2+ (Negative)
[2024-01-27 21:33] VITALS: BP 117/71; PULSE 55; TEMP 98
== END 2024-01-27 21:02 | disposition home or self-care (01) ==
LOC: EC 14:56
DX: R53.1 Weakness (principal); F17.290 Nicotine dependence, other tobacco product, uncomplicated; Z88.1 Allergy status to other antibiotic agents; Z88.8 Allergy status to other drugs, medicaments and biological substances; Z91.030 Bee allergy status; Z91.048 Other nonmedicinal substance allergy status
CPT/HCPCS: 36415; 93005; 80053; 84443; 82150; 83690; 83735; 84484; 85025; 81001; 99284; 96374; 96361 ×2; J2405

== ENCOUNTER 2024-10-19 23:45 | Emergency (ER) | payer MEDICARE ==
[2024-10-20 00:43] LABS: Basophils % (A) 0 %; Eosinophils # (A) 0.2 k/uL (0-0.7); Eosinophils % (A) 2 %; HCT 39.5 % (34.0-46.0); HGB 13.4 gm/dL (11.4-16.0); Lymphocytes # (A) 2.2 k/uL (1.0-4.8); Lymphocytes % (A) 24 %; MCH 30.4 pg (25.0-35.0); MCHC 33.8 g/dL (31.0-37.0); MCV 89.8 fL (80.0-100.0); Mean Platelet Volume 6.9; Monocytes # (A) 0.4 k/uL (0-1.0); Monocytes % (A) 5 %; Neutrophils # (A) 6.1 k/uL (1.3-7.7); Neutrophils % (A) 68 %; Platelet Count 271 k/uL (150-450); RDW 13.2 % (11.5-15.5); WBC 8.9 k/uL (3.8-10.6)
[2024-10-20 00:52] LABS: INR 0.9 (<1.2); Partial Thromboplastin Time 23.4 sec (22.0-30.0); Prothrombin Time 9.7 sec (10.0-12.5)
[2024-10-20 01:13] LABS: ALT 16 U/L (4-34); AST 20 U/L (14-36); African American GFR (CKD) >90 (>60 ml/min/1.73 sqM); Albumin 4.4 g/dL (3.5-5.0); Alkaline Phosphatase 61 U/L (38-126); Anion Gap 5 mmol/L; Blood Urea Nitrogen 15 mg/dL (7-17); Calcium 8.6 mg/dL (8.4-10.2); Carbon Dioxide 28 mmol/L (22-30); Chloride 104 mmol/L (98-107); Glucose 95 mg/dL (74-99); Non-African American GFR(CKD) 88 (>60 ml/min/1.73 sqM); Potassium 3.8 mmol/L (3.5-5.1); Sodium 137 mmol/L (137-145); Total Bilirubin 0.3 mg/dL (0.2-1.3); Total Protein 7.2 g/dL (6.3-8.2)
--- NOTE | 2024-10-20 01:22 | ED ---
Chest Pain HPI - General Chief Complaint: Chest Pain Stated Complaint: chest pain Time Seen by Provider: 10/20/24 00:57 Source: patient Mode of arrival: ambulatory - History of Present Illness Initial Comments: Patient is a 49-year-old woman who states she has episodes of "heart spells," for which she is evaluated by the cardiology department through [facility]. She states that tonight she was taking a bath when she felt weak, lightheaded, had pain to the right arm and chest pain. MD Complaint: chest pain Onset/Timin -: hour(s) Onset: during rest Pain Radiation: RUE Severity: moderate Quality: aching Consistency: constant Improves With: nothing Worsens With: nothing Treatments Prior to Arrival: none - Related Data Home Medications Medication Instructions Recorded Confirmed Albuterol Sulfate [Ventolin HFA] 2 puff INHALATION RT-Q4H PRN 09/08/22 10/25/24 lamoTRIgine 150 mg PO DAILY 09/10/22 10/25/24 Dextroamphetamine/Amphetamine 30 mg PO BID 10/04/23 10/25/24 [Adderall] Ibuprofen [Motrin] 800 mg PO TID PRN 10/04/23 10/25/24 Pnv,Calcium 72/Iron/Folic Acid 1 tab PO DAILY 10/04/23 10/25/24 [Westab Plus Tablet] Levothyroxine Sodium [Synthroid] 125 mcg PO DAILY 01/27/24 10/25/24 cycloSPORINE [Restasis Multidose] 1 drop BOTH EYES BID 01/27/24 10/25/24 Allergies Allergy/AdvReac Type Severity Reaction Status Date / Time adhesive tape Allergy Rash/Hives Verified 10/25/24 08:27 bacitracin Allergy Rash/Hives Verified 10/25/24 08:27 [From Neosporin ([id number])] bee venom protein (honey bee) Allergy Swelling Verified 10/25/24 08:27 neomycin Allergy Rash/Hives Verified 10/25/24 08:27 [From Neosporin ([id number])] polymyxin B Allergy Rash/Hives Verified 10/25/24 08:27 [From Neosporin ([id number])] ondansetron [From Zofran] AdvReac Intermediate Rash/Hives Verified 10/25/24 08:27 Review of Systems ROS Statement: Those systems with pertinent positive or pertinent negative responses have been documented in the HPI. ROS Other: All systems not noted in ROS Statement are negative. Constitutional: Reports: weakness. Denies: fever, chills Respiratory: Denies: cough, dyspnea Cardiovascular: Reports: chest pain. Denies: palpitations, orthopnea, edema, syncope Gastrointestinal: Denies: abdominal pain, nausea, vomiting, diarrhea Genitourinary: Denies: dysuria Musculoskeletal: Denies: back pain Skin: Denies: rash Neurological: Denies: headache, weakness Past Medical History Past Medical History: Asthma, Osteoarthritis (OA), Thyroid Disorder Additional Past Medical History / Comment(s): kidney stones, DIVERTICULITIS. 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 POTS History of Any Multi-Drug Resistant Organisms: None Reported Past Surgical History: Bariatric Surgery, Section, Orthopedic Surgery, Tonsillectomy, Uterine Ablation Additional Past Surgical History / Comment(s): eye surgery, rt foot, gastric sleeve 12/14/22. RIGHT TOTAL KNEE REPLACEMENT. Past Anesthesia/Blood Transfusion Reactions: Postoperative Nausea & Vomiting (PONV) Past Psychological History: Anxiety, Depression Smoking Status: Former smoker - Past Family History Father Family Medical History: Congestive Heart Failure (CHF) Mother Family Medical History: Rheumatoid Arthritis (RA), Thyroid Disorder Sister(s) Family Medical History: Cancer Additional Family Medical History / Comment(s): uterine General Exam General appearance: alert, in no apparent distress Head exam: Present: atraumatic, normocephalic Eye exam: Present: normal appearance. Absent: scleral icterus, conjunctival injection Neck exam: Present: normal inspection Respiratory exam: Present: normal lung sounds bilaterally. Absent: respiratory distress, wheezes, rales, rhonchi, stridor, accessory muscle use Cardiovascular Exam: Present: regular rate, normal rhythm, normal heart sounds. Absent: systolic murmur, diastolic murmur, rubs, gallop GI/Abdominal exam: Present: soft. Absent: distended, tenderness, guarding, rebound, rigid, mass Extremities exam: Present: normal inspection, normal capillary refill. Absent: pedal edema, calf tenderness Back exam: Present: normal inspection Neurological exam: Present: alert Skin exam: Present: warm, dry, intact, normal color. Absent: rash Course Vital Signs 10/20/24 10/20/24 10/20/24 00:01 01:50 03:28 Temperature 98.7 F 98.5 F 98.4 F Pulse Rate 84 62 62 Respiratory 18 14 14 Rate Blood Pressure 123/68 107/68 101/55 O2 Sat by Pulse 98 99 97 Oximetry Chest Pain MDM - MDM The patient had CT scan that I interpreted as negative for acute pulmonary embolism, congestive heart failure, pneumothorax. Was pt. sent in by a medical professional or institution (, PA, FUEL TESTING TECHNICIAN, urgent care, hospital, or [place] health [facility] facility...) When possible be specific @ -[No] Did you speak to anyone other than the patient for history (EMS, parent, family, police, friend...)? What history was obtained from this source @ -[No] Did you review nursing and triage notes (agree or disagree)? Why? @ -[I reviewed and agree with nursing and triage notes] Were old charts reviewed (outside hosp., previous admission, EMS record, old EKG, old radiological studies, urgent care reports/EKG's, [place] health [facility] facility records)? Report findings @ -[No old charts were reviewed] Differential Diagnosis (chest pain, altered mental status, abdominal pain women, abdominal pain men, vaginal bleeding, weakness, fever, dyspnea, syncope, headache, dizziness, GI bleed, back pain, seizure, CVA, palpatations, mental health, musculoskeletal)? @ -[Differential Chest Pain: Stable Angina, Unstable Angina, STEMI, NSTEMI Aortic Dissection, Pneumothorax, Musculoskeletal, Esophageal Spasm GERD, Cholecystitis, Pancreatitis, Zoster, this is not meant to be an all-inclusive list. EKG interpreted by me (3pts min.). @ -[I interpreted as above] X-rays interpreted by me (1pt min.). @ -[ CT interpreted by me (1pt min.). @ -I interpreted as above U/S interpreted by me (1pt. min.). @ -[None done] What testing was considered but not performed or refused? (CT, X-rays, U/S, labs)? Why? @ -[None] What meds were considered but not given or refused? Why? @ -[None] Did you discuss the management of the patient with other professionals (professionals i.e. , PA, FUEL TESTING TECHNICIAN, lab, RT, psych nurse, social media manager, call or contact centre coach, teacher, consumer loan officer, transplant case manager)? Give summary @ -[No] Was smoking cessation discussed for >3mins.? @ -[No] Was critical care preformed (if so, how long)? @ -[No] Were there social determinants of health that impacted care today? How? (Homelessness, low income, unemployed, alcoholism, drug addiction, transportation, low edu. Level, literacy, decrease access to med. care, retirement, rehab)? @ -[No] Was there de-escalation of care discussed even if they declined (Discuss DNR or withdrawal of care, Hospice)? DNR status @ -[No] What co-morbidities impacted this encounter? (DM, HTN, Smoking, COPD, CAD, Cancer, CVA, ARF, Chemo, Hep., AIDS, mental health diagnosis, sleep apnea, morbid obesity)? @ -[None] Was patient admitted / discharged? Hospital course, mention meds given and route, prescriptions, significant lab abnormalities, going to OR and other pert inent info. @ -[Patient is 49-year-old woman here to have evaluation after episode of chest pain. The patient's exam and workup here not suggestive of acute ischemia. She did have elevated D-dimer and therefore CT angiogram obtained with no evidence of pulmonary embolism. Patient to follow with her advanced manufacturing engineer. Return parameters discussed Undiagnosed new problem with uncertain prognosis? @ -[No] Drug Therapy requiring intensive monitoring for toxicity (Heparin, Nitro, Insulin, Cardizem)? @ -[No] Were any procedures done? @ -[No] Diagnosis/symptom? @ -[Acute chest pain Acute, or Chronic, or Acute on Chronic? @ -[Acute Uncomplicated (without systemic symptoms) or Complicated (systemic symptoms)? @ -[Uncomplicated Side effects of treatment? @ -[No] Exacerbation, Progression, or Severe Exacerbation? @ -[No] Poses a threat to life or bodily function? How? (Chest pain, [place], [place], pneumonia, PE, COPD, DKA, ARF, appy, cholecystitis, CVA, Diverticulitis, Homicidal, Suicidal, threat to staff... and all critical care pts) @ -[No] All treatments are based on ideal body weight as in ED triage Disposition Clinical Impression: Chest pain Disposition: HOME SELF-CARE Condition: Good Instructions (If sedation given, give patient instructions): Chest Pain (ED) Is patient prescribed a controlled substance at d/c from ED?: No Referrals: Dayana Rouse MD [Primary Care Provider] - 1-2 days
[2024-10-20 01:57] VITALS: PULSE 62; RESP 14
--- NOTE | 2024-10-20 03:26 | CT ---
EXAM: CT Angiography Chest With Intravenous Contrast CLINICAL HISTORY: elevated d dimer, chest pain, possible PE TECHNIQUE: Axial computed tomographic angiography images of the chest with intravenous contrast. CTDI is 36.4 mGy and DLP is 351.5 mGy-cm. This CT exam was performed using one or more of the following dose reduction techniques: automated exposure control, adjustment of the mA and/or kV according to patient size, and/or use of iterative reconstruction technique. MIP reconstructed images were created and reviewed. Coronal and sagittal reformatted images were created and reviewed. COMPARISON: No relevant prior studies available. FINDINGS: Pulmonary arteries: Unremarkable. No pulmonary embolism. Aorta: No acute findings. No thoracic aortic aneurysm. Lungs: Unremarkable. No mass. No consolidation. Pleural space: Unremarkable. No significant effusion. No pneumothorax. Heart: Unremarkable. No cardiomegaly. No significant pericardial effusion. No evidence of RV dysfunction. Bones/joints: Mild degenerative changes. Soft tissues: Unremarkable. Lymph nodes: Unremarkable. No enlarged lymph nodes. Stomach and bowel: Partial gastrectomy sutures. IMPRESSION: No pulmonary embolism. No acute findings
[2024-10-20 03:35] VITALS: BP 101/55; TEMP 98.4
== END 2024-10-20 03:50 | disposition home or self-care (01) ==
LOC: EC 23:45
DX: R07.89 Other chest pain (principal); Z87.891 Personal history of nicotine dependence; Z91.030 Bee allergy status; Z88.8 Allergy status to other drugs, medicaments and biological substances
CPT/HCPCS: 36415; 93005; 85379; 80053; 83735; 84484; 85025; 85610; 85730; 71275; 99285; Q9967

== ENCOUNTER → 2024-11-23 | Outpatient (CLI) | payer MEDICARE ==
[2024-11-23 12:42] LABS: INR 0.8 (<1.2); Partial Thromboplastin Time 22.4 sec (22.0-30.0); Prothrombin Time 9.4 sec (10.0-12.5)
[2024-11-23 15:14] LABS: HCT 42.9 % (37.2-46.3); MCH 29.9 pg (27.0-32.0); MCHC 32.6 g/dL (32.0-37.0); MCV 91.7 FL (80.0-97.0); Mean Platelet Volume 8.6 FL (9.5-12.2); NRBC Per 100 WBC 0 X 10*3/uL (0.00-0.01); Platelet Count 334 X 10*3/uL (140-440); RBC 4.68 X 10*6/uL (4.10-5.20); RDW 13.8 % (11.5-14.5); WBC 11.46 X 10*3/uL (4.50-10.00)
[2024-11-23 19:17] LABS: Prealbumin 33.5 mg/dL (18.0-42.0)
[2024-11-23 19:38] LABS: % Iron Saturation 36.73 (12.00-45.00); ALT 22 U/L (8-44); AST 22 U/L (13-35); Albumin 4.6 g/dL (3.8-4.9); Albumin/Globulin Ratio 1.84 Ratio (1.60-3.17); Alkaline Phosphatase 80 U/L (41-126); Blood Urea Nitrogen 14.4 mg/dL (9.0-27.0); Calcium 9.1 mg/dL (8.7-10.3); Chloride 101 mmol/L (96-109); Chol/HDL Ratio 3.16 Ratio; Globulin 2.5 g/dL (1.6-3.3); Glucose 85 mg/dL (70-110); Iron 144 UG/DL (50-170); LDL Cholesterol,Calculated 149.3 mg/dL (0.0-131.0); Magnesium 2.2 mg/dL (1.5-2.4); Phosphorus 4.2 mg/dL (2.4-5.1); Sodium 140 mmol/L (135-145); Total Bilirubin 0.2 mg/dL (0.3-1.2); Total Iron Binding Capacity 392 UG/DL (228-460); Total Protein 7.1 g/dL (6.2-8.2)
== END | disposition home or self-care (01) ==
LOC: LABWHC1 11:18
PROVIDERS: ATTEND Surgery Plastic and Reconstructive Surgery
DX: E66.01 Morbid (severe) obesity due to excess calories (principal); E89.1 Postprocedural hypoinsulinemia; D50.8 Other iron deficiency anemias; E44.0 Moderate protein-calorie malnutrition; E55.9 Vitamin D deficiency, unspecified; K74.1 Hepatic sclerosis; N19 Unspecified kidney failure; K91.2 Postsurgical malabsorption, not elsewhere classified; E45 Retarded development following protein-calorie malnutrition; T56.894A Toxic effect of other metals, undetermined, initial encounter; K50.90 Crohn's disease, unspecified, without complications
CPT/HCPCS: 36415; 80053; 80061; 82306; 82525; 82607; 82728; 82746; 83036; 83540; 83550; 83735; 83970; 84100; 84134; 84255; 84425; 84443; 84590; 84630; 85027; 85610; 85730

== ENCOUNTER 2024-11-30 08:17 | Day surgery (SDC) | payer MEDICARE ==
[2024-11-27 15:31] VITALS: BMI 28.4
--- NOTE | 2024-11-30 06:36 | P.GSHP ---
History of Present Illness H&P Date: 11/30/24 CHIEF COMPLAINT: Cholecystitis HISTORY OF PRESENT ILLNESS: The patient is a 49-year-old female who presents with history of epigastric including right upper quadrant abdominal pain. She underwent diagnostic studies for her gallbladder. Separately her clinical picture was consistent with cholecystitis. Now she presents for surgical intervention. Patient had multiple medical risks assessments during recent hospitalization at outside facility in the past 1 month. PAST MEDICAL HISTORY: Please see list PAST SURGICAL HISTORY: Please see list MEDICATIONS: Please see list ALLERGIES: Please see list SOCIAL HISTORY: Please see list FAMILY HISTORY: Please see list REVIEW OF ORGAN SYSTEMS: CONSTITUTIONAL: No reports of fevers or chills. HEENT: Denies any troubles with the vision or hearing. ENDOCRINE: No reports of hypothyroidism. No diabetes. RESPIRATORY: No recent pneumonias. CARDIOVASCULAR: Denies chest pain or palpitations GI: No blood in stools or constipation. MUSCULOSKELETAL: Has occasional joint pain including back pain. NEURO: No seizure disorders or headaches. No recent stroke. PSYCH: No depression or suicidal ideation. GENITOURINARY: No active blood in urine. No urinary hesitancy. HEMATOLOGIC: No personal or family history of DVTs or pulmonary emboli. SKIN: No skin cancer. PHYSICAL EXAM: VITAL SIGNS: Afebrile vital signs stable GENERAL: Well-developed pleasant in no acute distress. HEENT: No scleral icterus. Extraocular movements grossly intact. Moist buccal mucosa. NECK: Supple without lymphadenopathy. CHEST: Unlabored respirations. Equal bilateral excursions. CARDIOVASCULAR: Regular rate regular rhythm rhythm. Distal 2+ pulses. ABDOMEN: Soft, nondistended. Tender along the epigastrium and right upper quadrant. MUSCULOSKELETAL: No clubbing, cyanosis, or edema. NEURO: Cranial nerves II to XII within normal limits. No focal or lateralizing signs. PSYCH: Alert and oriented to person, place and time. SKIN: Well-perfused good skin turgor. ASSESSMENT: 1. Epigastric and right upper quadrant abdominal pain 2. Chronic cholecystitis 3. Symptomatic gallstones. PLAN: 1. Will need a robotic cholecystectomy possible open. Benefits and risks were described. 2. Heparin for DVT prophylaxis 5000 units. 3. Antibiotic prophylaxis. 4. CBC and CMP on day of procedure 5. Non-narcotic pre and post op pain management reviewed. 6. Indocyanine green for biliary imaging. Past Medical History Past Medical History: Asthma, Hypertension, Osteoarthritis (OA), Thyroid Disorder Additional Past Medical History / Comment(s): kidney stones, DIVERTICULITIS. graves disease, thyroid eye disease. POTS, gallbladder disorder History of Any Multi-Drug Resistant Organisms: None Reported Past Surgical History: Bariatric Surgery, Section, Joint Replacement, Orthopedic Surgery, Tonsillectomy, Uterine Ablation Additional Past Surgical History / Comment(s): eye surgery, rt foot, gastric s leeve 12/14/22. RIGHT TOTAL KNEE REPLACEMENT. egd, colonoscopy Past Anesthesia/Blood Transfusion Reactions: Postoperative Nausea & Vomiting (PONV) Smoking Status: Former smoker - Past Family History Father Family Medical History: Congestive Heart Failure (CHF) Mother Family Medical History: Rheumatoid Arthritis (RA), Thyroid Disorder Sister(s) Family Medical History: Cancer Additional Family Medical History / Comment(s): uterine Medications and Allergies Home Medications Medication Instructions Recorded Confirmed Type Dextroamphetamine/Amphetamine 30 mg PO BID 10/04/23 11/27/24 History [Adderall] Pnv,Calcium 72/Iron/Folic Acid 1 tab PO DAILY 10/04/23 11/27/24 History [Westab Plus Tablet] Levothyroxine Sodium [Synthroid] 137 mcg PO DAILY 11/27/24 11/27/24 History Metoprolol Tartrate [Lopressor] 50 mg PO DAILY 11/27/24 11/27/24 History Midodrine HCl [ProAmantine] 2.5 mg PO TID 11/27/24 11/27/24 History busPIRone HCL 15 mg PO TID 11/27/24 11/27/24 History lamoTRIgine [LaMICtal Xr] 200 mg PO DAILY 11/27/24 11/27/24 History Allergies Allergy/AdvReac Type Severity Reaction Status Date / Time adhesive tape Allergy Rash/Hives Verified 11/27/24 15:19 bacitracin Allergy Rash/Hives Verified 11/27/24 15:19 [From Neosporin ([id number])] bee venom protein (honey bee) Allergy Swelling Verified 11/27/24 15:19 neomycin Allergy Rash/Hives Verified 11/27/24 15:19 [From Neosporin ([id number])] polymyxin B Allergy Rash/Hives Verified 11/27/24 15:19 [From Neosporin ([id number])] ondansetron [From Zofran] AdvReac Intermediate Rash/Hives Verified 11/27/24 15:19
--- NOTE | 2024-11-30 06:38 | P.HPADDEND ---
H&P Addendum H&P Addendum Date: 11/30/24 Patient had recent labs demonstrating leukocytosis. Repeat CBC on admission advised.
[~2024-11-30 08:17] MED LIST changes: +INDOCYANINE GREEN 25 MG VIAL IV STA; +MIDAZOLAM 2 MG/2 ML VIAL IV PRN; -SODIUM CHLORIDE 0.9% 500 ML 500 ML in EMPTY BAG 1 BAG IV PRN
[2024-11-30] MEDS: IV FLUID CONTINUATION 1,000 ML IV ONE (09:00)
[2024-11-30] MEDS: LACTATED RINGERS 1,000 ML IV SCH (09:09)
[2024-11-30] MEDS: SCOPOLAMINE 1 MG/72 HR PATCH TRANSDERM STA (09:09)
[2024-11-30] MEDS: ONDANSETRON 4 MG/2 ML VIAL IVP STA (09:10)
[2024-11-30] MEDS: HEPARIN SODIUM,PORCINE 5,000 UNIT/ML 1 ML VIAL SQ PRN (09:17)
[2024-11-30 09:20] LABS: Basophils % (A) 0 %; Eosinophils # (A) 0.2 k/uL (0-0.7); Eosinophils % (A) 2 %; HCT 41.2 % (34.0-46.0); HGB 13.2 gm/dL (11.4-16.0); Lymphocytes # (A) 2.7 k/uL (1.0-4.8); Lymphocytes % (A) 27 %; MCH 29.1 pg (25.0-35.0); MCV 90.9 fL (80.0-100.0); Mean Platelet Volume 7.2; Monocytes # (A) 0.3 k/uL (0-1.0); Monocytes % (A) 3 %; Neutrophils # (A) 6.6 k/uL (1.3-7.7); Neutrophils % (A) 66 %; Platelet Count 470 k/uL (150-450); RBC 4.53 m/uL (3.80-5.40); WBC 9.9 k/uL (3.8-10.6)
[2024-11-30] MEDS ORDERED: ROCURONIUM 10 MG/ML (5 ML VIAL) IV ONE (09:32)
[2024-11-30] MEDS ORDERED: GLYCOPYRROLATE 0.2 MG/ML 2 ML VIAL ONE (09:32)
[2024-11-30] MEDS ORDERED: fentaNYL (PF) 50 MCG/ML 2 ML AMP ONE (09:32)
[2024-11-30] MEDS ORDERED: MIDAZOLAM 2 MG/2 ML VIAL ONE (09:32)
[2024-11-30] MEDS ORDERED: LIDOCAINE 1% INJ 10MG/ML (20 ML MDV) ONE (09:32)
[2024-11-30] MEDS ORDERED: SUCCINYLCHOLINE CHLORIDE 200 MG/10 ML VIAL IV ONE (09:32)
[2024-11-30] MEDS ORDERED: ePHEDrine 50 MG/ML 1 ML VIAL ONE (09:32)
[2024-11-30] MEDS ORDERED: HYDROmorphone (PF) 1 MG/ML ONE (09:32)
[2024-11-30] MEDS ORDERED: NEOSTIGMINE 1 MG/ML 10 ML VIAL ONE (09:32)
[2024-11-30] MEDS ORDERED: PROPOFOL 10 MG/ML 20 ML VIAL IV ONE (09:32)
[2024-11-30] MEDS: LIDOCAINE 1%-EPI 1:100,000 20 ML VIAL SQ ONE (10:05)
[2024-11-30 10:48] VITALS: RESP 16; TEMP 98
[2024-11-30] MEDS: HYDROmorphone 0.5 MG/0.5 ML SYRINGE IVP PRN (11:05)
--- NOTE | 2024-11-30 11:30 | P.OP ---
Date of Procedure: 11/30/24 Description of Procedure: SURGEON: JUSTINO MALLOY MD PREOPERATIVE DIAGNOSES: 1. Cholecystitis due to gallstones 2. Generalized anxiety disorder 3. Graves' disease 4. Postural orthostatic tachycardia syndrome POTS 5. Postop nausea and vomiting 6. Depressive disorder 7. ADD with ADHD 8. History of sepsis due to cholecystitis 9. History of sleeve gastrectomy POSTOPERATIVE DIAGNOSES: 1. Cholecystitis due to gallstones 2. Generalized anxiety disorder 3. Graves' disease 4. Postural orthostatic tachycardia syndrome POTS 5. Postop nausea and vomiting 6. Depressive disorder 7. ADD with ADHD 8. History of sepsis due to cholecystitis 9. History of sleeve gastrectomy 10. Sigmoid diverticulosis 11. Uterine fibroid OPERATION: Robotic-assisted da Nina Xi laparoscopic cholecystectomy, multiport with FIREFLY ESTIMATED BLOOD LOSS: 5 mL. SPECIMENS REMOVED: Gallbladder. COMPLICATIONS: None. OPERATIVE FINDINGS: 1. Sigmoid diverticulosis without diverticulitis 2. Chronic cholecystitis 3. Uterine fibroid INDICATIONS: The patient is a 49-year-old female recently discharged from hospital due to sepsis from acute cholecystitis at outside facility. Patient presented to the bariatric center for urgent surgical invention. Robotic assisted laparoscopic approach was described. Benefits and risks of the procedure including but not limited to bleeding, infection, injury to the biliary tree was described. Informed consent was obtained. DESCRIPTION OF PROCEDURE: Patient was brought to the operating room, placed in supine position. After general induction, the abdomen had been prepped and draped in standard sterile fashion. The robotic da Nina XI system was primed. After a timeout protocol was performed, the patient had been prepped and draped in standard sterile fashion. The patient was injected with indocyanine green. A 5 mm 0 degrees laparoscopic trocar entry was performed along the left upper quadrant. The abdomen insufflated to 15 mmHg pressure which was tolerated well. Diagnostic laparoscopy demonstrated no injury to bowel viscera or mesentery. The liver surface was unremarkable. Next, two 8 mm robotic ports were placed along the right upper abdomen. The camera 8-mm port was maintained along the epigastrium. Another 8 mm port was placed along the left upper abdominal wall after exchanging the 5 mm port. Please note that the ports were placed at least 10 to 15 cm away from the target anatomy of the gallbladder. The robot was docked along the left lateral abdomen. The patient was repositioned in reverse Trendelenburg position. Using a grasper for arm 3, a grasper for arm 4, including hook cautery for arm 1, the robotic system was docked and primed as described. Instruments were interchanged by the lens assistant including hook cautery, Bovie cautery and clip appliers. I had sat at the console. Next attention was brought to the infundibulum and cystic structures. The infundibulum and cystic duct were dissected free from surrounding tissues. The cystic duct was isolated. FIREFLY was used to identify the cystic artery and cystic structures. A critical view of safety was obtained. Large PLASTIC clips were used throughout the entire case. Using a clip boat tester, 3 clips were placed at the junction of the infundibulum and cystic duct. The cystic duct was divided between clips. Next, the cystic artery similarly clipped once and cauterized. Total of 3 clips were left along the hepatic bed. Electro-Bovie cautery was used to remove the gallbladder from the hepatic fossa. Hemostasis was checked and found to be adequate. The robot was undocked. I re-scrubbed into the case. Completion diagnostic process was performed due to patient's recent hospitalization at outside facility. Attention was brought to the pelvis due to the patient's history of gynecological malignancy per her report. Diagnostic laparoscopy demonstrated no endometriosis, 1 cm cyst along the left ovary, 5 mm cyst along the right fallopian tube, firm circular calcification submucosal along the dome of the uterus highly suspicious for fibroid, 2-3 cm or less. The appendix was unremarkable. Using a 10 mm Endo Catch bag via the left upper quadrant incision, the specimen was removed from the abdominal cavity. All pneumoperitoneum instruments were evacuated from the abdominal cavity. The incisions were reapproximated using 4-0 Monocryl in an interrupted subcuticular fashion. Fascial defects were less than 8 mm in size. Please note along the trocar sites, local anesthetic was placed as a field block prior to insertion of all instruments. Liquid glue was applied to the skin. At the end of the procedure needle, sponge, and instrument count had been verified correct by the surgical services manager. The patient was transferred to postanesthesia care unit in stable condition. Intraoperative films were shared with the patient's family. Plan - Discharge Summary Discharge Rx Participant: Yes New Discharge Prescriptions: New Cyclobenzaprine [Flexeril] 10 mg PO TID #30 tab RX: Simethicone [Gas-X] 125 mg PO AC-TID PRN #20 capsule PRN Reason: Pain Continue RX: Pnv,Calcium 72/Iron/Folic Acid [Westab Plus Tablet] 1 tab PO DAILY RX: lamoTRIgine [LaMICtal Xr] 200 mg PO DAILY RX: Metoprolol Tartrate [Lopressor] 50 mg PO DAILY RX: Dextroamphetamine/Amphetamine [Adderall] 30 mg PO BID RX: busPIRone HCL 15 mg PO TID RX: Levothyroxine Sodium [Synthroid] 137 mcg PO DAILY RX: Midodrine HCl [ProAmantine] 2.5 mg PO TID Discharge Medication List RX: Dextroamphetamine/Amphetamine [Adderall] 30 mg PO BID 10/04/23 [History] RX: Pnv,Calcium 72/Iron/Folic Acid [Westab Plus Tablet] 1 tab PO DAILY 10/04/23 [History] RX: Levothyroxine Sodium [Synthroid] 137 mcg PO DAILY 11/27/24 [History] RX: Metoprolol Tartrate [Lopressor] 50 mg PO DAILY 11/27/24 [History] RX: Midodrine HCl [ProAmantine] 2.5 mg PO TID 11/27/24 [History] RX: busPIRone HCL 15 mg PO TID 11/27/24 [History] RX: lamoTRIgine [LaMICtal Xr] 200 mg PO DAILY 11/27/24 [History] Cyclobenzaprine [Flexeril] 10 mg PO TID #30 tab 11/30/24 [Rx] RX: Simethicone [Gas-X] 125 mg PO AC-TID PRN #20 capsule 11/30/24 [Rx] [facility]Ref[facility] [place] [facility] - 12/05/24 3:00 pm Patient Instructions/Handouts: Laparoscopic Cholecystectomy (DC) Activity/Diet/Wound Care/Special Instructions: NO LONG DRIVES OR AIRPLANE RIDES OVER 30 MINUTES FOR THE NEXT 2 WEEKS, 12/14/24, DUE TO HIGH RISK OF PULMONARY EMBOLISM/DVTs May drive in 24 hours after recovery from anesthesia Recommend low-fat diet for the next 2 days. No lifting over 10 pounds in 2 weeks, 12/14/2024 May shower. No bath tub soaks for two weeks until 12/14/2024 Diet as tolerated. Use Tylenol, simethicone and ibuprofen or Aleve scheduled for the next 24-48 hours for best pain relief. Use ice along incisions for today to prevent swelling. Discharge Disposition: HOME SELF-CARE
[2024-11-30 13:38] VITALS: BP 108/71; PULSE 79
== END 2024-11-30 13:50 | disposition home or self-care (01) ==
LOC: OR 08:17
PROVIDERS: ATTEND Surgery Plastic and Reconstructive Surgery
DX: K80.10 Calculus of gallbladder with chronic cholecystitis without obstruction (principal); D25.9 Leiomyoma of uterus, unspecified; K57.30 Diverticulosis of large intestine without perforation or abscess without bleeding; E05.00 Thyrotoxicosis with diffuse goiter without thyrotoxic crisis or storm; F32.A Depression, unspecified; F41.1 Generalized anxiety disorder; F90.9 Attention-deficit hyperactivity disorder, unspecified type; G90.A Postural orthostatic tachycardia syndrome [POTS]; I10 Essential (primary) hypertension; J45.909 Unspecified asthma, uncomplicated; M19.90 Unspecified osteoarthritis, unspecified site; E07.9 Disorder of thyroid, unspecified; Z79.890 Hormone replacement therapy; Z79.899 Other long term (current) drug therapy; Z87.442 Personal history of urinary calculi; Z87.891 Personal history of nicotine dependence; Z88.8 Allergy status to other drugs, medicaments and biological substances; Z90.89 Acquired absence of other organs; Z91.030 Bee allergy status; Z98.84 Bariatric surgery status
CPT/HCPCS: 81025; 88304; 85025; 47562; J2250; J0330; J1644; J2710; J0690; J2405; J2003; J3010; J1171 ×2; J2704; J1596

== ENCOUNTER → 2024-12-05 | Outpatient (CLI) | payer MEDICARE ==
[2024-12-05 15:31] VITALS: BP 125/81; PULSE 80; RESP 16; TEMP 99.1; BMI 29.4
--- NOTE | 2024-12-05 15:46 | P.BASOAP ---
Subjective Progress Note Date: 12/05/24 She is doing better. Pathology. Went over labs. Pictures. January Objective - Vital Signs Vital signs: Vital Signs Temp 99.1 F 12/05/24 15:23 Pulse 80 12/05/24 15:23 Resp 16 12/05/24 15:23 BP 125/81 12/05/24 15:23 Pulse Ox FiO2 Intake & Output 12/04/24 12/05/24 12/05/24 18:59 06:59 18:59 Weight 80.739 kg Assessment/Plan Plan: Date: 12/05/24 Initial Weight: 102.965 kg Initial BMI: 37.5 Current Weight: 80.739 kg Current BMI: 29.4 Type of Surgery: Vertical Sleeve Gastrectomy Total Volume in Band: Previous Volume: Volume Removed: Volume Added: Band Size:
== END ==
LOC: BARWHC3 15:12
PROVIDERS: ATTEND Surgery Plastic and Reconstructive Surgery
DX: E66.01 Morbid (severe) obesity due to excess calories (principal); Z68.29 Body mass index [BMI] 29.0-29.9, adult; Z91.048 Other nonmedicinal substance allergy status; Z88.1 Allergy status to other antibiotic agents; Z88.8 Allergy status to other drugs, medicaments and biological substances
CPT/HCPCS: 99211